=== PATIENT | male | born 1965 | race African-American/Black ===

== ENCOUNTER 2017-08-04 18:05 | Inpatient (IN) | payer OTHER ==
[2017-08-04 19:11] VITALS: BMI 33.5
[2017-08-04] MEDS ORDERED: MELATONIN 5 MG TABLETS PO PRN (22:00)
--- NOTE | 2017-08-04 22:43 | HP ---
COWS - Scale Resting Pulse: 0= [place] 80 or Below Sweatin= Chills/Flushing Restless Observation: 3= Extraneous Movement Pupil Size: 1= Pupils >than Normal Bone or Joint Aches: 1= Mild Discomfort Runny Nose/ Eye Tearin= Constantly Teary/Runny GI Upset > 30mins: 3= Vomiting/Diarrhea Tremor Observation: 0= None Yawning Observation: 1= 1-2x During Session Anxiety or Irritability: 2=Irritable/Anxious Goose Flesh Skin: 0=Smooth Skin COWS Score: 16 CIWA Score - CIWA Score Nausea/Vomitin Muscle Tremors: 1-None Visible, but [place] Anxiety: 3 Agitation: 3 Paroxysmal Sweats: 2 Orientation: 0-Oriented Tacttile Disturbances: 0-None Auditory Disturbances: 0-None Visual Disturbances: 0-None Headache: 2-Mild CIWA-Ar Total Score: 14 Admission ROS S - HPI Chief Complaint: heroin and alcohol withdrawal symptoms Allergies/Adverse Reactions: Allergies Allergy/AdvReac Type Severity Reaction Status Date / Time No Known Allergies Allergy Verified 08/04/17 22:07 History of Present Illness: 52 yo male with hx of nicotine, cocaine, heroin and alcohol dependence is here seeking detox for the first time. PMHX: HTN, BPH, anxiety. Denies suicidal / homicidal ideation or hx of suicide attempts. Denies hx of seizures, blackouts or overdose. Last detox [facility] December 2016. Reports longest period of sobriety 5 months. Exam Limitations: No Limitations - Ebola screening Have you been sick,other than usual withdrawal symptoms: No - Review of Systems Constitutional: Chills, Diaphoresis, Changes in sleep EENT: reports: Dental Problems (missing teeth), Other (runny nose) Respiratory: reports: Cough Cardiac: reports: No Symptoms Reported GI: reports: Diarrhea, Nausea, Poor Fluid Intake, Vomiting, Abdominal cramping : reports: See HPI Musculoskeletal: reports: Back Pain Integumentary: reports: No Symptoms Reported Neuro: reports: See HPI Endocrine: reports: Increased Thirst Hematology: reports: No Symptoms Reported Psychiatric: reports: Orientated x3, Anxious Other Systems: Reviewed and Negative Patient History - Patient Medical History Hx Anemia: No Hx Asthma: No Hx Chronic Obstructive Pulmonary Disease (COPD): No Hx Cancer: No Hx Cardiac Disorders: No Hx Congestive Heart Failure: No Hx Hypertension: Yes Hx Hypercholesterolemia: No Hx Pacemaker: No HX Cerebrovascular Accident: No Hx Seizures: No Hx Dementia: No Hx Diabetes: No Hx Gastrointestinal Disorders: No Hx Liver Disease: No Hx Genitourinary Disorders: No Hx Sexually Transmitted Disorders: No Hx Renal Disease (ESRD): No Hx Thyroid Disease: No Hx Human Immunodeficiency Virus (HIV): No (last tested 3 months ago, negative ) Hx Hepatitis C: No Hx Depression: No Hx Suicide Attempt: No Hx Bipolar Disorder: No Hx Schizophrenia: No - Patient Surgical History Past Surgical History: No Hx Neurologic Surgery: No Hx Cataract Extraction: No Hx Cardiac Surgery: No Hx Lung Surgery: No Hx Breast Surgery: No Hx Breast Biopsy: No Hx Abdominal Surgery: No Hx Appendectomy: No Hx Cholecystectomy: No Hx Genitourinary Surgery: No Hx Section: No Hx Orthopedic Surgery: No - PPD History Previous Implant?: Yes Documented Results: Negative w/o proof Implanted On Prior R Admission?: No PPD to be Administered?: Yes - Smoking Cessation Smoking history: Current every day smoker Have you smoked in the past 12 months: Yes Aproximately how many cigarettes per day: 3 Hx Chewing Tobacco Use: No Initiated information on smoking cessation: Yes 'Breaking Loose' booklet given: 08/04/17 - Substance & Tx. History Hx Alcohol Use: Yes Hx Substance Use: Yes Substance Use Type: Alcohol, Cocaine, Heroin - Substances Abused Heroin Route: Inhalation Frequency: Daily Amount used: 13 bags Age of first use: 16 Date of Last Use: 08/04/17 Alcohol Route: Oral Frequency: Daily Amount used: 1 quart of [place] Liquor Age of first use: 16 Date of Last Use: 08/04/17 Cocaine Route: Inhalation Frequency: 1-2 times per week Amount used: $50 Age of first use: 50 Date of Last Use: 08/01/17 Family Disease History - Family Disease History Family Disease History: Other: Father (, unknown ), Mother (, unknown ) Admission Physical Exam [facility]HS - Vital Signs Vital Signs: Vital Signs - 24 hr 08/04/17 19:09 Temperature 97.8 F Pulse Rate 75 Respiratory 18 Rate Blood Pressure 147/109 - Physical General Appearance: Yes: Appropriately Dressed, Mild Distress, Sweating, Anxious HEENTM: Yes: EOMI, Hearing grossly Normal, Normal ENT Inspection, Normocephalic , Normal Voice, SAURABH, Pharynx Normal, Tm's normal, Rhinorrhea, Other (poor dentition) Respiratory: Yes: Chest Non-Tender, Lungs Clear, Normal Breath Sounds, No Respiratory Distress, No Accessory Muscle Use Neck: Yes: No masses,lesions,Nodules, Trachea in good position Breast: Yes: Breast Exam Deferred Cardiology: Yes: Regular Rhythm, Regular Rate Abdominal: Yes: Normal Bowel Sounds, Non Tender, Soft, Protuberent Genitourinary: Yes: Within Normal Limits Back: Yes: Normal Inspection Musculoskeletal: Yes: full range of Motion, Gait Steady, Pelvis Stable Extremities: Yes: Normal Capillary Refill, Normal Inspection, Normal Range of Motion, Non-Tender 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, Fully Oriented, Alert, Motor Strength 5/5, Depressed Affect Integumentary: Yes: Normal Color, Warm, Moist Lymphatic: Yes: Within Normal Limits - Diagnostic (1) Opioid dependence with withdrawal Current Visit: Yes Status: Acute (2) Alcohol dependence with withdrawal Current Visit: Yes Status: Acute Qualifiers: Complication of substance-induced condition: uncomplicated Qualified Code(s ): F10.230 - Alcohol dependence with withdrawal, uncomplicated (3) Cocaine dependence Current Visit: Yes Status: Acute (4) Hypertension Current Visit: Yes Status: Chronic Qualifiers: Hypertension type: essential hypertension Qualified Code(s): I10 - Essential (primary) hypertension (5) Elevated blood pressure reading with diagnosis of hypertension Current Visit: Yes Status: Acute (6) BPH (benign prostatic hyperplasia) Current Visit: Yes Status: Chronic Qualifiers: Lower urinary tract symptom presence: unspecified whether lower urinary tract symptoms present Qualified Code(s): N40.0 - Benign prostatic hyperplasia without lower urinary tract symptoms (7) Obese Current Visit: Yes Status: Chronic Qualifiers: Obesity type: unspecified obesity type Obesity classification: adult class 1 (BMI 30 - 34.9) Serious obesity comorbidity presence: with serious comorbidity (8) Difficulty sleeping Current Visit: Yes Status: Acute (9) Back pain Current Visit: Yes Status: Acute Qualifiers: Back pain location: low back pain Chronicity: acute Back pain laterality : midline Sciatica presence: without sciatica Qualified Code(s): M54.5 - Low back pain Cleared for Admission S - Detox or Rehab [facility] Level of Care: Medically Managed Detox Regimen/Protocol: Methadone/Librium BHS Breath Alcohol Content Breath Alcohol Content: 0 Urine Drug Screen - Results Drug Screen Negative: No Urine Drug Screen Results: PACO-Cocaine, OPI-Opiates
[2017-08-04] MEDS ORDERED: cloNIDine HCL 0.1 MG TABLET PO ONE (22:54)
[2017-08-04] MEDS ORDERED: MAG HYDROX/AL HYDROX/SIMETH 30 ML UNIT-DOSE CUP PO PRN (22:57)
[2017-08-04] MEDS ORDERED: chlordiazePOXIDE HCL 25 MG CAPSULE PO ONE (22:57)
[2017-08-04] MEDS ORDERED: MAGNESIUM CITRATE 300 ML BOTTLE PO PRN (22:57)
[2017-08-04] MEDS ORDERED: NICOTINE POLACRILEX 2 MG GUM BC PRN (22:57)
[2017-08-04] MEDS ORDERED: METHADONE HCL 10 MG TABLET (FOR DETOX USE ONLY) PO ONE ×2 (22:57→23:00)
[2017-08-04] MEDS ORDERED: LOPERAMIDE HCL 2 MG CAPSULE PO PRN (22:57)
[2017-08-04] MEDS ORDERED: chlordiazePOXIDE HCL 25 MG CAPSULE PO PRN (22:57)
[2017-08-04] MEDS ORDERED: ACETAMINOPHEN 325 MG TABLET (FP) PO PRN (22:57)
[2017-08-04] MEDS ORDERED: IBUPROFEN 400 MG TABLET (FP) PO PRN (22:57)
[2017-08-04] MEDS ORDERED: hydrOXYzine PAMOATE 50 MG CAPSULE (FP) PO PRN (22:57)
[2017-08-04] MEDS ORDERED: guaiFENesin/D-METHORPHAN HB 10 ML UNIT-DOSE CUPS PO PRN (22:57)
[2017-08-04] MEDS ORDERED: MENTHOL/PHENOL 1 EACH UD MM PRN (22:57)
[2017-08-04] MEDS ORDERED: P-EPHED 60MG/TRIPROLIDI 2.5MG TABLET PO PRN (22:57)
[2017-08-04] MEDS ORDERED: MAGNESIUM HYDROX 2400MG/30ML ORAL SUSPENSION 30 ML CUP PO PRN (22:57)
[2017-08-04] MEDS: chlordiazePOXIDE HCL 25 MG CAPSULE PO SCH (23:59)
[2017-08-04] MEDS: CYCLOBENZAPRINE HCL 5 MG TABLET PO SCH (23:59)
[2017-08-05] MEDS: LIDOCAINE PATCH REMOVAL MC SCH ×2 (00:01→22:19)
[2017-08-05] MEDS: chlordiazePOXIDE HCL 25 MG CAPSULE PO SCH ×4 (05:40→22:17)
[2017-08-05] MEDS: CYCLOBENZAPRINE HCL 5 MG TABLET PO SCH ×3 (05:40→22:17)
[2017-08-05] MEDS: TAMSULOSIN HCL 0.4 MG CAP.ER.24H (FP) PO SCH (08:53)
--- NOTE | 2017-08-05 09:30 | CONSULT ---
[facility] Psychiatric Consult - Data Date of interview: 08/05/17 Admission source: [facility] Identifying data: This is 52 years old male, single father of two, living alone , on PA, with no hiatory of psychiatric hospitalizations, with hx of nicotine, cocaine, heroin and alcohol dependence is here seeking detox for the first time. Substance Abuse History: Smoking history: Current every day smoker. Have you smoked in the past 12 months: Yes. Aproximately how many cigarettes per day: 3. Hx Chewing Tobacco Use: No. Initiated information on smoking cessation: Yes. 'Breaking Loose' booklet given: 08/04/17. - Substance & Tx. History. Hx Alcohol Use: Yes. Hx Substance Use: Yes. Substance Use Type: Alcohol, Cocaine , Heroin. - Substances Abused. Heroin. Route: Inhalation. Frequency: Daily. Amount used: 13 bags. Age of first use: 16. Date of Last Use: . Alcohol. Route: Oral. Frequency: Daily. Amount used: 1 quart of [place] Liquor. Age of first use: 16. Date of Last Use: 08/04/17. Cocaine. Route: Inhalation. Frequency: 1-2 times per week. Amount used: $50. Age of first use: 50. Date of Last Use: 08/01/17 Medical History: Denies any significant medical problems.As per computerbhistory of HTN and Obesity Psychiatric History: Patient reports no psychiatric hospitalization history, no medications taking priormto admission. Reports history of anxiety and depression Physical/Sexual Abuse/Trauma History: Denies Additional Comment: Observation. Detox Unit Care Mental Status Exam - Mental Status Exam Alert and Oriented to: Person Cognitive Function: Fair Patient Appearance: Unkempt Mood: Euphoric Affect: Euthymic Patient Behavior: Resitive to Care, Cooperative Voice Loudness: Mildly Loud Thought Process: Goal Oriented Thought Disorder: Being Controlled Hallucinations: Denies Suicidal Ideation: Denies Homicidal Ideation: Denies Insight/Judgement: Fair Sleep: Difficulty falling asleep Appetite: Fair Muscle strength/Tone: Mild Hypotonicity Gait/Station: Normal Additional Comments: Observation. Detox Unit Care Psychiatric Findings - Problem List ([place] 1, 2,3) (1) Alcohol dependence with withdrawal Current Visit: Yes Status: Acute Qualifiers: Complication of substance-induced condition: uncomplicated Qualified Code(s ): F10.230 - Alcohol dependence with withdrawal, uncomplicated (2) Cocaine dependence Current Visit: Yes Status: Acute (3) Difficulty sleeping Current Visit: Yes Status: Acute (4) Elevated blood pressure reading with diagnosis of hypertension Current Visit: Yes Status: Acute (5) Opioid dependence with withdrawal Current Visit: Yes Status: Acute (6) BPH (benign prostatic hyperplasia) Current Visit: Yes Status: Chronic Qualifiers: Lower urinary tract symptom presence: unspecified whether lower urinary tract symptoms present Qualified Code(s): N40.0 - Benign prostatic hyperplasia without lower urinary tract symptoms (7) Hypertension Current Visit: Yes Status: Chronic Qualifiers: Hypertension type: essential hypertension Qualified Code(s): I10 - Essential (primary) hypertension (8) Obese Current Visit: Yes Status: Chronic Qualifiers: Obesity type: unspecified obesity type Obesity classification: adult class 1 (BMI 30 - 34.9) Serious obesity comorbidity presence: with serious comorbidity - Initial Treatment Plan Initial Treatment Plan: Observation. Detox Unit Care
[2017-08-05] MEDS ORDERED: METHADONE HCL 10 MG TABLET (FOR DETOX USE ONLY) PO SCH (10:00)
[2017-08-05 10:03] LABS: MCH 30.4 pg (25.7-33.7); WHITE BLOOD COUNT 7.9 K/mm3 (4.0-10.0)
[2017-08-05 10:06] LABS: HEMATOCRIT 37.8 % (35.4-49); HEMOGLOBIN 12.6 GM/dL (11.7-16.9); MCHC 33.5 g/dl (32.0-35.9); MEAN CELL VOLUME 90.7 fl (80-96); MEAN PLT VOLUME 11.9 fl (7.5-11.1); PLATELET COUNT 198 K/MM3 (134-434); RBC 4.17 M/mm3 (4.00-5.60); RDW 14.4 % (11.9-15.9)
[2017-08-05] MEDS: HYDROCHLOROTHIAZIDE 25 MG TABLET (FP) PO SCH (10:41)
[2017-08-05] MEDS: PRENATAL VITAMINS W/ FOLIC ACID TABLET (FP) PO SCH (10:41)
[2017-08-05] MEDS: amLODIPine BESYLATE 10 MG TABLET (FP) PO SCH (10:41)
[2017-08-05] MEDS: NICOTINE 14 MG/24 HOURS TOPICAL PATCH TD SCH (10:42)
[2017-08-05] MEDS: LISINOPRIL 10 MG TABLET (FP) PO SCH (10:42)
[2017-08-05] MEDS: LIDOCAINE 5% TOPICAL PATCH TP SCH (10:45)
[2017-08-05 10:46] LABS: CHLORIDE 108 mmol/L (98-107); POTASSIUM 4.2 mmol/L (3.5-5.1); SODIUM 143 mmol/L (136-145)
--- NOTE | 2017-08-05 11:02 | PN ---
S CIWA - CIWA Score Nausea/Vomitin-Mild Nausea/No Vomiting Muscle Tremors: 1-None Visible, but [place] Anxiety: 2 Agitation: 0-Normal Activity Paroxysmal Sweats: No Perspiration Orientation: 0-Oriented Tacttile Disturbances: 0-None Auditory Disturbances: 0-None Visual Disturbances: 0-None Headache: 0-None Present CIWA-Ar Total Score: 4 BHS COWS - Scale Resting Pulse: 0= [place] 80 or Below Sweatin= Chills/Flushing Restless Observation: 0= Sits Still Pupil Size: 0= Normal to Room Light Bone or Joint Aches: 1= Mild Discomfort Runny Nose/ Eye Tearin= None GI Upset > 30mins: 1= Stomach Cramp Tremor Observation of Outstretched Hands: 1= Tremor [place], Not Seen Yawning Observation: 0= None Anxiety or Irritability: 1=Feels Anxious/Irritable Goose Flesh Skin: 0=Smooth Skin COWS Score: 5 BHS Progress Note (SOAP) Subjective: Patient presents resting in bed. In no acute distress. C/O anxiety, chills and mild tremors. Denies CP,SOB and dizziness. Objective: 08/05/17 11:00 General: Alert and oriented x3. In no acute distress Skin: warm and moist GI: soft, NT and ND Ext: no edema Laboratory Tests 08/05/17 08/05/17 07:00 07:00 WBC 7.9 RBC 4.17 Hgb 12.6 Hct 37.8 MCV 90.7 MCH 30.4 MCHC 33.5 RDW 14.4 Plt Count 198 MPV 11.9 H Sodium 143 Potassium 4.2 Chloride 108 H Vital Signs Temperature 98.1 F 08/05/17 09:50 Pulse Rate 76 08/05/17 09:50 Respiratory Rate 18 08/05/17 09:50 Blood Pressure 150/115 08/05/17 09:50 O2 Sat by Pulse Oximetry (%) 08/05/17 11:01 Assessment: 08/05/17 11:01 Etoh/Heroin withdrawal syndrome Withdrawal syndrome Plan: Continue oral fluids and detox continue to monitor clinically
[2017-08-05 11:14] LABS: ALK PHOS 122 U/L (45-117); ANION GAP 10 (8-16); BILIRUBIN,TOTAL 0.3 mg/dL (0.2-1.0); BLOOD UREA NITROGEN 18 mg/dL (7-18); CALCIUM 8.2 mg/dL (8.5-10.1); CO2 25 mmol/L (21-32); CREATININE 1.2 mg/dL (0.7-1.3); GLUCOSE,RANDOM 165 mg/dL (74-106); SGOT/AST 26 U/L (15-37); SGPT/ALT 38 U/L (12-78); TOT PROT 6.4 g/dl (6.4-8.2)
--- NOTE | 2017-08-05 11:59 | EKG ---
Test Reason : Blood Pressure : / mmHG Vent. Rate : 068 BPM Atrial Rate : 068 BPM P-R Int : 196 ms QRS Dur : 104 ms QT Int : 374 ms P-R-T Axes : -15 015 061 degrees QTc Int : 397 ms NORMAL SINUS RHYTHM INCOMPLETE RIGHT BUNDLE BRANCH BLOCK SEPTAL INFARCT (CITED ON OR BEFORE 04-AUG-2017) ABNORMAL ECG WHEN COMPARED WITH ECG OF 04-AUG-2017 23:18, NO SIGNIFICANT CHANGE WAS FOUND Confirmed by GÓMEZ WALLACE MD ([id number]) on 08/05/2017 11:58:48 AM Referred By: Confirmed By:GÓMEZ WALLACE MD
--- NOTE | 2017-08-05 12:00 | EKG ---
Test Reason : Blood Pressure : / mmHG Vent. Rate : 071 BPM Atrial Rate : 071 BPM P-R Int : 194 ms QRS Dur : 106 ms QT Int : 358 ms P-R-T Axes : 016 -10 086 degrees QTc Int : 389 ms NORMAL SINUS RHYTHM INCOMPLETE RIGHT BUNDLE BRANCH BLOCK SEPTAL INFARCT , AGE UNDETERMINED ABNORMAL ECG NO PREVIOUS ECGS AVAILABLE Confirmed by GÓMEZ WALLACE MD ([id number]) on 08/05/2017 11:59:30 AM Referred By: Confirmed By:GÓMEZ WALLACE MD
[2017-08-05] MEDS ORDERED: cloNIDine HCL 0.1 MG TABLET PO ONE (13:45)
[2017-08-05 14:05] LABS: URINE APPEARANCE CLEAR; URINE BILIRUBIN NEGATIVE (<2.0 mg/dL); URINE COLOR COLORLESS; URINE GLUCOSE (UA) NEGATIVE (NEGATIVE); URINE KETONE NEGATIVE (NEGATIVE); URINE LEUK ESTERASE NEGATIVE (NEGATIVE); URINE NITRITE NEGATIVE (NEGATIVE); URINE PROTEIN NEGATIVE (NEGATIVE); URINE UROBILINOGEN NEGATIVE mg/dL (0.2-1.0)
--- NOTE | 2017-08-05 14:43 | PN ---
S Progress Note Note: NOTIFIED BY RN PATIENT HAS ELEVATED BP. MORNING ANTIHYPERTENSIVES GIVEN ORDERED. WILL ORDER STAT DOSE OF CLONIDINE 0.1MG X ONE AND CONTINUE TO MONITOR CLINICALLY. Vital Signs Temperature 98.1 F 08/05/17 13:09 Pulse Rate 67 08/05/17 13:09 Respiratory Rate 16 08/05/17 13:09 Blood Pressure 154/109 08/05/17 13:09 O2 Sat by Pulse Oximetry (%)
[2017-08-05] MEDS: THIAMINE HCL 100 MG TABLET (FP) PO SCH (22:17)
[2017-08-06] MEDS: CYCLOBENZAPRINE HCL 5 MG TABLET PO SCH ×3 (06:32→22:58)
[2017-08-06] MEDS: chlordiazePOXIDE HCL 25 MG CAPSULE PO SCH ×3 (06:32→17:53)
[2017-08-06] MEDS: TAMSULOSIN HCL 0.4 MG CAP.ER.24H (FP) PO SCH (09:39)
[2017-08-06] MEDS: METHADONE HCL 5 MG TABLET (FOR DETOX USE ONLY) PO SCH (10:37)
[2017-08-06] MEDS: amLODIPine BESYLATE 10 MG TABLET (FP) PO SCH (10:39)
[2017-08-06] MEDS: PRENATAL VITAMINS W/ FOLIC ACID TABLET (FP) PO SCH (10:39)
[2017-08-06] MEDS: LIDOCAINE 5% TOPICAL PATCH TP SCH (10:39)
[2017-08-06] MEDS: LISINOPRIL 10 MG TABLET (FP) PO SCH (10:39)
[2017-08-06] MEDS: NICOTINE 14 MG/24 HOURS TOPICAL PATCH TD SCH (10:40)
[2017-08-06] MEDS: HYDROCHLOROTHIAZIDE 25 MG TABLET (FP) PO SCH (10:40)
--- NOTE | 2017-08-06 12:53 | PN ---
[facility] CIWA - CIWA Score Nausea/Vomitin-No Nausea/No Vomiting Muscle Tremors: None Anxiety: 0-No Anxiety, at Ease Agitation: 0-Normal Activity Paroxysmal Sweats: No Perspiration Orientation: 0-Oriented Tacttile Disturbances: 0-None Auditory Disturbances: 0-None S COWS - Scale Resting Pulse: 0= [place] 80 or Below Sweatin= No chills or Flushing Restless Observation: 0= Sits Still Pupil Size: 0= Normal to Room Light Bone or Joint Aches: 0= None Runny Nose/ Eye Tearin= None GI Upset > 30mins: 0= None Tremor Observation of Outstretched Hands: 0= None Yawning Observation: 0= None Anxiety or Irritability: 0= None Goose Flesh Skin: 0=Smooth Skin COWS Score: 0
--- NOTE | 2017-08-06 13:01 | PN ---
S Progress Note (SOAP) Subjective: Pt without complaints, feeling sleepy, on librium and methadone detox Objective: 08/06/17 12:55 CBC,CMP WBC 7.9 K/mm3 (4.0-10.0) 08/05/17 07:00 RBC 4.17 M/mm3 (4.00-5.60) 08/05/17 07:00 Hgb 12.6 GM/dL (11.7-16.9) 08/05/17 07:00 Hct 37.8 % (35.4-49) 08/05/17 07:00 MCV 90.7 fl (80-96) 08/05/17 07:00 MCH 30.4 pg (25.7-33.7) 08/05/17 07:00 MCHC 33.5 g/dl (32.0-35.9) 08/05/17 07:00 RDW 14.4 % (11.9-15.9) 08/05/17 07:00 Plt Count 198 K/MM3 (134-434) 08/05/17 07:00 MPV 11.9 fl (7.5-11.1) H 08/05/17 07:00 Sodium 143 mmol/L (136-145) 08/05/17 07:00 Potassium 4.2 mmol/L (3.5-5.1) 08/05/17 07:00 Chloride 108 mmol/L (98-107) H 08/05/17 07:00 Carbon Dioxide 25 mmol/L (21-32) 08/05/17 07:00 Anion Gap 10 (8-16) 08/05/17 07:00 BUN 18 mg/dL (7-18) 08/05/17 07:00 Creatinine 1.2 mg/dL (0.7-1.3) 08/05/17 07:00 Creat Clearance w eGFR > 60 (>60) 08/05/17 07:00 Random Glucose 165 mg/dL (74-106) H 08/05/17 07:00 Calcium 8.2 mg/dL (8.5-10.1) L 08/05/17 07:00 Total Bilirubin 0.3 mg/dL (0.2-1.0) 08/05/17 07:00 AST 26 U/L (15-37) 08/05/17 07:00 ALT 38 U/L (12-78) 08/05/17 07:00 Alkaline Phosphatase 122 U/L (45-117) H 08/05/17 07:00 Total Protein 6.4 g/dl (6.4-8.2) 08/05/17 07:00 Albumin 3.0 g/dl (3.4-5.0) L 08/05/17 07:00 Vital Signs - 24 hr 08/05/17 08/05/17 08/05/17 13:09 15:32 18:04 Temperature 98.1 F 97.9 F 97.7 F Pulse Rate 67 68 65 Respiratory 16 16 18 Rate Blood Pressure 154/109 135/76 140/93 08/05/17 08/06/17 08/06/17 22:34 00:30 03:30 Temperature 98.1 F Pulse Rate 67 Respiratory 20 18 18 Rate Blood Pressure 132/90 08/06/17 08/06/17 06:00 10:00 Temperature 97.9 F 98.1 F Pulse Rate 68 71 Respiratory 18 18 Rate Blood Pressure 145/96 149/93 alert and oriented feeling fine PE grossly nl PE Assessment: 08/06/17 13:00 Alcohol and opioid use disorder Plan: Continue detox protocols
[2017-08-06] MEDS: chlordiazePOXIDE 5 MG CAPSULE PO SCH (22:58)
[2017-08-06] MEDS: THIAMINE HCL 100 MG TABLET (FP) PO SCH (22:58)
[2017-08-06] MEDS: LIDOCAINE PATCH REMOVAL MC SCH (22:58)
[2017-08-07] MEDS: chlordiazePOXIDE 5 MG CAPSULE PO SCH ×3 (05:36→18:25)
[2017-08-07] MEDS: CYCLOBENZAPRINE HCL 5 MG TABLET PO SCH ×3 (05:36→23:02)
--- NOTE | 2017-08-07 10:02 | PN ---
BHS Progress Note (SOAP) Subjective: Tremors, sweats, interrupted sleep and back pain Objective: 08/07/17 10:01 Vital Signs - 8 hr 08/07/17 08/07/17 03:30 06:18 Temperature 97.9 F Pulse Rate 72 Respiratory 18 20 Rate Blood Pressure 135/94 Laboratory Last Values WBC 7.9 K/mm3 (4.0-10.0) 08/05/17 07:00 RBC 4.17 M/mm3 (4.00-5.60) 08/05/17 07:00 Hgb 12.6 GM/dL (11.7-16.9) 08/05/17 07:00 Hct 37.8 % (35.4-49) 08/05/17 07:00 MCV 90.7 fl (80-96) 08/05/17 07:00 MCH 30.4 pg (25.7-33.7) 08/05/17 07:00 MCHC 33.5 g/dl (32.0-35.9) 08/05/17 07:00 RDW 14.4 % (11.9-15.9) 08/05/17 07:00 Plt Count 198 K/MM3 (134-434) 08/05/17 07:00 MPV 11.9 fl (7.5-11.1) H 08/05/17 07:00 Sodium 143 mmol/L (136-145) 08/05/17 07:00 Potassium 4.2 mmol/L (3.5-5.1) 08/05/17 07:00 Chloride 108 mmol/L (98-107) H 08/05/17 07:00 Carbon Dioxide 25 mmol/L (21-32) 08/05/17 07:00 Anion Gap 10 (8-16) 08/05/17 07:00 BUN 18 mg/dL (7-18) 08/05/17 07:00 Creatinine 1.2 mg/dL (0.7-1.3) 08/05/17 07:00 Creat Clearance w eGFR > 60 (>60) 08/05/17 07:00 Random Glucose 165 mg/dL (74-106) H 08/05/17 07:00 Calcium 8.2 mg/dL (8.5-10.1) L 08/05/17 07:00 Total Bilirubin 0.3 mg/dL (0.2-1.0) 08/05/17 07:00 AST 26 U/L (15-37) 08/05/17 07:00 ALT 38 U/L (12-78) 08/05/17 07:00 Alkaline Phosphatase 122 U/L (45-117) H 08/05/17 07:00 Total Protein 6.4 g/dl (6.4-8.2) 08/05/17 07:00 Albumin 3.0 g/dl (3.4-5.0) L 08/05/17 07:00 Urine Color Colorless 08/05/17 10:10 Urine Appearance Clear 08/05/17 10:10 Urine pH 6.0 (5.0-8.0) 08/05/17 10:10 Ur Specific [place] 1.005 (1.001-1.035) 08/05/17 10:10 Urine Protein Negative (NEGATIVE) 08/05/17 10:10 Urine Glucose (UA) Negative (NEGATIVE) 08/05/17 10:10 Urine Ketones Negative (NEGATIVE) 08/05/17 10:10 Urine Blood Negative (NEGATIVE) 08/05/17 10:10 Urine Nitrite Negative (NEGATIVE) 08/05/17 10:10 Urine Bilirubin Negative (<2.0 mg/dL) 08/05/17 10:10 Urine Urobilinogen Negative mg/dL (0.2-1.0) 08/05/17 10:10 Ur Leukocyte Esterase Negative (NEGATIVE) 08/05/17 10:10 RPR Titer Nonreactive (NONREACTIVE) 08/05/17 07:00 HIV 1&2 Antibody Screen Negative 08/05/17 07:00 HIV P24 Antigen Negative 08/05/17 07:00 Labs noted Assessment: 08/07/17 10:02 Withdrawal sx Plan: Continue detox
[2017-08-07] MEDS: METHADONE HCL 5 MG TABLET (FOR DETOX USE ONLY) PO SCH (10:42)
[2017-08-07] MEDS: TAMSULOSIN HCL 0.4 MG CAP.ER.24H (FP) PO SCH (10:42)
[2017-08-07] MEDS: LISINOPRIL 10 MG TABLET (FP) PO SCH (10:42)
[2017-08-07] MEDS: PRENATAL VITAMINS W/ FOLIC ACID TABLET (FP) PO SCH (10:42)
[2017-08-07] MEDS: amLODIPine BESYLATE 10 MG TABLET (FP) PO SCH (10:42)
[2017-08-07] MEDS: HYDROCHLOROTHIAZIDE 25 MG TABLET (FP) PO SCH (10:43)
[2017-08-07] MEDS: LIDOCAINE 5% TOPICAL PATCH TP SCH (10:43)
[2017-08-07] MEDS: NICOTINE 14 MG/24 HOURS TOPICAL PATCH TD SCH (10:43)
[2017-08-07] MEDS: LIDOCAINE PATCH REMOVAL MC SCH (22:55)
[2017-08-07] MEDS: THIAMINE HCL 100 MG TABLET (FP) PO SCH (23:02)
[2017-08-07] MEDS: chlordiazePOXIDE HCL 10 MG CAPSULE PO SCH (23:02)
[2017-08-08] MEDS: chlordiazePOXIDE HCL 10 MG CAPSULE PO SCH ×3 (05:34→17:55)
[2017-08-08] MEDS: CYCLOBENZAPRINE HCL 5 MG TABLET PO SCH ×2 (05:37→13:51)
[2017-08-08] MEDS ORDERED: METHADONE HCL 10 MG TABLET (FOR DETOX USE ONLY) PO SCH (10:00)
[2017-08-08] MEDS: PRENATAL VITAMINS W/ FOLIC ACID TABLET (FP) PO SCH (10:11)
[2017-08-08] MEDS: HYDROCHLOROTHIAZIDE 25 MG TABLET (FP) PO SCH (10:12)
[2017-08-08] MEDS: LISINOPRIL 10 MG TABLET (FP) PO SCH (10:12)
[2017-08-08] MEDS: amLODIPine BESYLATE 10 MG TABLET (FP) PO SCH (10:12)
[2017-08-08] MEDS: TAMSULOSIN HCL 0.4 MG CAP.ER.24H (FP) PO SCH (10:12)
[2017-08-08] MEDS: NICOTINE 14 MG/24 HOURS TOPICAL PATCH TD SCH (10:12)
[2017-08-08] MEDS: LIDOCAINE 5% TOPICAL PATCH TP SCH (10:15)
[2017-08-08] MEDS ORDERED: ENALAPRIL MALEATE 10 MG TABLET (FP) PO ONE (16:30)
[2017-08-08] MEDS ORDERED: ENALAPRIL MALEATE 10 MG TABLET (FP) PO SCH (16:30)
--- NOTE | 2017-08-08 16:31 | PN ---
[facility] Progress Note (SOAP) Subjective: feeling better from alcohol and opiate withdrawal sx Objective: 08/08/17 16:29 Vital Signs Temperature 97.7 F 08/08/17 13:10 Pulse Rate 75 08/08/17 13:10 Respiratory Rate 18 08/08/17 13:10 Blood Pressure 147/81 08/08/17 13:10 O2 Sat by Pulse Oximetry (%) Laboratory Last Values WBC 7.9 K/mm3 (4.0-10.0) 08/05/17 07:00 RBC 4.17 M/mm3 (4.00-5.60) 08/05/17 07:00 Hgb 12.6 GM/dL (11.7-16.9) 08/05/17 07:00 Hct 37.8 % (35.4-49) 08/05/17 07:00 MCV 90.7 fl (80-96) 08/05/17 07:00 MCH 30.4 pg (25.7-33.7) 08/05/17 07:00 MCHC 33.5 g/dl (32.0-35.9) 08/05/17 07:00 RDW 14.4 % (11.9-15.9) 08/05/17 07:00 Plt Count 198 K/MM3 (134-434) 08/05/17 07:00 MPV 11.9 fl (7.5-11.1) H 08/05/17 07:00 Sodium 143 mmol/L (136-145) 08/05/17 07:00 Potassium 4.2 mmol/L (3.5-5.1) 08/05/17 07:00 Chloride 108 mmol/L (98-107) H 08/05/17 07:00 Carbon Dioxide 25 mmol/L (21-32) 08/05/17 07:00 Anion Gap 10 (8-16) 08/05/17 07:00 BUN 18 mg/dL (7-18) 08/05/17 07:00 Creatinine 1.2 mg/dL (0.7-1.3) 08/05/17 07:00 Creat Clearance w eGFR > 60 (>60) 08/05/17 07:00 Random Glucose 165 mg/dL (74-106) H 08/05/17 07:00 Calcium 8.2 mg/dL (8.5-10.1) L 08/05/17 07:00 Total Bilirubin 0.3 mg/dL (0.2-1.0) 08/05/17 07:00 AST 26 U/L (15-37) 08/05/17 07:00 ALT 38 U/L (12-78) 08/05/17 07:00 Alkaline Phosphatase 122 U/L (45-117) H 08/05/17 07:00 Total Protein 6.4 g/dl (6.4-8.2) 08/05/17 07:00 Albumin 3.0 g/dl (3.4-5.0) L 08/05/17 07:00 Urine Color Colorless 08/05/17 10:10 Urine Appearance Clear 08/05/17 10:10 Urine pH 6.0 (5.0-8.0) 08/05/17 10:10 Ur Specific [place] 1.005 (1.001-1.035) 08/05/17 10:10 Urine Protein Negative (NEGATIVE) 08/05/17 10:10 Urine Glucose (UA) Negative (NEGATIVE) 08/05/17 10:10 Urine Ketones Negative (NEGATIVE) 08/05/17 10:10 Urine Blood Negative (NEGATIVE) 08/05/17 10:10 Urine Nitrite Negative (NEGATIVE) 08/05/17 10:10 Urine Bilirubin Negative (<2.0 mg/dL) 08/05/17 10:10 Urine Urobilinogen Negative mg/dL (0.2-1.0) 08/05/17 10:10 Ur Leukocyte Esterase Negative (NEGATIVE) 08/05/17 10:10 RPR Titer Nonreactive (NONREACTIVE) 08/05/17 07:00 HIV 1&2 Antibody Screen Negative 08/05/17 07:00 HIV P24 Antigen Negative 08/05/17 07:00 lab noted Assessment: 08/08/17 16:30 mild withdrawal sx 08/08/17 16:30 hypertension Plan: medically supervised detox follow up with cardiology for bp monitoring
[2017-08-09] MEDS ORDERED: METHADONE HCL 5 MG TABLET (FOR DETOX USE ONLY) PO SCH (06:00)
[2017-08-09] MEDS: CYCLOBENZAPRINE HCL 5 MG TABLET PO SCH ×3 (07:10→14:30)
[2017-08-09] MEDS: LIDOCAINE PATCH REMOVAL MC SCH (08:36)
[2017-08-09] MEDS: THIAMINE HCL 100 MG TABLET (FP) PO SCH (08:36)
[2017-08-09] MEDS ORDERED: ENALAPRIL MALEATE 10 MG TABLET (FP) PO SCH (10:00)
--- NOTE | 2017-08-09 10:49 | PN ---
S Progress Note (SOAP) Subjective: ALERT,NO COMPLAINT Objective: 08/09/17 10:47 Vital Signs Temperature 97.7 F 08/09/17 08:09 Pulse Rate 78 08/09/17 08:09 Respiratory Rate 20 08/09/17 08:09 Blood Pressure 125/104 08/09/17 08:09 O2 Sat by Pulse Oximetry (%) Assessment: 08/09/17 10:48 DETOX COMPLETED,NO WITHDRAWAL SYMPTOM Plan: DISCHARGE TODAY,FOLLOW UP WITH AFTER CARE PROGRAM ARRANGEMENT
--- NOTE | 2017-08-09 10:55 | DS ---
[facility] Detox Discharge Summary Admission Date: 08/04/17 Discharge Date: 08/09/17 - History Present History: Alcohol Dependence, Cocaine Dependence, Opioid Dependence Pertinent Past History: HYPERTENSION BPH - Physical Exam Results Vital Signs: Vital Signs Temperature 97.7 F 08/09/17 08:09 Pulse Rate 78 08/09/17 08:09 Respiratory Rate 20 08/09/17 08:09 Blood Pressure 125/104 08/09/17 08:09 O2 Sat by Pulse Oximetry (%) Pertinent Admission Physical Exam Findings: WITHDRAWAL SIGNS AND SYMPTOM - Treatment Hospital Course: Detox Protocol Followed, Detoxed Safely, Responded well, Discharged Condition Good, Rehab Referral Accepted Patient has Accepted a Rehab Referral to: [facility] - Medication Discharge Medications: Ambulatory Orders Tamsulosin HCl 4 mg PO DAILY 08/04/17 Amlodipine Besylate [Norvasc -] 10 mg PO DAILY #30 tablet 08/08/17 Enalapril Maleate [Vasotec] 20 mg PO DAILY 30 Days #30 tablet 08/08/17 Hydrochlorothiazide [Hctz -] 25 mg PO DAILY #30 tablet 08/08/17 Tamsulosin HCl [Flomax -] 0.4 mg PO DAILY@0830 #30 cap.er.24h 08/08/17 - Diagnosis (1) Opioid dependence with withdrawal Current Visit: Yes Status: Chronic (2) Cocaine dependence Current Visit: Yes Status: Acute Qualifiers: Substance use status: uncomplicated Qualified Code(s): F14.20 - Cocaine dependence, uncomplicated (3) Alcohol dependence with withdrawal Current Visit: Yes Status: Chronic Qualifiers: Complication of substance-induced condition: uncomplicated Qualified Code(s ): F10.230 - Alcohol dependence with withdrawal, uncomplicated (4) BPH (benign prostatic hyperplasia) Current Visit: Yes Status: Chronic Qualifiers: Lower urinary tract symptom presence: unspecified whether lower urinary tract symptoms present Qualified Code(s): N40.0 - Benign prostatic hyperplasia without lower urinary tract symptoms (5) Hypertension Current Visit: Yes Status: Chronic Qualifiers: Hypertension type: essential hypertension Qualified Code(s): I10 - Essential (primary) hypertension - AMA Did Patient Leave Against Medical Advice: No
[2017-08-09] MEDS: amLODIPine BESYLATE 10 MG TABLET (FP) PO SCH (11:15)
[2017-08-09] MEDS: HYDROCHLOROTHIAZIDE 25 MG TABLET (FP) PO SCH (11:20)
[2017-08-09] MEDS: PRENATAL VITAMINS W/ FOLIC ACID TABLET (FP) PO SCH (11:20)
[2017-08-09] MEDS: LIDOCAINE 5% TOPICAL PATCH TP SCH (11:20)
[2017-08-09] MEDS: NICOTINE 14 MG/24 HOURS TOPICAL PATCH TD SCH (11:20)
[2017-08-09] MEDS: TAMSULOSIN HCL 0.4 MG CAP.ER.24H (FP) PO SCH (11:20)
[2017-08-09 17:43] VITALS: BP 150/95; PULSE 92; TEMP 98.2
[2017-08-10] MEDS ORDERED: IBUPROFEN 400 MG TABLET (FP) PO ONE (07:17)
== END 2017-08-09 18:13 | disposition other institution (70) | DRG 773 ==
LOC: YASAS 18:05 → Y6N 22:48
PROVIDERS: ADMIT Family Medicine Addiction Medicine; ATTEND Family Medicine Addiction Medicine
PROC: HZ2ZZZZ Detoxification Services for Substance Abuse Treatment (ICD-10-PCS; principal; 2017-08-04)
DX: F11.23 Opioid dependence with withdrawal (principal); F10.230 Alcohol dependence with withdrawal, uncomplicated; F14.20 Cocaine dependence, uncomplicated; F17.210 Nicotine dependence, cigarettes, uncomplicated; I10 Essential (primary) hypertension; N40.0 Benign prostatic hyperplasia without lower urinary tract symptoms; M54.5 Low back pain; G47.00 Insomnia, unspecified; E66.9 Obesity, unspecified; Z68.33 Body mass index [BMI] 33.0-33.9, adult
CPT/HCPCS: 36415; 80053; 81003; 85027; 86593; 87389; 93005; 93010; J0735

== ENCOUNTER 2017-08-09 18:34 | Inpatient (IN) | payer OTHER ==
[2017-08-09] MEDS ORDERED: MAGNESIUM CITRATE 300 ML BOTTLE PO PRN (19:22)
[2017-08-09] MEDS ORDERED: MAGNESIUM HYDROX 2400MG/30ML ORAL SUSPENSION 30 ML CUP PO PRN (19:22)
[2017-08-09] MEDS ORDERED: ACETAMINOPHEN 325 MG TABLET (FP) PO PRN (19:22)
[2017-08-09] MEDS ORDERED: P-EPHED 60MG/TRIPROLIDI 2.5MG TABLET PO PRN (19:22)
[2017-08-09] MEDS ORDERED: guaiFENesin/D-METHORPHAN HB 10 ML UNIT-DOSE CUPS PO PRN (19:22)
[2017-08-09] MEDS ORDERED: MENTHOL/PHENOL 1 EACH UD MM PRN (19:22)
[2017-08-09] MEDS ORDERED: MAG HYDROX/AL HYDROX/SIMETH 30 ML UNIT-DOSE CUP PO PRN (19:22)
[2017-08-09] MEDS ORDERED: hydrOXYzine PAMOATE 50 MG CAPSULE (FP) PO PRN (19:22)
[2017-08-09] MEDS ORDERED: LOPERAMIDE HCL 2 MG CAPSULE PO PRN (19:22)
[2017-08-09] MEDS ORDERED: NICOTINE POLACRILEX 2 MG GUM BUC PRN (19:26)
--- NOTE | 2017-08-09 19:26 | HP ---
[facility] Rehab Assess/Revision - Admission History Admitted to Rehab from: [facility] [place] Date of Admission to Rehab: 08/09/17 - Vital signs Vital Signs: Vital Signs Period Temp Pulse Resp BP Sys/Pérez Pulse Ox Last 24 Hr 98.9 F 88 20 146/109 - Findings Detox History & Physical reviewed: Yes Concur with findings: Yes Inpatient Rehab Admission - Initial Determination Are CD services needed?: Yes Free of communicable disease: Yes Not in need of hospitalization: Yes - Rehab Admission Criteria Previous failed treatment: Yes Poor recovery environment: Yes Comorbidities: Yes Lacks judgement: Yes Patient is meeting Inpatient Rehab admission criteria:: Yes
[2017-08-09] MEDS: ENALAPRIL MALEATE 10 MG TABLET (FP) PO SCH (20:11)
[2017-08-09] MEDS: THIAMINE HCL 100 MG TABLET (FP) PO SCH (21:47)
[2017-08-09] MEDS ORDERED: MELATONIN 5 MG TABLETS PO PRN (22:00)
--- NOTE | 2017-08-10 06:39 | HP ---
Psychiatrist Admission - Data Date of interview: 08/10/17 Admission source: [facility] [employer] Identifying data: This is the first [facility] for this 52 years old single Black male, father of 2 children, unemployed on food stamp, living with family Medical History: Significant for hypertension and BPH. Smokes 3 cigarettes daily Psychiatric History: Denies history of previous psychiatric treatment Physical/Sexual Abuse/Trauma History: Denies history of emotional, physical or sexual abuse as well as DV relationship. No service Additional Comment: Reports history of multiple previous including one felony conviction. denies being on parole/probation at present Vital Signs: Vital Signs - 24 hr 08/09/17 08/10/17 08/10/17 18:59 00:30 03:30 Temperature 98.9 F Pulse Rate 88 Respiratory 20 18 18 Rate Blood Pressure 146/109 Allergies/Adverse Reactions: Allergies Allergy/AdvReac Type Severity Reaction Status Date / Time No Known Allergies Allergy Verified 08/04/17 22:07 Date of last physical exam: 08/04/17 Concur with the findings of this exam: Yes - Substance Abuse/Tx History Hx Alcohol Use: Yes Hx Substance Use: Yes Substance Use Type: Alcohol (Started drinking alcohol at age 16, consumes one quart of ciroc daily. Last drank on 08/04/17), Cocaine (Started using cocaine at age 50, consumes $50 worth daily. Last used on 08/01/17), Heroin (Started using heroin at age 16, consumes 13 bags daily. Last used on08/04/17) Hx Substance Use Treatment: Yes (2 previous inpt detox. First inpt rehab) Mental Status Exam - Mental Status Exam Alert and Oriented to: Time, Place, Person Cognitive Function: Fair Mood: Hopeful, Euthymic Affect: Appropriate Patient Behavior: Cooperative Speech Pattern: Clear Voice Loudness: Normal Thought Process: Intact, Goal Oriented Hallucinations: Denies Suicidal Ideation: Denies Homicidal Ideation: Denies Insight/Judgement: Fair Sleep: Well Appetite: Good Muscle strength/Tone: Normal Gait/Station: Normal Psychiatric Findings - Problem List ([place] 1, 2,3) (1) Alcohol dependence Current Visit: Yes Status: Acute (2) Opioid dependence Current Visit: Yes Status: Acute (3) Cocaine dependence Current Visit: No Status: Acute Qualifiers: Substance use status: uncomplicated Qualified Code(s): F14.20 - Cocaine dependence, uncomplicated (4) Nicotine dependence Current Visit: Yes Status: Chronic (5) Back pain Current Visit: No Status: Chronic Qualifiers: Back pain location: low back pain Chronicity: acute Back pain laterality : midline Sciatica presence: without sciatica Qualified Code(s): M54.5 - Low back pain (6) BPH (benign prostatic hyperplasia) Current Visit: No Status: Chronic Qualifiers: Lower urinary tract symptom presence: unspecified whether lower urinary tract symptoms present Qualified Code(s): N40.0 - Benign prostatic hyperplasia without lower urinary tract symptoms (7) Hypertension Current Visit: No Status: Chronic Qualifiers: Hypertension type: essential hypertension Qualified Code(s): I10 - Essential (primary) hypertension (8) Obese Current Visit: No Status: Chronic Qualifiers: Obesity type: unspecified obesity type Obesity classification: adult class 1 (BMI 30 - 34.9) Serious obesity comorbidity presence: with serious comorbidity - Initial Treatment Plan Initial Treatment Plan: Monitor progress
[2017-08-10 06:41] VITALS: TEMP 98.7
[2017-08-10] MEDS: IBUPROFEN 400 MG TABLET (FP) PO PRN ×2 (06:55→17:43)
--- NOTE | 2017-08-10 07:24 | PN ---
S Progress Note Note: ASKED TO SEE PATIENT FOR SWOLLEN HAND. CLIENT REPORTS WAKING UP SEVERAL HOURS AGO WITH LEFT SWOLLEN HAND, PAIN AND DECREASED ROM DUE TO PAIN. DENIES INJURY, A/A/X3 MILD DISTRESS L HAND NOTED WITH SOME SWELLING TO DORSAL ASPECT. TENDER TO TOUCH DECREASE ROM 2 /2 TO PAIN. SKIN INTACT NO REDNESS, A- L HAND PAIN AND SWELLING P- MOTRIN 400 MG NOW COLD COMPRESS CON'T TO MONITOR FOR WORSENING SYMPTOMS
[2017-08-10] MEDS: TAMSULOSIN HCL 0.4 MG CAP.ER.24H (FP) PO SCH (09:30)
[2017-08-10] MEDS: ENALAPRIL MALEATE 10 MG TABLET (FP) PO SCH (10:05)
[2017-08-10] MEDS: HYDROCHLOROTHIAZIDE 25 MG TABLET (FP) PO SCH (10:05)
[2017-08-10] MEDS: NICOTINE 14 MG/24 HOURS TOPICAL PATCH TD SCH (10:05)
[2017-08-10] MEDS: PRENATAL VITAMINS W/ FOLIC ACID TABLET (FP) PO SCH (10:05)
[2017-08-10] MEDS: amLODIPine BESYLATE 10 MG TABLET (FP) PO SCH (10:05)
[2017-08-10 15:21] VITALS: BP 158/105; PULSE 81
--- NOTE | 2017-08-10 16:31 | PN ---
ETHAN Progress Note Note: left hand swelling with pain, reports at 2AM the pain started and does not recall suffering any injury to the area. Patient reports difficulty moving the wrist. Vital Signs Temperature 98.7 F 08/10/17 06:40 Pulse Rate 81 08/10/17 10:00 Respiratory Rate 18 08/10/17 06:40 Blood Pressure 158/105 08/10/17 10:00 O2 Sat by Pulse Oximetry (%) patient AOX3 s1 s2, no JVD lungs clear through out + left wrist pain, + left wrist edema and impaired mobility Plan: left hand x-ray reviewed shows acute fracture patient to be transported via [facility] to be evaluated at [facility], endorsed to Dr. Guerrier.
[2017-08-10] MEDS: THIAMINE HCL 100 MG TABLET (FP) PO SCH (23:57)
--- NOTE | 2017-08-11 07:51 | PN ---
[facility] Progress Note Note: INFORMED BY DR. CHERY FROM [facility] CLIENT IS NOT ADMITTED STILL IN E.R. AWAITING ORTHO CONSULT [facility]FORE [facility] ENDORSEDTO ROBERT Peralta AND TEJAS Peralta
[2017-08-11] MEDS: TAMSULOSIN HCL 0.4 MG CAP.ER.24H (FP) PO SCH (11:45)
[2017-08-11] MEDS: HYDROCHLOROTHIAZIDE 25 MG TABLET (FP) PO SCH (11:46)
[2017-08-11] MEDS: amLODIPine BESYLATE 10 MG TABLET (FP) PO SCH (11:47)
[2017-08-11] MEDS: NICOTINE 14 MG/24 HOURS TOPICAL PATCH TD SCH (11:47)
[2017-08-11] MEDS: ENALAPRIL MALEATE 10 MG TABLET (FP) PO SCH (11:48)
[2017-08-11] MEDS: PRENATAL VITAMINS W/ FOLIC ACID TABLET (FP) PO SCH (11:48)
== END 2017-08-11 | disposition short-term general hospital (02) | DRG 772 ==
LOC: YASAS 18:34 → Y5N 18:35
PROVIDERS: ADMIT Psychiatry & Neurology Psychiatry; ATTEND Psychiatry & Neurology Psychiatry
PROC: HZ42ZZZ Group Counseling for Substance Abuse Treatment, Cognitive-Behavioral (ICD-10-PCS; principal; 2017-08-09)
DX: F11.20 Opioid dependence, uncomplicated (principal); F10.20 Alcohol dependence, uncomplicated; F14.20 Cocaine dependence, uncomplicated; F17.210 Nicotine dependence, cigarettes, uncomplicated; I10 Essential (primary) hypertension; N40.0 Benign prostatic hyperplasia without lower urinary tract symptoms; M54.5 Low back pain; G47.00 Insomnia, unspecified; E66.9 Obesity, unspecified; Z68.33 Body mass index [BMI] 33.0-33.9, adult; M25.532 Pain in left wrist; M79.642 Pain in left hand; M25.432 Effusion, left wrist
CPT/HCPCS: 73110-TC-LR-FY; 73130-TC-LR-FY

== ENCOUNTER 2017-08-10 18:41 | Observation (INO) | payer OTHER ==
--- NOTE | 2017-08-10 18:59 | PDOC ---
History of Present Illness - General History Source: Patient, Old Records Exam Limitations: No Limitations - History of Present Illness Initial Comments: 08/10/17 19:20 The patient is a 52 year old male with a past medical history of HTN and BPH who presents to the Emergency Department from [address] [place] [address] with left arm swelling and pain today. The patient reports that he woke up today with his symptoms but denies any trauma to his left upper extremity. The patient reports that he had an X-ray done at [address] [place] [address] that showed degenerative changes involving distal radius, navicular bone, first metacarpal and fifth metacarpal; swelling, but no fracture. <John Rodriguez - Last Filed: 08/11/17 00:51> <Sidra Wilkes - Last Filed: 08/11/17 04:00> - General Chief Complaint: Injury Stated Complaint: WRIST PAIN Time Seen by Provider: 08/10/17 18:48 Past History <John Rodriguez - Last Filed: 08/11/17 00:51> - Past Medical History Anemia: No Asthma: No Cancer: No Cardiac Disorders: No CVA: No COPD: No CHF: No Dementia: No Diabetes: No GI Disorders: No Disorders: No HTN: Yes Hypercholesterolemia: No Kidney Stones: No Liver Disease: No Seizures: No Thyroid Disease: No - Surgical History Abdominal Surgery: No Appendectomy: No Cardiac Surgery: No Cholecystectomy: No Lung Surgery: No Neurologic Surgery: No Orthopedic Surgery: No - Reproductive History Testicular Surgery: No - Suicide/Smoking/Psychosocial Hx Smoking History: Current every day smoker Have you smoked in the past 12 months: Yes Number of Cigarettes Smoked Daily: 3 'Breaking Loose' booklet given: 08/04/17 Hx Alcohol Use: Yes Drug/Substance Use Hx: Yes Substance Use Type: Alcohol (Started drinking alcohol at age 16, consumes one quart of ciroc daily. Last drank on 08/04/17), Cocaine (Started using cocaine at age 50, consumes $50 worth daily. Last used on 08/01/17), Heroin (Started using heroin at age 16, consumes 13 bags daily. Last used on08/04/17) Hx Substance Use Treatment: Yes (2 previous inpt detox. First inpt rehab) <Sidra Wilkes - Last Filed: 08/11/17 04:00> - Past Medical History Allergies/Adverse Reactions: Allergies Allergy/AdvReac Type Severity Reaction Status Date / Time No Known Allergies Allergy Verified 08/10/17 19:08 Home Medications: Ambulatory Orders Amlodipine Besylate [Norvasc -] 10 mg PO DAILY #30 tablet 08/08/17 Enalapril Maleate [Vasotec] 20 mg PO DAILY 30 Days #30 tablet 08/08/17 Hydrochlorothiazide [Hctz -] 25 mg PO DAILY #30 tablet 08/08/17 Review of Systems - Review of Systems Able to Perform ROS?: Yes Comments:: 08/10/17 19:20 CONSTITUTIONAL: Absent: fever, no chills, no fatigue EYES: Absent: visual changes ENT: Absent: ear pain, no sore throat CARDIOVASCULAR: Absent: chest pain, no palpitations RESPIRATORY: Absent: cough, no SOB GI: Absent: abdominal pain, no nausea, no vomiting, no constipation, no diarrhea GENITOURINARY: Absent: dysuria, no frequency, no hematuria MUSCULOSKELETAL: (+) Left upper extremity pain SKIN: Absent: rash NEURO: Absent: headache <John Rodriguez - Last Filed: 08/11/17 00:51> *Physical Exam - Vital Signs Last Vital Signs Temp Pulse Resp BP Pulse Ox 98.7 F 105 H 18 128/72 95 08/10/17 18:41 08/10/17 18:41 08/10/17 18:41 08/10/17 18:41 08/10/17 18:41 - Physical Exam Comments: 08/10/17 19:20 GENERAL: (+)Febrile. Well-appearing, well-nourished. No apparent distress. HEENT: Normocephalic, atraumatic. PERRL, EOM intact. CARDIOVASCULAR: Normal S1, S2. Regular rate and rhythm. PULMONARY: Clear to auscultation bilaterally. ABDOMEN: Soft, non-distended, non-tender. EXTREMITIES: (+) Left wrist: swollen, warm and tender. No sign of abcess. Forearm: well healed scar. All other extremities have full range of motion. SKIN: Warm, dry. No rash NEUROLOGICAL: No focal neurological deficits. <John Rodriguez - Last Filed: 08/11/17 00:51> ED Treatment Course - LABORATORY CBC & Chemistry Diagram: 08/10/17 17:10 - RADIOLOGY Radiology Studies Ordered: 08/11/17 00:51 Study Description: CT UPPER EXTREMITY IMPRESSION: Old scaphoid fracture with possible superimposed AVN of the distal pole and mild to moderate degenerative changes of the wrist and hand. No acute fracture <John Rodriguez - Last Filed: 08/11/17 00:51> - LABORATORY CBC & Chemistry Diagram: 08/10/17 17:10 <Sidra Wilkes - Last Filed: 08/11/17 04:00> Medical Decision Making - Medical Decision Making 08/10/17 19:00 52-year-old male brought in by ambulance from [facility] left wrist swelling that was nontraumatic. Patient did have an x-ray obtained that showed chronic degenerative changes but did not find any acute fracture. Detox symptoms now in rehabilitation at [facility]. Last used cocaine and heroin was August 01 and last alcohol was July 31. Past medical history significant for high blood pressure, BPH and low back pain and sent for further evaluation 08/10/17 19:17 His temp at [facility] was 100.4. However, he was given Motrin for pain after that Concern for early cellulitis/arthritis 08/11/17 03:55 Patient's pain. He temp was 98.9, Nitrostat and his WBC count was 10 This is no evidence of cellulitis on that left wrist. 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 It wasn't clear if there is any acute fracture, so a CAT scan was done and that showed that there was no fracture. However, there is a nonunited fracture. Scaphoid. There are multiple cysts and mild sclerosis of the distal scaphoid and superimposed AVN is not excluded. Additional mild to moderate changes at the lunotriquetral articulation and radiocarpel articulation as weel as the first metacarpopharyngeal joint. NO ACUTE FRACTUREidentified NO SOFT TISSUE hematoma IMP OLD SCAPHOID FRACTURE E POSIBLE SUPERIMPOSED AVN OF THE DISTAL POLE AND MOD DEGENERATIVE CHANGES OF THE WRIST PLAN ORTHO CONSULT <Sidra Wilkes - Last Filed: 08/11/17 04:00> *DC/Admit/Observation/Transfer - Attestations Scribe Attestion: 08/10/17 19:21 Documentation prepared by John Rodriguez, acting as claim review medical director for Sidra Wilkes MD. <John Rodriguez - Last Filed: 08/11/17 00:51> - Discharge Dispostion Decision to Admit order: Yes <Sidra Wilkes - Last Filed: 08/11/17 04:00> Diagnosis at time of Disposition: Swelling of joint, wrist, left Alcohol dependence Qualifiers: Substance use status: uncomplicated Qualified Code(s): F10.20 - Alcohol dependence, uncomplicated Opioid dependence Qualifiers: Substance use status: uncomplicated Qualified Code(s): F11.20 - Opioid dependence, uncomplicated
[2017-08-10 19:08] VITALS: BMI 34.0
[2017-08-10 19:36] LABS: BASO % 0.9 % (0-2.0); EOS % 1.3 % (0-4.5); HEMATOCRIT 40.3 % (35.4-49); HEMOGLOBIN 13.8 GM/dL (11.7-16.9); LYMPH % 20.8 % (8-40); MCH 30.1 pg (25.7-33.7); MCHC 34.2 g/dl (32.0-35.9); MEAN CELL VOLUME 88.2 fl (80-96); MEAN PLT VOLUME 9.1 fl (7.5-11.1); MONO % 13.2 % (3.8-10.2); NEUT % 63.8 % (42.8-82.8); RBC 4.57 M/mm3 (4.00-5.60); RDW 13.5 % (11.9-15.9); WHITE BLOOD COUNT 10.1 K/mm3 (4.0-10.0)
[2017-08-10] MEDS ORDERED: PIPERACILLIN/TAZOB 3.375 GM 3.375 GM in DEXTROSE 5%-WATER - 50 ML IVPB ONE (19:52)
[2017-08-10] MEDS ORDERED: PIPERACILLIN/TAZOB 3.375 GM 3.375 GM/50 ML BAG IVPB ONE (20:33)
[2017-08-10 20:58] LABS: PLATELET COUNT 228 K/MM3 (134-434)
[2017-08-10 21:02] LABS: PLATELET ESTIMATE ADEQUATE
[2017-08-10] MEDS ORDERED: KETOROLAC TROMETHAMINE 30 MG/1 ML VIAL IVPUSH ONE (21:54)
[2017-08-11] MEDS ORDERED: KETOROLAC TROMETHAMINE 30 MG/1 ML VIAL ONE (00:17)
--- NOTE | 2017-08-11 06:11 | PDOC ---
*Physical Exam - Vital Signs Last Vital Signs Temp Pulse Resp BP Pulse Ox 98.2 F 88 18 133/78 98 08/11/17 05:59 08/11/17 05:59 08/11/17 05:59 08/11/17 05:59 08/11/17 05:59 ED Treatment Course - LABORATORY CBC & Chemistry Diagram: 08/10/17 17:10 - ADDITIONAL ORDERS Additional order review: 08/10/17 17:10 RBC 4.57 MCV 88.2 MCHC 34.2 RDW 13.5 MPV 9.1 D Neutrophils % 63.8 Lymphocytes % 20.8 Monocytes % 13.2 H Eosinophils % 1.3 Basophils % 0.9 - Medications Given in the ED: ED Medications Discontinued Medications Generic Name Dose Route Start Last Admin Trade Name Freq PRN Reason Stop Dose Admin Piperacillin Sod/Tazobactam 50 mls @ 100 mls/hr 08/10/17 19:52 08/10/17 20:17 Sod 3.375 gm/ Dextrose IVPB 08/10/17 20:21 100 mls/hr ONCE ONE Administration Protocol Ketorolac Tromethamine 30 mg 08/10/17 21:54 08/10/17 23:32 Toradol Injection - IVPUSH 08/10/17 21:55 30 mg ONCE ONE Administration Medical Decision Making - Medical Decision Making 08/11/17 06:09 Pt still here because [facility] would like the patient to get an Ortho consult as he is still in the detox program. Pending phone call from Ortho. *DC/Admit/Observation/Transfer Diagnosis at time of Disposition: Swelling of joint, wrist, left Alcohol dependence Qualifiers: Substance use status: uncomplicated Qualified Code(s): F10.20 - Alcohol dependence, uncomplicated Opioid dependence Qualifiers: Substance use status: uncomplicated Qualified Code(s): F11.20 - Opioid dependence, uncomplicated - Referrals - Patient Instructions - Post Discharge Activity
--- NOTE | 2017-08-11 07:57 | PDOC ---
*Physical Exam - Vital Signs Last Vital Signs Temp Pulse Resp BP Pulse Ox 98.2 F 88 18 133/78 98 08/11/17 05:59 08/11/17 05:59 08/11/17 05:59 08/11/17 05:59 08/11/17 05:59 - Physical Exam Comments: 08/11/17 08:19 "GENERAL: Awake, alert, and fully oriented, in no acute distress. HEAD: No signs of trauma EYES: PERRLA, EOMI, sclera anicteric, conjunctiva clear ENT: Auricles normal inspection, hearing grossly normal, nares patent, oropharynx clear without exudates. Moist mucosa NECK: Nontender, no stepoffs, Normal ROM, supple, no lymphadenopathy, JVD, or masses LUNGS: Breath sounds equal, clear to auscultation bilaterally. No wheezes, and no crackles HEART: Regular rate and rhythm, normal S1 and S2, no murmurs, rubs or gallops ABDOMEN: Soft, nontender, normoactive bowel sounds. No guarding, no rebound. No masses EXTREMITIES: + L wrist with warmth and swelling over dorsal aspect NEUROLOGICAL: Cranial nerves II through XII intact. 5/5 strength and sensation in all extremities, Normal speech, normal gait, normal cerebellar function SKIN: Warm, Dry, normal turgor, no rashes or lesions noted. " ED Treatment Course - LABORATORY CBC & Chemistry Diagram: 08/10/17 17:10 08/11/17 07:59 - ADDITIONAL ORDERS Additional order review: 08/10/17 17:10 RBC 4.57 MCV 88.2 MCHC 34.2 RDW 13.5 MPV 9.1 D Neutrophils % 63.8 Lymphocytes % 20.8 Monocytes % 13.2 H Eosinophils % 1.3 Basophils % 0.9 - Medications Given in the ED: ED Medications Discontinued Medications Generic Name Dose Route Start Last Admin Trade Name Freq PRN Reason Stop Dose Admin Piperacillin Sod/Tazobactam 50 mls @ 100 mls/hr 08/10/17 19:52 08/10/17 20:17 Sod 3.375 gm/ Dextrose IVPB 08/10/17 20:21 100 mls/hr ONCE ONE Administration Protocol Ketorolac Tromethamine 30 mg 08/10/17 21:54 08/10/17 23:32 Toradol Injection - IVPUSH 08/10/17 21:55 30 mg ONCE ONE Administration Medical Decision Making - Medical Decision Making 08/11/17 07:56 Sign out taken from Dr. Thomas at 7AM. 52 M with 2 days of pain and swelling over L wrist. Found to have old scaphoid fx with ?AVN. Awaiting ortho callback. 08/11/17 08:20 Upon my re-evaluation, pt with significant warmth and swelling over dorsal aspect of L wrist, concerning for soft tissue infection. Pt with significant pain with flexion/extension of wrist, likely 2/2 swelling. ROM is preserved, making septic arthritis less likely at this time. However, pt will need close monitoring and repeat exam, as he is high risk for this given h/ o IV drug use. Will admit for IV abx and eval by hand specialist. 08/11/17 08:53 Pt admitted to hospitalist Discussed case with Dr. Pal, who will evaluate pt. *DC/Admit/Observation/Transfer Diagnosis at time of Disposition: Swelling of joint, wrist, left Alcohol dependence Qualifiers: Substance use status: uncomplicated Qualified Code(s): F10.20 - Alcohol dependence, uncomplicated Opioid dependence Qualifiers: Substance use status: uncomplicated Qualified Code(s): F11.20 - Opioid dependence, uncomplicated - Discharge Dispostion Decision to Admit order: Yes - Referrals - Patient Instructions - Post Discharge Activity - Attestations Physician Attestion: 08/11/17 08:56 I, Dr. Don Snyder MD, attest that this document has been prepared under my direction and personally reviewed by me in its entirety. I further attest, that it accurately reflects all work, treatment, procedures and medical decision -making performed by me.
[2017-08-11] MEDS ORDERED: VANCOMYCIN 1,000 MG in DEXTROSE 5%-WATER - 250 ML IVPB ONE (08:24)
[2017-08-11 08:42] LABS: ALBUMIN 3.3 g/dl (3.4-5.0); ALK PHOS 111 U/L (45-117); ANION GAP 8 (8-16); BILIRUBIN,TOTAL 0.8 mg/dL (0.2-1.0); BLOOD UREA NITROGEN 19 mg/dL (7-18); CALCIUM 8.8 mg/dL (8.5-10.1); CHLORIDE 102 mmol/L (98-107); CO2 27 mmol/L (21-32); GLUCOSE,RANDOM 120 mg/dL (74-106); POTASSIUM 4.2 mmol/L (3.5-5.1); SGOT/AST 17 U/L (15-37); SGPT/ALT 33 U/L (12-78); SODIUM 137 mmol/L (136-145); TOT PROT 7.5 g/dl (6.4-8.2)
--- NOTE | 2017-08-11 09:34 | HP ---
CHIEF COMPLAINT: L wrist pain PCP: Eduardo at [facility] HISTORY OF PRESENT ILLNESS: 52 y/o M w/PMH of HTN, BPH, cocaine use, heroin dependance (via sniffing), nicotine dependance, alcohol dependence presents from [facility] for L wrist pain. Pt was in rehab after finishing heroin detox at [facility] and noticed his L wrist in pain with swelling and warmth at approximately 6 am yesterday. Pain is localized to the area with no radiation. He has decreased ROM due to pain and cannot make a fist due to pain. Denies any tingling or numbness in L hand. He also states he's been feeling feverish since the onset of the pain and swelling at 6am yesterday. The day prior his hand was fine and he woke up at approximately 2am to urinate earlier that night and noted that his hand was without issue then too. He denies any trauma to the area, scratching the area, any cuts. He denies ever using IV drugs. He denies CP, SOB, abd pain, diarrhea, constipation, N/V, blood in stool, dysuria, blood in urine, calf pain, sick contacts, recent travel. Last alcoholic drink, heroin use, cocaine use was August 01 according to pt. L hand XR at [facility] showed: degenerative changes w/possible old post- traumatic findings in distal radius, navicular bone, 1st and 4th metacarpal. No fractures seen. ER course was notable for: (1) vanc, zosyn,toradol (2) CT hand (3) Recent Travel: denies PAST MEDICAL HISTORY: HTN, BPH, cocaine use, heroin dependance (via sniffing), nicotine dependance, alcohol dependence PAST SURGICAL HISTORY: denies any surgical hx Social History: Smoking: current smoker - 3 cig/day. Has been cutting back and ready to quit. Alcohol: 1/4 of a bottle of vodka/whiskey per day prior to August 01, 2017. Drugs: cocaine use occasionally. Heroin 13 bags / day via sniffing. Last use for both was August 01, 2017. Family History: denies any medical hx in family Allergies No Known Allergies Allergy (Verified 08/10/17 19:08) HOME MEDICATIONS: Home Medications Medication Instructions Recorded Amlodipine Besylate [Norvasc -] 10 mg PO DAILY #30 tablet 08/08/17 Enalapril Maleate [Vasotec] 20 mg PO DAILY 30 Days #30 tablet 08/08/17 Hydrochlorothiazide [Hctz -] 25 mg PO DAILY #30 tablet 08/08/17 Flomax 0.4 mg po daily REVIEW OF SYSTEMS CONSTITUTIONAL: +fever Absent: chills, diaphoresis, generalized weakness HEENT: +rhinorrhea (chronic) CARDIOVASCULAR: Absent: chest pain, lightheadedness, peripheral edema RESPIRATORY: Absent: cough, shortness of breath GASTROINTESTINAL: Absent: abdominal pain, nausea, vomiting, diarrhea, constipation, melena GENITOURINARY: Absent: dysuria, hematuria MUSCULOSKELETAL: +L wrist pain and swelling NEUROLOGIC: Absent: headache, mental status changes PHYSICAL EXAMINATION Vital Signs - 24 hr 08/10/17 08/11/17 08/11/17 18:41 00:30 02:16 Temperature 98.7 F 98.2 F 98.2 F Pulse Rate 105 H Pulse Rate [ 74 92 H Right] Respiratory 18 18 19 Rate Blood Pressure 128/72 Blood Pressure 148/93 154/102 [Right Arm] O2 Sat by Pulse 95 97 98 Oximetry (%) 08/11/17 08/11/17 05:59 08:00 Temperature 98.2 F 98.3 F Pulse Rate Pulse Rate [ 88 80 Right] Respiratory 18 16 Rate Blood Pressure Blood Pressure 133/78 142/105 [Right Arm] O2 Sat by Pulse 98 98 Oximetry (%) GENERAL: Awake, alert, and fully oriented, in no acute distress. HEAD: Normal with no signs of trauma. EYES: extraocular movements intact, sclera anicteric EARS, NOSE, THROAT: Ears normal, nares patent NECK: Normal range of motion, supple LUNGS: Breath sounds equal, clear to auscultation bilaterally. No wheezes, and no crackles. No accessory muscle use. HEART: Regular rate and rhythm, normal S1 and S2 without murmur ABDOMEN: Soft, obese nontender, not distended, normoactive bowel sounds, no guarding, no rebound MUSCULOSKELETAL: No CVA tenderness. +R HAND: benidiction sign (s/p cut from window many years ago). +L HAND: Ulnar aspect TTP, swollen, warm to touch, cannot dorsiflex at wrist, limited ulnar flexion. 4/5 Strength of LUE. Sensation intact in L hand. LOWER EXTREMITIES: warm, well-perfused. No calf tenderness. No peripheral edema. NEUROLOGICAL: Cranial nerves II-XII grossly intact. Normal speech. Normal gait. PSYCHIATRIC: Cooperative. Good eye contact. Appropriate mood and affect. SKIN: Warm, dry Laboratory Results - last 24 hr 08/10/17 08/10/17 08/11/17 17:10 17:10 07:59 WBC 10.1 H RBC 4.57 Hgb 13.8 Hct 40.3 MCV 88.2 MCH 30.1 MCHC 34.2 RDW 13.5 Plt Count 228 MPV 9.1 D Absolute Neuts (auto) 6.4 Neutrophils % 63.8 Lymphocytes % 20.8 Monocytes % 13.2 H Eosinophils % 1.3 Basophils % 0.9 Nucleated RBC % 0 Platelet Estimate Adequate Platelet Comment No clumping noted ESR Cancelled Sodium 137 Potassium 4.2 Chloride 102 Carbon Dioxide 27 Anion Gap 8 BUN 19 H Creatinine 1.0 Creat Clearance w eGFR > 60 Random Glucose 120 H D Calcium 8.8 Total Bilirubin 0.8 AST 17 D ALT 33 Alkaline Phosphatase 111 D Total Protein 7.5 Albumin 3.3 L Imaging: CT L hand: Prelim read: Old non-united fracture of scaphoid with possible superimposed avascular necrosis. ASSESSMENT/PLAN: 52 y/o M w/PMH of HTN, BPH, cocaine use, heroin dependance (via sniffing), nicotine dependance, alcohol dependence presents from [facility] for L wrist pain. Concern for cellulitis. -L wrist pain secondary to cellulitis vs scaphoid fracture w/AVN vs less likely septic joint (pt reports never using IV drugs) -Vanc / Zosyn given in ER; will hold off on abx at this time but will place ID consult for further recommendations. -Hand surgery consult - Dr. Pal -Tylenol for fevers or pain -f/u official CT hand read -HTN -c/w amlodipine 10 mg, enalapril 20 mg, hctz 25 mg -BPH -c/w flomax 0.4 mg po qd -Nicotine dependance -pt does not want patch. -smoking cessation counseling -Hx of heroin dependance and cocaine use and alcohol dependence -At [facility], completed detox for heroin. -No signs of alcohol withdrawal at this time -thiamine 100 mg po qhs -DVT ppx -SCDs, EAM -FEN -No fluids -monitor electrolytes -Regular diet -Dispo: Obs Visit type - Emergency Visit Emergency Visit: Yes ED Registration Date: 08/11/17 Care time: The patient presented to the Emergency Department on the above date and was hospitalized for further evaluation of their emergent condition. - New Patient This patient is new to me today: Yes Date on this admission: 08/11/17 - Critical Care Critical Care patient: No Hospitalist Screening - Colonoscopy Questionnaire Colonoscopy Questionnaire: Colonoscopy Questionnaire - Patient: 50 - 75 years old and never had a screening colonoscopy: Unknown History of colon or rectal polyps, or CA: Unknown History of IBD, Crohn's disease or UC: Unknown History of abdominal radiation therapy as a child: Unknown - Relative: 1 with colon or rectal CA, or polyps at age 60 or younger: Unknown Colon or rectal CA diagnosed at age 45 or younger: Unknown Multiple relatives with colon or rectal CA: Unknown - Outcome: Screening Result: Negative Screen
[2017-08-11] MEDS ORDERED: VANCOMYCIN 1 GRAM (PRE-DOCKED) 1,000 MG/250 ML BAG IVPB ONE (09:36)
[2017-08-11] MEDS ORDERED: SODIUM CHLORIDE NASAL SPRAY 44 ML BOTTLE NS PRN (10:02)
[2017-08-11] MEDS ORDERED: ACETAMINOPHEN 325 MG TABLET (FP) PO PRN (10:03)
[2017-08-11] MEDS ORDERED: PATIENT'S OWN MEDICATION (NON-FORMULARY) (Enalapril Maleate [Vasotec] 20 MG) PO SCH (10:15)
[2017-08-11] MEDS ORDERED: ENALAPRIL MALEATE 5 MG TABLET (FP) ONE (10:47)
[2017-08-11] MEDS ORDERED: amLODIPine BESYLATE 5 MG TABLET (FP) ONE (10:47)
[2017-08-11] MEDS: HYDROCHLOROTHIAZIDE 25 MG TABLET (FP) PO SCH (10:59)
[2017-08-11] MEDS: amLODIPine BESYLATE 10 MG TABLET (FP) PO SCH (10:59)
[2017-08-11] MEDS ORDERED: TRIAMCINOLONE ACET 40MG/1ML VIAL IM ONE (11:10)
--- NOTE | 2017-08-11 11:15 | PN ---
Teaching Attending Note Name of Resident: Freddie Jauregui ATTENDING PHYSICIAN STATEMENT I saw and evaluated the patient. I reviewed the resident's note and discussed the case with the resident. I agree with the resident's findings and plan as documented. SUBJECTIVE: This is a 52 year old man with a history of HTN, BPH, cocaine use, heroin, nicotine, and alcohol dependence who was sent to the ED from [facility] for left wrist pain. He was admitted at [facility] 08/04 for heroin detox which he completed. On 08/09 he started rehab. Yesterday morning he developed pain and swelling in his left wrist. He felt like he had fevers. He denies IV drug use. OBJECTIVE: Vital Signs Period Temp Pulse Resp BP Sys/Pérez Pulse Ox Last 24 Hr 98.2 F-98.7 F 74-105 16-19 128-154/72-105 95-98 HEART: S1S2, RRR LUNGS: Clear ABDOMEN: Obese, soft, non-tender, non-distended, normal BS EXTREMITIES: Left wrist and hand are swollen. Left wrist is warm and erythematous. Laboratory Tests 08/10/17 08/10/17 08/11/17 17:10 17:10 07:59 WBC 10.1 H RBC 4.57 Hgb 13.8 Hct 40.3 MCV 88.2 MCH 30.1 MCHC 34.2 RDW 13.5 Plt Count 228 MPV 9.1 D Absolute Neuts (auto) 6.4 Neutrophils % 63.8 Lymphocytes % 20.8 Monocytes % 13.2 H Eosinophils % 1.3 Basophils % 0.9 Nucleated RBC % 0 Platelet Estimate Adequate Platelet Comment No clumping noted ESR Cancelled Sodium 137 Potassium 4.2 Chloride 102 Carbon Dioxide 27 Anion Gap 8 BUN 19 H Creatinine 1.0 Creat Clearance w eGFR > 60 Random Glucose 120 H D Calcium 8.8 Total Bilirubin 0.8 AST 17 D ALT 33 Alkaline Phosphatase 111 D Total Protein 7.5 Albumin 3.3 L Home Medications Medication Instructions Recorded Amlodipine Besylate [Norvasc -] 10 mg PO DAILY #30 tablet 08/08/17 Enalapril Maleate [Vasotec] 20 mg PO DAILY 30 Days #30 tablet 08/08/17 Hydrochlorothiazide [Hctz -] 25 mg PO DAILY #30 tablet 08/08/17 Tamsulosin HCl [Flomax] 0.4 mg PO DAILY 08/11/17 ASSESSMENT AND PLAN: This is a 52 year old man with a history of HTN, BPH, cocaine use, heroin, nicotine, and alcohol dependence who was presented to the ED from [facility] with pain and swelling of his left wrist. 1. Possible cellulitis of left wrist - Given Zosyn, Vancomycin in ED - Afebrile, WBC 10.1 - Hand surgery, ID consults 2. Chronic fracture of left navicular bone 3. HTN - Continue Norvasc, Vasotec, HCTZ 4. BPH - Continue Flomax 5. Polysubstance abuse - Completed opioid detox at [facility] 6. Nicotine dependence - Patient refusing nicotine replacement 7. Obesity with BMI 34.0
[2017-08-11] MEDS ORDERED: LIDOCAINE HCL 1%, 10 MG/ML (20ML VIAL) ONE (11:17)
--- NOTE | 2017-08-11 11:22 | CONSULT ---
Consult Consult Specialty:: hand and microsurgery Reason for Consultation:: avascular necrosis of scaphoid left wrist - History of Present Illness Chief Complaint: left wrist pain History of Present Illness: 52yo RHD male PMH polysubstance, HTN and BPH who presents to the Emergency Department from to [facility] with left arm swelling and pain today. The patient reports that he woke up today with his symptoms but denies any trauma to his left upper extremity. The patient reports that he had an X-ray done at [address] [place] [address] that showed degenerative changes involving distal radius, navicular bone, first metacarpal and fifth metacarpal; swelling, but no fracture. we were asked to assess. - History Source History Provided By: Patient, Medical Record Limitations to Obtaining History: No Limitations - Past Medical History Cardio/Vascular: Yes: HTN Renal/: Yes: BPH - Alcohol/Substance Use Hx Alcohol Use: Yes History of Substance Use: reports: Cocaine, Heroin, Marijuana, Prescription - Smoking History Smoking history: Current every day smoker Have you smoked in the past 12 months: Yes Aproximately how many cigarettes per day: 3 - Social History Place of : [facility] (from [place], [place]) History of Recent Travel: No Home Medications - Allergies Allergies/Adverse Reactions: Allergies Allergy/AdvReac Type Severity Reaction Status Date / Time No Known Allergies Allergy Verified 08/10/17 19:08 - Home Medications Home Medications: Ambulatory Orders Amlodipine Besylate [Norvasc -] 10 mg PO DAILY #30 tablet 08/08/17 Enalapril Maleate [Vasotec] 20 mg PO DAILY 30 Days #30 tablet 08/08/17 Hydrochlorothiazide [Hctz -] 25 mg PO DAILY #30 tablet 08/08/17 Tamsulosin HCl [Flomax] 0.4 mg PO DAILY 08/11/17 Family Disease History - Family Disease History Family Disease History: Other: Father (, unknown ), Mother (, unknown ) Review of Systems - Review of Systems Constitutional: denies: Chills, Fever Eyes: denies: Blurred Vision, Recent Change in Vision HENT: denies: Difficult Swallowing, Throat Pain Cardiovascular: denies: Chest Pain, Palpitations Respiratory: denies: Cough, SOB Gastrointestinal: denies: Abdominal Pain, Constipation Genitourinary: denies: Discharge, Dysuria Breasts: reports: No Symptoms Reported. denies: Pain Musculoskeletal: denies: Muscle Pain, Muscle Weakness Integumentary: denies: Eczema, Erythema, Lesions Neurological: denies: Seizure, Syncope, Tremors Endocrine: denies: Unexplained Weight Gain, Unexplained Weight Loss Hematology/Lymphatic: denies: Easily Bruised, Excessive Bleeding Psychiatric: denies: Anxiety, Depression Physical Exam Vital Signs: Vital Signs Temperature 98.3 F 08/11/17 08:00 Pulse Rate 80 08/11/17 08:00 Respiratory Rate 16 08/11/17 08:00 Blood Pressure 142/105 08/11/17 08:00 O2 Sat by Pulse Oximetry (%) 98 08/11/17 08:00 Constitutional: Yes: Well Nourished, No Distress, Calm, Obese Eyes: Yes: Conjunctiva Clear, EOM Intact HENT: Yes: Atraumatic, Normocephalic Neck: Yes: Supple, Trachea Midline Cardiovascular: Yes: Regular Rate and Rhythm, S1, S2 Respiratory: Yes: Regular, CTA Bilaterally Gastrointestinal: Yes: Normal Bowel Sounds, Soft, Abdomen, Obese. No: Tenderness ...Rectal Exam: Yes: Deferred Renal/: No: CVA Tenderness - Left, CVA Tenderness - Right Breast(s): Yes: Gynecomastia. No: Skin Changes Extremities: Yes: Other (radial sided wrist pain, +radial stress. maximum tenderness over scaphoid). No: Cool, Cyanosis Edema: No Peripheral Pulses WNL: Yes Integumentary: No: Jaundice, Rash Labs: CBC, BMP 08/10/17 17:10 08/11/17 07:59 Problem List - Problems (1) Avascular necrosis of scaphoid Assessment/Plan: 52yo RHD male with MMP and left wrist priser's disease of left wrist, uncertain trauma amd not a septic joint Kenalog-40 + lidocaine 1% injection Thumb spica splint applied Left arm elevation on a pillow Discharge planning for f/u for elective wrist fusion Thank you for the opportunity to participate in the care of this patient. Code(s): M87.039 - IDIOPATHIC ASEPTIC NECROSIS OF UNSPECIFIED CARPUS (2) Alcohol dependence Code(s): F10.20 - ALCOHOL DEPENDENCE, UNCOMPLICATED Qualifiers: Substance use status: uncomplicated Qualified Code(s): F10.20 - Alcohol dependence, uncomplicated (3) Opioid dependence Code(s): F11.20 - OPIOID DEPENDENCE, UNCOMPLICATED Qualifiers: Substance use status: uncomplicated Qualified Code(s): F11.20 - Opioid dependence, uncomplicated (4) Cocaine dependence Code(s): F14.20 - COCAINE DEPENDENCE, UNCOMPLICATED Qualifiers: Substance use status: uncomplicated Qualified Code(s): F14.20 - Cocaine dependence, uncomplicated (5) BPH (benign prostatic hyperplasia) Code(s): N40.0 - BENIGN PROSTATIC HYPERPLASIA WITHOUT LOWER URINRY TRACT SYMP Qualifiers: Lower urinary tract symptom presence: unspecified whether lower urinary tract symptoms present Qualified Code(s): N40.0 - Benign prostatic hyperplasia without lower urinary tract symptoms (6) Hypertension Code(s): I10 - ESSENTIAL (PRIMARY) HYPERTENSION Qualifiers: Hypertension type: essential hypertension Qualified Code(s): I10 - Essential (primary) hypertension (7) Obese Code(s): E66.9 - OBESITY, UNSPECIFIED Qualifiers: Obesity type: unspecified obesity type Obesity classification: adult class 1 (BMI 30 - 34.9) Serious obesity comorbidity presence: with serious comorbidity
[2017-08-11] MEDS ORDERED: ENALAPRIL MALEATE 10 MG TABLET (FP) PO SCH (12:11)
--- NOTE | 2017-08-11 14:18 | CON.ID ---
Consult Consult Specialty:: infectious diseases Referred by:: Reason for Consultation:: hand fracture and cellulitis of the hand - History of Present Illness Chief Complaint: pain and swelling of the hand History of Present Illness: 52 y/o M w/PMH of HTN, BPH, drug abuse via sniffing,without iv of cocaine and, heroin dependance , nicotine dependance, alcohol dependence presents from [facility] for L wrist pain. patient was in rehab and according tot he patient he noticed sudden swelling of thr left wrist,patient does not know how the swelling occurred and was associated with pain. currently patient was seen by hand and has dressing on the wrist/hand and unable to see the wrist per se he does mention that it was red and swollen workup did not reveal any fractures patient denies any fever nausea and vomiting - History Source History Provided By: Patient Limitations to Obtaining History: No Limitations - Alcohol/Substance Use Hx Alcohol Use: Yes - Smoking History Smoking history: Current every day smoker Have you smoked in the past 12 months: Yes Aproximately how many cigarettes per day: 3 Home Medications - Allergies Allergies/Adverse Reactions: Allergies Allergy/AdvReac Type Severity Reaction Status Date / Time No Known Allergies Allergy Verified 08/10/17 19:08 - Home Medications Home Medications: Ambulatory Orders Amlodipine Besylate [Norvasc -] 10 mg PO DAILY #30 tablet 08/08/17 Enalapril Maleate [Vasotec] 20 mg PO DAILY 30 Days #30 tablet 08/08/17 Hydrochlorothiazide [Hctz -] 25 mg PO DAILY #30 tablet 08/08/17 Tamsulosin HCl [Flomax] 0.4 mg PO DAILY 08/11/17 Family Disease History - Family Disease History Family Disease History: Other: Father (, unknown ), Mother (, unknown ) Review of Systems - Review of Systems Constitutional: reports: No Symptoms Eyes: reports: No Symptoms HENT: reports: No Symptoms Neck: reports: No Symptoms Cardiovascular: reports: No Symptoms Respiratory: reports: No Symptoms Gastrointestinal: reports: No Symptoms Genitourinary: reports: No Symptoms Musculoskeletal: reports: Joint Pain, Joint Swelling Integumentary: reports: Change in Color, Erythema Neurological: reports: No Symptoms Endocrine: reports: No Symptoms Hematology/Lymphatic: reports: No Symptoms Psychiatric: reports: No Symptoms Physical Exam Vital Signs: Vital Signs Temperature 98.3 F 08/11/17 08:00 Pulse Rate 80 08/11/17 08:00 Respiratory Rate 16 08/11/17 08:00 Blood Pressure 142/105 08/11/17 08:00 O2 Sat by Pulse Oximetry (%) 98 08/11/17 08:00 Constitutional: Yes: Well Nourished, Calm, Obese Eyes: Yes: Conjunctiva Clear HENT: Yes: Atraumatic Neck: Yes: Supple, Trachea Midline Cardiovascular: Yes: Regular Rate and Rhythm Respiratory: Yes: Regular, CTA Bilaterally Gastrointestinal: Yes: Normal Bowel Sounds, Soft Musculoskeletal: Yes: WNL Extremities: Yes: Other Wound/Incision: Yes: Dressing Dry and Intact Neurological: Yes: Alert, Oriented Psychiatric: Yes: Alert, Oriented Labs: CBC, BMP 08/10/17 17:10 08/11/17 07:59 Imaging - Results Cat Scan: Report Reviewed, Image Reviewed Assessment/Plan Problem List - Problems (1) Avascular necrosis of scaphoid Code(s): M87.039 - IDIOPATHIC ASEPTIC NECROSIS OF UNSPECIFIED CARPUS (2) Alcohol dependence Code(s): F10.20 - ALCOHOL DEPENDENCE, UNCOMPLICATED Qualifiers: Substance use status: uncomplicated Qualified Code(s): F10.20 - Alcohol dependence, uncomplicated (3) Opioid dependence Code(s): F11.20 - OPIOID DEPENDENCE, UNCOMPLICATED Qualifiers: Substance use status: uncomplicated Qualified Code(s): F11.20 - Opioid dependence, uncomplicated (4) Cocaine dependence Code(s): F14.20 - COCAINE DEPENDENCE, UNCOMPLICATED Qualifiers: Substance use status: uncomplicated Qualified Code(s): F14.20 - Cocaine dependence, uncomplicated (5) BPH (benign prostatic hyperplasia) Code(s): N40.0 - BENIGN PROSTATIC HYPERPLASIA WITHOUT LOWER URINRY TRACT SYMP Qualifiers: Lower urinary tract symptom presence: unspecified whether lower urinary tract symptoms present Qualified Code(s): N40.0 - Benign prostatic hyperplasia without lower urinary tract symptoms (6) Hypertension Code(s): I10 - ESSENTIAL (PRIMARY) HYPERTENSION Qualifiers: Hypertension type: essential hypertension Qualified Code(s): I10 - Essential (primary) hypertension (7) Obese Code(s): E66.9 - OBESITY, UNSPECIFIED Qualifiers: Obesity type: unspecified obesity type Obesity classification: adult class 1 (BMI 30 - 34.9) Serious obesity comorbidity presence: with serious comorbidity plan will start patient on unasyn will discuss with the primary team i have not seen the hand so at the moment i am not able to decide further mgmt will d/w surgery and then final recommendation
[2017-08-11] MEDS: PRENATAL VITAMINS W/ FOLIC ACID TABLET (FP) PO SCH (15:21)
[2017-08-11] MEDS: AMPICILLIN NA/SULBACTAM NA 3 GM in SODIUM CHLORIDE 100 ML IVPB SCH (18:11)
[2017-08-11] MEDS ORDERED: PT OWN MED DRAWER 7, Y5N ONE (19:16)
[2017-08-11] MEDS ORDERED: THIAMINE HCL 100 MG TABLET (FP) PO SCH (22:00)
[2017-08-12] MEDS: AMPICILLIN NA/SULBACTAM NA 3 GM in SODIUM CHLORIDE 100 ML IVPB SCH ×2 (01:36→09:59)
--- NOTE | 2017-08-12 09:33 | PN ---
Progress Note, Physician Chief Complaint: left wrist pain History of Present Illness: 52yo RHD male PMH polysubstance, HTN and BPH who presents to the Emergency Department from to [facility] with left arm swelling and pain today. - Current Medication List Current Medications: Active Medications Acetaminophen (Tylenol -) 650 mg PO Q6H PRN PRN Reason: PAIN OR FEVER Amlodipine Besylate (Norvasc -) 10 mg PO DAILY [facility] Last Admin: 08/11/17 10:59 Dose: 10 mg Enalapril Maleate (Vasotec -) 20 mg PO DAILY [facility] Hydrochlorothiazide (Hctz -) 25 mg PO DAILY [facility] Last Admin: 08/11/17 10:59 Dose: 25 mg Ampicillin Sodium/Sulbactam (Sodium 3 gm/ Sodium Chloride) 100 mls @ 200 mls/ hr IVPB Q8H-IV [facility] Last Admin: 08/12/17 01:36 Dose: 200 mls/hr Multivit/Folic Acid/Iron ( Vitamins (Sjr) -) 1 tab PO DAILY [facility] Last Admin: 08/11/17 15:21 Dose: 1 tab Sodium Chloride ([place] Nasal Venus -) 2 spray NS BID PRN PRN Reason: NASAL CONGESTION Thiamine HCl (Vitamin B1 -) 100 mg PO HS [facility] Last Admin: 08/11/17 21:26 Dose: 100 mg - Objective Vital Signs: Vital Signs Temperature 97.5 F L 08/12/17 06:21 Pulse Rate 85 08/12/17 06:21 Respiratory Rate 18 08/12/17 06:21 Blood Pressure 136/90 08/12/17 06:21 O2 Sat by Pulse Oximetry (%) 96 08/11/17 18:49 Vital Signs Period Temp Pulse Resp BP Sys/Pérez Pulse Ox Last 24 Hr 97.5 F-98.4 F 76-85 18-20 136-146/68-98 96 Constitutional: Yes: No Distress, Calm, Obese Eyes: Yes: Conjunctiva Clear, EOM Intact HENT: Yes: Atraumatic, Normocephalic Neck: Yes: Supple, Trachea Midline Cardiovascular: Yes: Regular Rate and Rhythm, S1, S2 Labs: CBC, BMP 08/10/17 17:10 08/11/17 07:59 Problem List - Problems (1) Avascular necrosis of scaphoid Assessment/Plan: 52yo RHD male with MMP and left wrist priser's disease of left wrist, uncertain trauma amd not a septic joint Kenalog-40 + lidocaine 1% injection Thumb spica splint applied Left arm elevation on a pillow Discharge planning for f/u for elective wrist fusion Thank you for the opportunity to participate in the care of this patient. Code(s): M87.039 - IDIOPATHIC ASEPTIC NECROSIS OF UNSPECIFIED CARPUS (2) Alcohol dependence Code(s): F10.20 - ALCOHOL DEPENDENCE, UNCOMPLICATED Qualifiers: Substance use status: uncomplicated Qualified Code(s): F10.20 - Alcohol dependence, uncomplicated (3) Opioid dependence Code(s): F11.20 - OPIOID DEPENDENCE, UNCOMPLICATED Qualifiers: Substance use status: uncomplicated Qualified Code(s): F11.20 - Opioid dependence, uncomplicated (4) Cocaine dependence Code(s): F14.20 - COCAINE DEPENDENCE, UNCOMPLICATED Qualifiers: Substance use status: uncomplicated Qualified Code(s): F14.20 - Cocaine dependence, uncomplicated (5) BPH (benign prostatic hyperplasia) Code(s): N40.0 - BENIGN PROSTATIC HYPERPLASIA WITHOUT LOWER URINRY TRACT SYMP Qualifiers: Lower urinary tract symptom presence: unspecified whether lower urinary tract symptoms present Qualified Code(s): N40.0 - Benign prostatic hyperplasia without lower urinary tract symptoms (6) Hypertension Code(s): I10 - ESSENTIAL (PRIMARY) HYPERTENSION Qualifiers: Hypertension type: essential hypertension Qualified Code(s): I10 - Essential (primary) hypertension (7) Obese Code(s): E66.9 - OBESITY, UNSPECIFIED Qualifiers: Obesity type: unspecified obesity type Obesity classification: adult class 1 (BMI 30 - 34.9) Serious obesity comorbidity presence: with serious comorbidity Body mass index: BMI 33.0-33.9 Qualified Code(s): E66.9 - Obesity, unspecified; Z68.33 - Body mass index (BMI) 33.0-33.9, adult
[2017-08-12] MEDS ORDERED: PT OWN MED DRAWER 7, Y5N ONE (09:52)
[2017-08-12] MEDS: amLODIPine BESYLATE 10 MG TABLET (FP) PO SCH (10:00)
[2017-08-12] MEDS: PRENATAL VITAMINS W/ FOLIC ACID TABLET (FP) PO SCH (10:00)
[2017-08-12] MEDS: HYDROCHLOROTHIAZIDE 25 MG TABLET (FP) PO SCH (10:00)
[2017-08-12 11:38] LABS: BASO % 0.5 % (0-2.0); HEMOGLOBIN 14.5 GM/dL (11.7-16.9); LYMPH % 8.4 % (8-40); MCHC 33.8 g/dl (32.0-35.9); MEAN CELL VOLUME 88.6 fl (80-96); MONO % 5.9 % (3.8-10.2); NEUT % 85.2 % (42.8-82.8); PLATELET COUNT 235 K/MM3 (134-434); RBC 4.85 M/mm3 (4.00-5.60); RDW 13.6 % (11.9-15.9); WHITE BLOOD COUNT 18.1 K/mm3 (4.0-10.0)
--- NOTE | 2017-08-12 13:20 | PN ---
Teaching Attending Note Name of Resident: Jairo Triana ATTENDING PHYSICIAN STATEMENT I saw and evaluated the patient. I reviewed the resident's note and discussed the case with the resident. I agree with the resident's findings and plan as documented. SUBJECTIVE:states pain has resolved. does not recall trauma to the hand or wrist. denies CP, SOB< fever, chills, N/V/C?D denies IVDA OBJECTIVE: Last Vital Signs Temp Pulse Resp BP Pulse Ox 97.9 F 79 17 145/92 96 08/12/17 09:57 08/12/17 09:57 08/12/17 09:57 08/12/17 09:57 08/11/17 18:49 General NAD Extremities L hand in hard cast. able to move fingers. no rash or erythema noted ASSESSMENT AND PLAN: 52yo M with PMH continuous polysubstance abuse, HTN and BPH presented with L hand swelling and pain 1. L avascular necrosis of the scaphoid- s/p steroid injection with relief and casted. was unable to examine the wrist but spoke with hand surgeon who states he has low suspicion for cellulitis but agrees with empiric coverage. can d/c on augmentin to complete 1 week. will f/u in hand clinic to re-evaluate. 2. Luekocytosis-liekly reactive. trending up today likely from steroid injection. afebrile. as per surgeon low suspicion for infection. 3. d/c to [facility] today with augmentin
[2017-08-12 14:33] VITALS: BP 143/89; PULSE 72; TEMP 97.7
--- NOTE | 2017-08-12 15:05 | DS ---
Physical Exam: SUBJECTIVE: Patient seen and examined in [facility]. Pt has no complaints at this time. States he would like to go back to [facility] as he is trying to get his life back in order. He states he had been clean off drugs but ad a relapse because of problems with a relationship, but he has rededicated himself to his sobriety. OBJECTIVE: Vital Signs Period Temp Pulse Resp BP Sys/Pérez Pulse Ox Last 24 Hr 97.5 F-98.3 F 72-85 17-20 136-146/68-92 96-96 PHYSICAL EXAM Gen: Sitting in chair, NAD HEENT: NCAT, EOMI Neck: supple, no jvd Cardio: RRR, normal s1s2, no mrg Pulm: CTA b/l Abd: soft, nontender, no tenderness, no guarding. Ext: Left hand with cast. Right hand with chronic sign of benediction following laceration LABS Laboratory Results - last 24 hr 08/12/17 11:00 WBC 18.1 H RBC 4.85 Hgb 14.5 Hct 43.0 MCV 88.6 MCH 30.0 MCHC 33.8 RDW 13.6 Plt Count 235 MPV 10.0 Absolute Neuts (auto) 15.4 Neutrophils % 85.2 H D Lymphocytes % 8.4 D Monocytes % 5.9 Eosinophils % 0.0 D Basophils % 0.5 Nucleated RBC % 0 HOSPITAL COURSE: Date of Admission:08/11/17 Date of Discharge: 08/12/17 Pt is a pleasant 52 y/o M with H polysubstance abuse (sniffed heroin and cocaine and abused EtOH), who recently completed a detox at [facility]. He presented to the ED with complaint of L wrist pain and swelling limiting ROM of the hand. He was seen by infectious diseases who recommended out pt treatment with Augmentin x 1 week. He was seen by hand surg who recommended against intervention and opted instead for immobilization with a cast. The pt was given strict instructions to return if he has increased pain or fever. He was sent back to [facility] for Rehab. Minutes to complete discharge: 30 Discharge Summary Reason For Visit: SWELLING OF JOINT OF LEFT WRIST Current Active Problems Alcohol dependence (Chronic) Nicotine dependence (Chronic) Opioid dependence (Chronic) Condition: Stable - Instructions Diet, Activity, Other Instructions: You were admitted for avascular necrosis of scaphoid. You are now stable to be discharged back to [facility] to continue rehab. You need to follow up with the hand surgeon who saw you here, His information has been provided Cont. to take augmentin for 7 days. Follow up with your primary care doctor in 1 week Keep your wrist elevated and continue to apply the thumb spica splint. Referrals: Suraj Pal MD [Staff Physician] - 1 Week Disposition: TRANSFER ACUTE CARE/OTHER HOSP - Home Medications Comprehensive Discharge Medication List: Ambulatory Orders Amlodipine Besylate [Norvasc -] 10 mg PO DAILY #30 tablet 08/08/17 Enalapril Maleate [Vasotec] 20 mg PO DAILY 30 Days #30 tablet 08/08/17 Hydrochlorothiazide [Hctz -] 25 mg PO DAILY #30 tablet 08/08/17 Tamsulosin HCl [Flomax] 0.4 mg PO DAILY 08/11/17 Amoxicillin/Potassium Clav [Augmentin 500-125 Tablet] 500 mg PO BID #14 tablet 08/12/17 This patient is new to me today: Yes Date on this admission: 08/12/17 Emergency Visit: No Critical Care patient: No - Discharge Referral Referred to [facility] Med P.C.: No
== END 2017-08-12 15:33 | disposition short-term general hospital (02) ==
LOC: JER 18:41 → JERBED 08-11 08:56 → J6S 08-11 12:41
PROVIDERS: ADMIT Internal Medicine; ATTEND Internal Medicine
PROC: 3E03329 Introduction of Other Anti-infective into Peripheral Vein, Percutaneous Approach (ICD-10-PCS; principal; 2017-08-11)
PROC: 3E0333Z Introduction of Anti-inflammatory into Peripheral Vein, Percutaneous Approach (ICD-10-PCS; 2017-08-11)
PROC: 3E033GC Introduction of Other Therapeutic Substance into Peripheral Vein, Percutaneous Approach (ICD-10-PCS; 2017-08-11)
DX: M25.432 Effusion, left wrist (principal); F11.20 Opioid dependence, uncomplicated; F10.20 Alcohol dependence, uncomplicated; F14.20 Cocaine dependence, uncomplicated; M87.039 Idiopathic aseptic necrosis of unspecified carpus; I10 Essential (primary) hypertension; N40.0 Benign prostatic hyperplasia without lower urinary tract symptoms; F17.210 Nicotine dependence, cigarettes, uncomplicated; E66.9 Obesity, unspecified; Z68.34 Body mass index [BMI] 34.0-34.9, adult
CPT/HCPCS: 36415; 73200-TC-RT; 80053; 85025; 87040; 96365; 96367; 96375; 99285-25; G0378

== ENCOUNTER 2020-10-07 12:48 | Inpatient (IN) | payer OTHER ==
[2020-10-07 13:11] VITALS: BMI 26.6
[2020-10-07] MEDS ORDERED: BISMUTH SUBSALICYLATE 524 MG/30 ML PO PRN (16:08)
[2020-10-07] MEDS ORDERED: MAGNESIUM HYDROX 2400MG/30ML ORAL SUSPENSION 30 ML CUP PO PRN (16:08)
[2020-10-07] MEDS ORDERED: ACETAMINOPHEN 325 MG TABLET (FP) PO PRN ×2 (16:08)
[2020-10-07] MEDS ORDERED: methaDONE HCL 10 MG TABLET (FOR DETOX USE ONLY) PO ONE (16:08)
[2020-10-07] MEDS ORDERED: MAGNESIUM CITRATE 300 ML BOTTLE PO PRN (16:08)
[2020-10-07] MEDS ORDERED: MENTHOL/PHENOL 1 EACH UD MM PRN (16:08)
[2020-10-07] MEDS ORDERED: ONDANSETRON *ODT* 4 MG TABLET SL PRN (16:08)
[2020-10-07] MEDS ORDERED: clonazePAM 0.5 MG ODT TABLETS SL PRN (16:08)
[2020-10-07] MEDS ORDERED: IBUPROFEN 400 MG TABLET (FP) PO PRN (16:08)
[2020-10-07] MEDS ORDERED: diazePAM 5 MG TABLET PO PRN (16:08)
[2020-10-07] MEDS ORDERED: MAG HYDROX/AL HYDROX/SIMETH 30 ML UNIT-DOSE CUP PO PRN (16:08)
[2020-10-07] MEDS: diazePAM 5 MG TABLET PO SCH ×2 (17:51→22:56)
[2020-10-07] MEDS: HYDROCHLOROTHIAZIDE 25 MG TABLET (FP) PO SCH (17:58)
[2020-10-07] MEDS: amLODIPine BESYLATE 10 MG TABLET (FP) PO SCH (17:59)
[2020-10-07] MEDS: hydrOXYzine PAMOATE 25 MG CAPSULE (FP) PO SCH ×2 (17:59→22:56)
[2020-10-07] MEDS: ENALAPRIL MALEATE 10 MG TABLET PO SCH (17:59)
[2020-10-07] MEDS: cloNIDine HCL 0.1 MG TABLET PO PRN (19:37)
[2020-10-07] MEDS: TAMSULOSIN HCL 0.4 MG CAP PO SCH (22:55)
[2020-10-07] MEDS: METHOCARBAMOL 500 MG TABLET PO PRN (22:55)
[2020-10-07] MEDS: MELATONIN 5 MG TABLETS PO SCH (22:56)
[2020-10-07] MEDS: THIAMINE HCL 100 MG TABLET (FP) PO SCH (22:56)
[2020-10-08] MEDS: diazePAM 5 MG TABLET PO SCH ×4 (06:46→22:20)
[2020-10-08] MEDS: hydrOXYzine PAMOATE 25 MG CAPSULE (FP) PO SCH ×2 (06:47→10:36)
[2020-10-08] MEDS ORDERED: methaDONE HCL 10 MG TABLET (FOR DETOX USE ONLY) ONE (08:35)
[2020-10-08] MEDS: HYDROCHLOROTHIAZIDE 25 MG TABLET (FP) PO SCH (10:35)
[2020-10-08] MEDS: ENALAPRIL MALEATE 10 MG TABLET PO SCH (10:36)
[2020-10-08] MEDS: PRENATAL VITAMINS W/ FOLIC ACID TABLET (FP) PO SCH (10:36)
[2020-10-08] MEDS: amLODIPine BESYLATE 10 MG TABLET (FP) PO SCH (10:37)
[2020-10-08 11:27] LABS: HEMATOCRIT 43.1 % (35.4-49); HEMOGLOBIN 14.7 GM/dL (11.7-16.9); MCH 31.3 pg (25.7-33.7); MCHC 34.1 g/dl (32.0-35.9); MEAN PLT VOLUME 8.4 fl (7.5-11.1); PLATELET COUNT 218 10^3/uL (134-434); RBC 4.69 M/mm3 (4.00-5.60); RDW 14.4 % (11.9-15.9); WHITE BLOOD COUNT 5.3 K/mm3 (4.0-10.0)
[2020-10-08 11:52] LABS: ALBUMIN 3.6 g/dl (3.4-5.0)
[2020-10-08 11:55] LABS: CREATININE 1.2 mg/dL (0.55-1.3)
[2020-10-08 11:57] LABS: BILIRUBIN,TOTAL 0.6 mg/dL (0.2-1); TOT PROT 7.7 g/dl (6.4-8.2)
[2020-10-08] MEDS: cloNIDine HCL 0.1 MG TABLET PO PRN ×2 (15:17→22:23)
[2020-10-08] MEDS: hydrOXYzine PAMOATE 25 MG CAPSULE (FP) PO PRN (17:27)
[2020-10-08] MEDS: THIAMINE HCL 100 MG TABLET (FP) PO SCH (22:19)
[2020-10-08] MEDS: TAMSULOSIN HCL 0.4 MG CAP PO SCH (22:19)
[2020-10-08] MEDS: MELATONIN 5 MG TABLETS PO SCH (22:19)
[2020-10-08] MEDS: METHOCARBAMOL 500 MG TABLET PO PRN (22:22)
[2020-10-09] MEDS: diazePAM 5 MG TABLET PO SCH ×3 (05:25→22:47)
[2020-10-09] MEDS ORDERED: methaDONE HCL 10 MG TABLET (FOR DETOX USE ONLY) PO ONE (10:00)
[2020-10-09] MEDS: HYDROCHLOROTHIAZIDE 25 MG TABLET (FP) PO SCH (10:18)
[2020-10-09] MEDS: ENALAPRIL MALEATE 10 MG TABLET PO SCH (10:18)
[2020-10-09] MEDS: PRENATAL VITAMINS W/ FOLIC ACID TABLET (FP) PO SCH (10:19)
[2020-10-09] MEDS: amLODIPine BESYLATE 10 MG TABLET (FP) PO SCH (10:19)
[2020-10-09] MEDS: cloNIDine HCL 0.1 MG TABLET PO PRN ×2 (18:06→22:46)
[2020-10-09] MEDS: TAMSULOSIN HCL 0.4 MG CAP PO SCH (22:46)
[2020-10-09] MEDS: MELATONIN 5 MG TABLETS PO SCH (22:46)
[2020-10-09] MEDS: THIAMINE HCL 100 MG TABLET (FP) PO SCH (22:46)
[2020-10-09] MEDS: hydrOXYzine PAMOATE 25 MG CAPSULE (FP) PO PRN (22:48)
[2020-10-09] MEDS: METHOCARBAMOL 500 MG TABLET PO PRN (22:48)
[2020-10-10] MEDS: diazePAM 5 MG TABLET PO SCH ×2 (06:34→17:49)
[2020-10-10] MEDS ORDERED: methaDONE HCL 10 MG TABLET (FOR DETOX USE ONLY) ONE (08:59)
[2020-10-10] MEDS: PRENATAL VITAMINS W/ FOLIC ACID TABLET (FP) PO SCH (10:30)
[2020-10-10] MEDS: amLODIPine BESYLATE 10 MG TABLET (FP) PO SCH (10:32)
[2020-10-10] MEDS: HYDROCHLOROTHIAZIDE 25 MG TABLET (FP) PO SCH (10:36)
[2020-10-10] MEDS: ENALAPRIL MALEATE 10 MG TABLET PO SCH (10:38)
[2020-10-10 17:52] VITALS: PULSE 78
[2020-10-10] MEDS: MELATONIN 5 MG TABLETS PO SCH (22:30)
[2020-10-10] MEDS: hydrOXYzine PAMOATE 25 MG CAPSULE (FP) PO PRN (22:30)
[2020-10-10] MEDS: METHOCARBAMOL 500 MG TABLET PO PRN (22:30)
[2020-10-10] MEDS: TAMSULOSIN HCL 0.4 MG CAP PO SCH (22:30)
[2020-10-10] MEDS: THIAMINE HCL 100 MG TABLET (FP) PO SCH (22:30)
[2020-10-11] MEDS ORDERED: diazePAM 5 MG TABLET PO ONE (06:00)
[2020-10-11 06:41] VITALS: BP 140/91; TEMP 97.9
[2020-10-11] MEDS: PRENATAL VITAMINS W/ FOLIC ACID TABLET (FP) PO SCH (09:44)
[2020-10-11] MEDS: amLODIPine BESYLATE 10 MG TABLET (FP) PO SCH (09:45)
[2020-10-11] MEDS: HYDROCHLOROTHIAZIDE 25 MG TABLET (FP) PO SCH (09:45)
[2020-10-11] MEDS: ENALAPRIL MALEATE 10 MG TABLET PO SCH (09:45)
[2020-10-11] MEDS ORDERED: methaDONE HCL 10 MG TABLET (FOR DETOX USE ONLY) PO ONE (10:00)
== END 2020-10-11 10:40 | disposition home or self-care (01) | DRG 773 ==
LOC: YASAS 12:48 → Y3N 17:04
PROVIDERS: ADMIT Allergy & Immunology; ATTEND Allergy & Immunology
PROC: HZ2ZZZZ Detoxification Services for Substance Abuse Treatment (ICD-10-PCS; principal; 2020-10-07)
DX: F11.23 Opioid dependence with withdrawal (principal); F10.230 Alcohol dependence with withdrawal, uncomplicated; F14.20 Cocaine dependence, uncomplicated; F17.210 Nicotine dependence, cigarettes, uncomplicated; I10 Essential (primary) hypertension; G47.9 Sleep disorder, unspecified; M54.5 Low back pain; N40.1 Benign prostatic hyperplasia with lower urinary tract symptoms; E66.9 Obesity, unspecified; Z68.33 Body mass index [BMI] 33.0-33.9, adult; Z87.39 Personal history of other diseases of the musculoskeletal system and connective tissue
CPT/HCPCS: 36415; 80053; 85027; 86593; 86780; 93005; 93010; C9803; J0735; U0003; U0005

== ENCOUNTER 2020-12-02 08:19 | Inpatient (IN) | payer OTHER ==
[2020-12-02] MEDS ORDERED: cloNIDine HCL 0.1 MG TABLET PO STA (09:18)
[2020-12-02 09:19] VITALS: BMI 28.1
[2020-12-02] MEDS ORDERED: cloNIDine HCL 0.1 MG TABLET ONE (09:30)
[2020-12-02] MEDS ORDERED: NICOTINE 10 MG CARTRIDGE (INHALER) IH PRN (09:48)
[2020-12-02] MEDS ORDERED: MAGNESIUM CITRATE 300 ML BOTTLE PO PRN (09:48)
[2020-12-02] MEDS ORDERED: ACETAMINOPHEN 325 MG TABLET (FP) PO PRN ×2 (09:48)
[2020-12-02] MEDS ORDERED: ONDANSETRON *ODT* 4 MG TABLET SL PRN (09:48)
[2020-12-02] MEDS ORDERED: MAG HYDROX/AL HYDROX/SIMETH 30 ML UNIT-DOSE CUP PO PRN (09:48)
[2020-12-02] MEDS ORDERED: MAGNESIUM HYDROX 2400MG/30ML ORAL SUSPENSION 30 ML CUP PO PRN (09:48)
[2020-12-02] MEDS ORDERED: BISMUTH SUBSALICYLATE 524 MG/30 ML PO PRN (09:48)
[2020-12-02] MEDS ORDERED: MENTHOL/PHENOL 1 EACH UD MM PRN (09:48)
[2020-12-02] MEDS ORDERED: diazePAM 5 MG TABLET PO PRN (09:48)
[2020-12-02] MEDS ORDERED: amLODIPine BESYLATE 5 MG TABLET (FP) ONE (10:09)
[2020-12-02] MEDS ORDERED: methaDONE HCL 10 MG TABLET (FOR DETOX USE ONLY) PO ONE (10:15)
[2020-12-02] MEDS: hydrOXYzine PAMOATE 25 MG CAPSULE (FP) PO SCH ×4 (10:45→22:33)
[2020-12-02] MEDS: diazePAM 5 MG TABLET PO SCH ×3 (10:45→22:34)
[2020-12-02] MEDS: amLODIPine BESYLATE 10 MG TABLET (FP) PO SCH (10:45)
[2020-12-02] MEDS: NICOTINE 7 MG/24 HOURS TOPICAL PATCH TD SCH (10:45)
[2020-12-02] MEDS: HYDROCHLOROTHIAZIDE 25 MG TABLET (FP) PO SCH (10:45)
[2020-12-02] MEDS: PRENATAL VITAMINS W/ FOLIC ACID TABLET (FP) PO SCH (10:45)
[2020-12-02] MEDS: ENALAPRIL MALEATE 10 MG TABLET PO SCH (12:04)
[2020-12-02 15:04] LABS: HEMATOCRIT 41.6 % (35.4-49); HEMOGLOBIN 14.4 GM/dL (11.7-16.9); MCH 31.7 pg (25.7-33.7); MCHC 34.6 g/dl (32.0-35.9); MEAN CELL VOLUME 91.6 fl (80-96); MEAN PLT VOLUME 8.3 fl (7.5-11.1); PLATELET COUNT 316 10^3/uL (134-434); RBC 4.55 M/mm3 (4.00-5.60); RDW 13.9 % (11.9-15.9); WHITE BLOOD COUNT 8.9 K/mm3 (4.0-10.0)
[2020-12-02 15:11] LABS: CALCIUM 8.9 mg/dL (8.5-10.1)
[2020-12-02 15:12] LABS: BLOOD UREA NITROGEN 14.7 mg/dL (7-18)
[2020-12-02 15:16] LABS: BILIRUBIN,TOTAL 0.4 mg/dL (0.2-1); TOT PROT 7.8 g/dl (6.4-8.2)
[2020-12-02] MEDS: cloNIDine HCL 0.1 MG TABLET PO PRN ×2 (18:06→22:36)
[2020-12-02] MEDS: MELATONIN 5 MG TABLETS PO SCH (22:33)
[2020-12-02] MEDS: THIAMINE HCL 100 MG TABLET (FP) PO SCH (22:33)
[2020-12-02] MEDS: TAMSULOSIN HCL 0.4 MG CAP PO SCH (22:33)
[2020-12-02] MEDS: IBUPROFEN 400 MG TABLET (FP) PO PRN (22:36)
[2020-12-03] MEDS: hydrOXYzine PAMOATE 25 MG CAPSULE (FP) PO SCH ×2 (06:32→10:36)
[2020-12-03] MEDS: cloNIDine HCL 0.1 MG TABLET PO PRN ×2 (06:32→13:25)
[2020-12-03] MEDS: diazePAM 5 MG TABLET PO SCH ×4 (06:32→22:30)
[2020-12-03] MEDS ORDERED: methaDONE HCL 10 MG TABLET (FOR DETOX USE ONLY) ONE (09:07)
[2020-12-03] MEDS: ENALAPRIL MALEATE 10 MG TABLET PO SCH (10:32)
[2020-12-03] MEDS: NICOTINE 7 MG/24 HOURS TOPICAL PATCH TD SCH (10:32)
[2020-12-03] MEDS: HYDROCHLOROTHIAZIDE 25 MG TABLET (FP) PO SCH (10:33)
[2020-12-03] MEDS: amLODIPine BESYLATE 10 MG TABLET (FP) PO SCH (10:33)
[2020-12-03] MEDS: PRENATAL VITAMINS W/ FOLIC ACID TABLET (FP) PO SCH (10:36)
[2020-12-03] MEDS: TAMSULOSIN HCL 0.4 MG CAP PO SCH (22:30)
[2020-12-03] MEDS: MELATONIN 5 MG TABLETS PO SCH (22:30)
[2020-12-03] MEDS: THIAMINE HCL 100 MG TABLET (FP) PO SCH (22:30)
[2020-12-03] MEDS: hydrOXYzine PAMOATE 25 MG CAPSULE (FP) PO PRN (22:31)
[2020-12-03] MEDS: METHOCARBAMOL 500 MG TABLET PO PRN (22:31)
[2020-12-04] MEDS: diazePAM 5 MG TABLET PO SCH ×3 (05:57→22:23)
[2020-12-04] MEDS: hydrOXYzine PAMOATE 25 MG CAPSULE (FP) PO PRN (05:57)
[2020-12-04] MEDS: cloNIDine HCL 0.1 MG TABLET PO PRN ×2 (07:06→22:23)
[2020-12-04] MEDS ORDERED: methaDONE HCL 10 MG TABLET (FOR DETOX USE ONLY) PO ONE (10:00)
[2020-12-04] MEDS: HYDROCHLOROTHIAZIDE 25 MG TABLET (FP) PO SCH (10:05)
[2020-12-04] MEDS: PRENATAL VITAMINS W/ FOLIC ACID TABLET (FP) PO SCH (10:06)
[2020-12-04] MEDS: ENALAPRIL MALEATE 10 MG TABLET PO SCH (10:06)
[2020-12-04] MEDS: NICOTINE 7 MG/24 HOURS TOPICAL PATCH TD SCH (11:09)
[2020-12-04] MEDS: amLODIPine BESYLATE 10 MG TABLET (FP) PO SCH (11:12)
[2020-12-04] MEDS: THIAMINE HCL 100 MG TABLET (FP) PO SCH (22:21)
[2020-12-04] MEDS: TAMSULOSIN HCL 0.4 MG CAP PO SCH (22:21)
[2020-12-04] MEDS: MELATONIN 5 MG TABLETS PO SCH (22:22)
[2020-12-04] MEDS: METHOCARBAMOL 500 MG TABLET PO PRN (22:23)
[2020-12-05] MEDS: diazePAM 5 MG TABLET PO SCH ×2 (06:49→17:28)
[2020-12-05] MEDS ORDERED: methaDONE HCL 10 MG TABLET (FOR DETOX USE ONLY) ONE (08:46)
[2020-12-05] MEDS: amLODIPine BESYLATE 10 MG TABLET (FP) PO SCH (10:19)
[2020-12-05] MEDS: ENALAPRIL MALEATE 10 MG TABLET PO SCH (10:19)
[2020-12-05] MEDS: HYDROCHLOROTHIAZIDE 25 MG TABLET (FP) PO SCH (10:19)
[2020-12-05] MEDS: PRENATAL VITAMINS W/ FOLIC ACID TABLET (FP) PO SCH (10:19)
[2020-12-05] MEDS: NICOTINE 7 MG/24 HOURS TOPICAL PATCH TD SCH (10:52)
[2020-12-05] MEDS: THIAMINE HCL 100 MG TABLET (FP) PO SCH (22:09)
[2020-12-05] MEDS: MELATONIN 5 MG TABLETS PO SCH (22:09)
[2020-12-05] MEDS: TAMSULOSIN HCL 0.4 MG CAP PO SCH (22:09)
[2020-12-05] MEDS: METHOCARBAMOL 500 MG TABLET PO PRN (22:10)
[2020-12-05] MEDS: hydrOXYzine PAMOATE 25 MG CAPSULE (FP) PO PRN (22:10)
[2020-12-05] MEDS: IBUPROFEN 400 MG TABLET (FP) PO PRN (22:11)
[2020-12-06] MEDS ORDERED: diazePAM 5 MG TABLET PO ONE (06:00)
[2020-12-06] MEDS ORDERED: methaDONE HCL 10 MG TABLET (FOR DETOX USE ONLY) PO ONE (10:00)
[2020-12-06] MEDS: PRENATAL VITAMINS W/ FOLIC ACID TABLET (FP) PO SCH (10:21)
[2020-12-06] MEDS: amLODIPine BESYLATE 10 MG TABLET (FP) PO SCH (10:21)
[2020-12-06] MEDS: ENALAPRIL MALEATE 10 MG TABLET PO SCH (10:22)
[2020-12-06] MEDS: HYDROCHLOROTHIAZIDE 25 MG TABLET (FP) PO SCH (10:24)
[2020-12-06] MEDS: NICOTINE 7 MG/24 HOURS TOPICAL PATCH TD SCH (11:12)
[2020-12-06] MEDS: MELATONIN 5 MG TABLETS PO SCH (22:31)
[2020-12-06] MEDS: THIAMINE HCL 100 MG TABLET (FP) PO SCH (22:31)
[2020-12-06] MEDS: TAMSULOSIN HCL 0.4 MG CAP PO SCH (22:31)
[2020-12-06] MEDS: hydrOXYzine PAMOATE 25 MG CAPSULE (FP) PO PRN (22:32)
[2020-12-07 09:29] VITALS: BP 154/83; PULSE 75; TEMP 96.6
[2020-12-07] MEDS: PRENATAL VITAMINS W/ FOLIC ACID TABLET (FP) PO SCH (10:17)
[2020-12-07] MEDS: amLODIPine BESYLATE 10 MG TABLET (FP) PO SCH (10:17)
[2020-12-07] MEDS: ENALAPRIL MALEATE 10 MG TABLET PO SCH (10:17)
[2020-12-07] MEDS: HYDROCHLOROTHIAZIDE 25 MG TABLET (FP) PO SCH (10:17)
[2020-12-07] MEDS: NICOTINE 7 MG/24 HOURS TOPICAL PATCH TD SCH (10:18)
== END 2020-12-07 11:13 | disposition home or self-care (01) | DRG 773 ==
LOC: YASAS 08:19 → Y3N 09:58
PROVIDERS: ADMIT Allergy & Immunology; ATTEND Allergy & Immunology
PROC: HZ2ZZZZ Detoxification Services for Substance Abuse Treatment (ICD-10-PCS; principal; 2020-12-02)
DX: F11.23 Opioid dependence with withdrawal (principal); F10.230 Alcohol dependence with withdrawal, uncomplicated; F14.20 Cocaine dependence, uncomplicated; F17.210 Nicotine dependence, cigarettes, uncomplicated; I10 Essential (primary) hypertension; N40.1 Benign prostatic hyperplasia with lower urinary tract symptoms; R39.11 Hesitancy of micturition; Z87.39 Personal history of other diseases of the musculoskeletal system and connective tissue
CPT/HCPCS: 36415; 80053; 85027; 86593; 86780; C9803; J0735; U0003; U0005

== ENCOUNTER 2020-12-31 16:38 | Inpatient (IN) | payer OTHER ==
[2020-12-31] MEDS ORDERED: MAG HYDROX/AL HYDROX/SIMETH 30 ML UNIT-DOSE CUP PO PRN (19:11)
[2020-12-31] MEDS ORDERED: ACETAMINOPHEN 325 MG TABLET (FP) PO PRN (19:11)
[2020-12-31] MEDS ORDERED: MENTHOL/PHENOL 1 EACH UD MM PRN (19:11)
[2020-12-31] MEDS ORDERED: ONDANSETRON *ODT* 4 MG TABLET SL PRN (19:11)
[2020-12-31] MEDS ORDERED: MAGNESIUM CITRATE 300 ML BOTTLE PO PRN (19:11)
[2020-12-31] MEDS ORDERED: BISMUTH SUBSALICYLATE 524 MG/30 ML PO PRN (19:11)
[2020-12-31] MEDS ORDERED: MAGNESIUM HYDROX 2400MG/30ML ORAL SUSPENSION 30 ML CUP PO PRN (19:11)
[2020-12-31] MEDS ORDERED: methaDONE HCL 10 MG TABLET (FOR DETOX USE ONLY) PO ONE (20:30)
[2020-12-31] MEDS: PRENATAL VITAMINS W/ FOLIC ACID TABLET (FP) PO SCH (20:49)
[2020-12-31] MEDS: amLODIPine BESYLATE 10 MG TABLET (FP) PO SCH (20:50)
[2020-12-31] MEDS: ENALAPRIL MALEATE 10 MG TABLET PO SCH (20:50)
[2020-12-31] MEDS: TAMSULOSIN HCL 0.4 MG CAP PO SCH (22:27)
[2020-12-31] MEDS: METHOCARBAMOL 500 MG TABLET PO PRN (22:27)
[2020-12-31] MEDS: THIAMINE HCL 100 MG TABLET (FP) PO SCH (22:27)
[2020-12-31] MEDS: MELATONIN 5 MG TABLETS PO SCH (22:27)
[2020-12-31] MEDS: CALAMINE 8% TOPICAL LOTION 177 ML BOTTLE TP PRN (22:28)
[2021-01-01] MEDS: CALAMINE 8% TOPICAL LOTION 177 ML BOTTLE TP PRN (05:26)
[2021-01-01] MEDS ORDERED: methaDONE HCL 10 MG TABLET (FOR DETOX USE ONLY) ONE (09:42)
[2021-01-01] MEDS: amLODIPine BESYLATE 10 MG TABLET (FP) PO SCH (09:53)
[2021-01-01] MEDS: ENALAPRIL MALEATE 10 MG TABLET PO SCH (09:53)
[2021-01-01] MEDS: METHOCARBAMOL 500 MG TABLET PO PRN (09:53)
[2021-01-01] MEDS: hydrOXYzine PAMOATE 25 MG CAPSULE (FP) PO PRN (09:53)
[2021-01-01] MEDS: PRENATAL VITAMINS W/ FOLIC ACID TABLET (FP) PO SCH (09:54)
[2021-01-01] MEDS: DOXYCYCLINE HYCLATE 100 MG CAPSULE PO SCH ×2 (09:54→17:51)
[2021-01-01] MEDS: cloNIDine HCL 0.1 MG TABLET PO PRN (14:07)
[2021-01-01] MEDS: TAMSULOSIN HCL 0.4 MG CAP PO SCH (21:16)
[2021-01-01] MEDS: MELATONIN 5 MG TABLETS PO SCH (21:16)
[2021-01-01] MEDS: THIAMINE HCL 100 MG TABLET (FP) PO SCH (21:16)
[2021-01-02] MEDS: METHOCARBAMOL 500 MG TABLET PO PRN ×2 (06:01→17:52)
[2021-01-02] MEDS: ACETAMINOPHEN 325 MG TABLET (FP) PO PRN (06:01)
[2021-01-02] MEDS: hydrOXYzine PAMOATE 25 MG CAPSULE (FP) PO PRN (06:01)
[2021-01-02] MEDS: ENALAPRIL MALEATE 10 MG TABLET PO SCH (09:42)
[2021-01-02] MEDS: amLODIPine BESYLATE 10 MG TABLET (FP) PO SCH (09:42)
[2021-01-02] MEDS: cloNIDine HCL 0.1 MG TABLET PO PRN ×2 (09:42→17:52)
[2021-01-02] MEDS ORDERED: methaDONE HCL 10 MG TABLET (FOR DETOX USE ONLY) PO ONE (10:00)
[2021-01-02] MEDS: PRENATAL VITAMINS W/ FOLIC ACID TABLET (FP) PO SCH (10:47)
[2021-01-02] MEDS: DOXYCYCLINE HYCLATE 100 MG CAPSULE PO SCH (10:47)
[2021-01-02] MEDS: DOXYCYCLINE HYCLATE 100 MG TABLET PO SCH (17:52)
[2021-01-02] MEDS: MELATONIN 5 MG TABLETS PO SCH (22:14)
[2021-01-02] MEDS: IBUPROFEN 400 MG TABLET (FP) PO PRN (22:14)
[2021-01-02] MEDS: THIAMINE HCL 100 MG TABLET (FP) PO SCH (22:14)
[2021-01-02] MEDS: TAMSULOSIN HCL 0.4 MG CAP PO SCH (22:14)
[2021-01-03] MEDS ORDERED: methaDONE HCL 10 MG TABLET (FOR DETOX USE ONLY) ONE (09:25)
[2021-01-03] MEDS: METHOCARBAMOL 500 MG TABLET PO PRN ×2 (09:52→17:53)
[2021-01-03] MEDS: ENALAPRIL MALEATE 10 MG TABLET PO SCH (09:52)
[2021-01-03] MEDS: amLODIPine BESYLATE 10 MG TABLET (FP) PO SCH (09:52)
[2021-01-03] MEDS: DOXYCYCLINE HYCLATE 100 MG TABLET PO SCH ×2 (09:52→17:51)
[2021-01-03] MEDS ORDERED: cloNIDine HCL 0.1 MG TABLET PO PRN (09:59)
[2021-01-03] MEDS: IBUPROFEN 400 MG TABLET (FP) PO PRN (10:05)
[2021-01-03] MEDS: PRENATAL VITAMINS W/ FOLIC ACID TABLET (FP) PO SCH (12:43)
[2021-01-03] MEDS: ACETAMINOPHEN 325 MG TABLET (FP) PO PRN (17:54)
[2021-01-03] MEDS: TAMSULOSIN HCL 0.4 MG CAP PO SCH (22:13)
[2021-01-03] MEDS: MELATONIN 5 MG TABLETS PO SCH (22:13)
[2021-01-03] MEDS: THIAMINE HCL 100 MG TABLET (FP) PO SCH (22:13)
[2021-01-04] MEDS: amLODIPine BESYLATE 10 MG TABLET (FP) PO SCH (09:49)
[2021-01-04] MEDS: ENALAPRIL MALEATE 10 MG TABLET PO SCH (09:49)
[2021-01-04] MEDS: METHOCARBAMOL 500 MG TABLET PO PRN ×2 (09:49→17:34)
[2021-01-04] MEDS: PRENATAL VITAMINS W/ FOLIC ACID TABLET (FP) PO SCH (09:50)
[2021-01-04] MEDS: DOXYCYCLINE HYCLATE 100 MG TABLET PO SCH ×2 (09:51→17:35)
[2021-01-04] MEDS ORDERED: methaDONE HCL 10 MG TABLET (FOR DETOX USE ONLY) PO ONE (10:00)
[2021-01-04] MEDS: THIAMINE HCL 100 MG TABLET (FP) PO SCH (22:29)
[2021-01-04] MEDS: MELATONIN 5 MG TABLETS PO SCH (22:29)
[2021-01-04] MEDS: TAMSULOSIN HCL 0.4 MG CAP PO SCH (22:29)
[2021-01-04] MEDS: CALAMINE 8% TOPICAL LOTION 177 ML BOTTLE TP PRN (22:29)
[2021-01-04] MEDS: IBUPROFEN 400 MG TABLET (FP) PO PRN (22:31)
[2021-01-04] MEDS: hydrOXYzine PAMOATE 25 MG CAPSULE (FP) PO PRN (22:32)
[2021-01-05] MEDS: ENALAPRIL MALEATE 10 MG TABLET PO SCH (10:10)
[2021-01-05] MEDS: amLODIPine BESYLATE 10 MG TABLET (FP) PO SCH (10:11)
[2021-01-05] MEDS: DOXYCYCLINE HYCLATE 100 MG TABLET PO SCH (10:11)
[2021-01-05] MEDS: PRENATAL VITAMINS W/ FOLIC ACID TABLET (FP) PO SCH (10:11)
[2021-01-05 13:21] VITALS: BP 177/109; PULSE 74; TEMP 97.7
== END 2021-01-05 15:28 | disposition other institution (70) | DRG 773 ==
LOC: YASAS 16:38 → Y3N 19:19
PROVIDERS: ADMIT Allergy & Immunology; ATTEND Allergy & Immunology
PROC: HZ2ZZZZ Detoxification Services for Substance Abuse Treatment (ICD-10-PCS; principal; 2020-12-31)
DX: F11.23 Opioid dependence with withdrawal (principal); F10.230 Alcohol dependence with withdrawal, uncomplicated; F14.20 Cocaine dependence, uncomplicated; F17.210 Nicotine dependence, cigarettes, uncomplicated; I10 Essential (primary) hypertension; N40.0 Benign prostatic hyperplasia without lower urinary tract symptoms; Z86.19 Personal history of other infectious and parasitic diseases
CPT/HCPCS: C9803; J0735; U0003; U0005

== ENCOUNTER 2021-01-05 15:31 | Inpatient (IN) | payer OTHER ==
[2021-01-05] MEDS ORDERED: MAGNESIUM HYDROX 2400MG/30ML ORAL SUSPENSION 30 ML CUP PO PRN (15:53)
[2021-01-05] MEDS ORDERED: MAG HYDROX/AL HYDROX/SIMETH 30 ML UNIT-DOSE CUP PO PRN (15:53)
[2021-01-05] MEDS ORDERED: MAGNESIUM CITRATE 300 ML BOTTLE PO PRN (15:53)
[2021-01-05] MEDS ORDERED: P-EPHED 60MG/TRIPROLIDI 2.5MG TABLET PO PRN (15:53)
[2021-01-05] MEDS ORDERED: ACETAMINOPHEN 325 MG TABLET (FP) PO PRN (15:53)
[2021-01-05] MEDS ORDERED: MENTHOL/PHENOL 1 EACH UD MM PRN (15:53)
[2021-01-05] MEDS ORDERED: guaiFENesin 200 MG/10 ML 10 ML UNIT-DOSE CUPS PO PRN (15:53)
[2021-01-05] MEDS ORDERED: LOPERAMIDE HCL 2 MG CAPSULE PO PRN (15:53)
[2021-01-05] MEDS: hydrOXYzine PAMOATE 25 MG CAPSULE (FP) PO PRN ×2 (18:06→21:07)
[2021-01-05] MEDS: HYDROCHLOROTHIAZIDE 25 MG TABLET (FP) PO SCH (18:07)
[2021-01-05] MEDS: IBUPROFEN 400 MG TABLET (FP) PO PRN (18:07)
[2021-01-05] MEDS: DOXYCYCLINE HYCLATE 100 MG CAPSULE PO SCH (20:00)
[2021-01-05] MEDS: MELATONIN 5 MG TABLETS PO SCH (21:07)
[2021-01-05] MEDS: THIAMINE HCL 100 MG TABLET (FP) PO SCH (21:07)
[2021-01-05] MEDS: TAMSULOSIN HCL 0.4 MG CAP PO SCH (21:08)
[2021-01-06] MEDS ORDERED: amLODIPine BESYLATE 10 MG TABLET (FP) PO SCH (10:00)
[2021-01-06] MEDS: ENALAPRIL MALEATE 10 MG TABLET PO SCH (10:45)
[2021-01-06] MEDS: hydrOXYzine PAMOATE 25 MG CAPSULE (FP) PO PRN (10:45)
[2021-01-06] MEDS: DOXYCYCLINE HYCLATE 100 MG CAPSULE PO SCH ×2 (10:45→17:15)
[2021-01-06] MEDS: PRENATAL VITAMINS W/ FOLIC ACID TABLET (FP) PO SCH (10:45)
[2021-01-06] MEDS: IBUPROFEN 400 MG TABLET (FP) PO PRN (10:46)
[2021-01-06] MEDS: HYDROCHLOROTHIAZIDE 25 MG TABLET (FP) PO SCH (10:46)
[2021-01-06] MEDS ORDERED: diphenhydrAMINE HCL 25 MG CAPSULE (FP) PO PRN (12:05)
[2021-01-06] MEDS ORDERED: COLLOIDAL OATMEAL 1 BAR EACH TP PRN (12:07)
[2021-01-06] MEDS: METHOCARBAMOL 500 MG TABLET PO SCH ×3 (14:46→21:31)
[2021-01-06] MEDS: NICOTINE 10 MG CARTRIDGE (INHALER) IH PRN (17:13)
[2021-01-06] MEDS: THIAMINE HCL 100 MG TABLET (FP) PO SCH (21:31)
[2021-01-06] MEDS: MELATONIN 5 MG TABLETS PO SCH (21:31)
[2021-01-06] MEDS: TAMSULOSIN HCL 0.4 MG CAP PO SCH (21:31)
[2021-01-07] MEDS: amLODIPine BESYLATE 10 MG TABLET (FP) PO SCH (07:37)
[2021-01-07] MEDS: ENALAPRIL MALEATE 10 MG TABLET PO SCH (10:01)
[2021-01-07] MEDS: METHOCARBAMOL 500 MG TABLET PO SCH ×4 (10:01→21:23)
[2021-01-07] MEDS: hydrOXYzine PAMOATE 25 MG CAPSULE (FP) PO PRN (10:02)
[2021-01-07] MEDS: HYDROCHLOROTHIAZIDE 25 MG TABLET (FP) PO SCH (10:02)
[2021-01-07] MEDS: PRENATAL VITAMINS W/ FOLIC ACID TABLET (FP) PO SCH (10:02)
[2021-01-07] MEDS: DOXYCYCLINE HYCLATE 100 MG CAPSULE PO SCH ×2 (10:02→18:05)
[2021-01-07 10:18] LABS: BASO % 0.8 % (0-2.0); EOS % 2.9 % (0-4.5); HEMATOCRIT 40.7 % (35.4-49); HEMOGLOBIN 13.9 GM/dL (11.7-16.9); LYMPH % 30.6 % (8-40); MCH 31.2 pg (25.7-33.7); MCHC 34.2 g/dl (32.0-35.9); MEAN CELL VOLUME 91.3 fl (80-96); MEAN PLT VOLUME 8.2 fl (7.5-11.1); MONO % 14.4 % (3.8-10.2); NEUT % 51.3 % (42.8-82.8); PLATELET COUNT 239 10^3/uL (134-434); RBC 4.46 M/mm3 (4.00-5.60); RDW 14.1 % (11.9-15.9)
[2021-01-07] MEDS: BUPRENORPHINE/NALOXONE 2 MG/0.5 MG FILM PACKET SL SCH (11:11)
[2021-01-07] MEDS: IBUPROFEN 400 MG TABLET (FP) PO PRN (11:11)
[2021-01-07 12:19] LABS: ALBUMIN 3.2 g/dl (3.4-5.0); BILIRUBIN,TOTAL 0.3 mg/dL (0.2-1); BLOOD UREA NITROGEN 17.3 mg/dL (7-18); TOT PROT 7.5 g/dl (6.4-8.2)
[2021-01-07] MEDS: TAMSULOSIN HCL 0.4 MG CAP PO SCH (21:23)
[2021-01-07] MEDS: THIAMINE HCL 100 MG TABLET (FP) PO SCH (21:23)
[2021-01-07] MEDS: MELATONIN 5 MG TABLETS PO SCH (21:23)
[2021-01-08] MEDS: amLODIPine BESYLATE 10 MG TABLET (FP) PO SCH (06:23)
[2021-01-08] MEDS: PRENATAL VITAMINS W/ FOLIC ACID TABLET (FP) PO SCH (10:07)
[2021-01-08] MEDS: METHOCARBAMOL 500 MG TABLET PO SCH ×4 (10:08→21:38)
[2021-01-08] MEDS: ENALAPRIL MALEATE 10 MG TABLET PO SCH (10:08)
[2021-01-08] MEDS: HYDROCHLOROTHIAZIDE 25 MG TABLET (FP) PO SCH (10:08)
[2021-01-08] MEDS: DOXYCYCLINE HYCLATE 100 MG CAPSULE PO SCH ×2 (10:08→17:17)
[2021-01-08] MEDS: BUPRENORPHINE/NALOXONE 2 MG/0.5 MG FILM PACKET SL SCH (10:10)
[2021-01-08] MEDS: BUPRENORPHINE/NALOXONE 4 MG/1 MG FILM PACKET SL SCH (17:15)
[2021-01-08] MEDS: NICOTINE 10 MG CARTRIDGE (INHALER) IH PRN (20:28)
[2021-01-08] MEDS: THIAMINE HCL 100 MG TABLET (FP) PO SCH (21:37)
[2021-01-08] MEDS: TAMSULOSIN HCL 0.4 MG CAP PO SCH (21:37)
[2021-01-08] MEDS: MELATONIN 5 MG TABLETS PO SCH (21:38)
[2021-01-09] MEDS: amLODIPine BESYLATE 10 MG TABLET (FP) PO SCH (06:48)
[2021-01-09] MEDS: HYDROCHLOROTHIAZIDE 25 MG TABLET (FP) PO SCH ×2 (06:48→10:28)
[2021-01-09] MEDS: PRENATAL VITAMINS W/ FOLIC ACID TABLET (FP) PO SCH (09:49)
[2021-01-09] MEDS: METHOCARBAMOL 500 MG TABLET PO SCH ×4 (09:50→21:03)
[2021-01-09] MEDS: hydrOXYzine PAMOATE 25 MG CAPSULE (FP) PO PRN (09:50)
[2021-01-09] MEDS: BUPRENORPHINE/NALOXONE 4 MG/1 MG FILM PACKET SL SCH ×2 (09:50→17:10)
[2021-01-09] MEDS: ENALAPRIL MALEATE 10 MG TABLET PO SCH (09:50)
[2021-01-09] MEDS: NICOTINE 10 MG CARTRIDGE (INHALER) IH PRN (09:51)
[2021-01-09] MEDS: DOXYCYCLINE HYCLATE 100 MG CAPSULE PO SCH ×2 (09:51→18:15)
[2021-01-09] MEDS: CALAMINE 8% TOPICAL LOTION 177 ML BOTTLE TP PRN (09:51)
[2021-01-09] MEDS: THIAMINE HCL 100 MG TABLET (FP) PO SCH (21:03)
[2021-01-09] MEDS: TAMSULOSIN HCL 0.4 MG CAP PO SCH (21:03)
[2021-01-09] MEDS: MELATONIN 5 MG TABLETS PO SCH (21:04)
[2021-01-10] MEDS: amLODIPine BESYLATE 10 MG TABLET (FP) PO SCH (06:06)
[2021-01-10] MEDS ORDERED: PT OWN MED DRAWER 7, Y5N ONE (08:49)
[2021-01-10] MEDS: CALAMINE 8% TOPICAL LOTION 177 ML BOTTLE TP PRN (10:32)
[2021-01-10] MEDS: ENALAPRIL MALEATE 10 MG TABLET PO SCH (10:33)
[2021-01-10] MEDS: HYDROCHLOROTHIAZIDE 25 MG TABLET (FP) PO SCH (10:33)
[2021-01-10] MEDS: PRENATAL VITAMINS W/ FOLIC ACID TABLET (FP) PO SCH (10:33)
[2021-01-10] MEDS: METHOCARBAMOL 500 MG TABLET PO SCH ×4 (10:34→21:32)
[2021-01-10] MEDS: DOXYCYCLINE HYCLATE 100 MG CAPSULE PO SCH ×2 (10:34→17:10)
[2021-01-10] MEDS: BUPRENORPHINE/NALOXONE 4 MG/1 MG FILM PACKET SL SCH ×2 (10:34→17:10)
[2021-01-10] MEDS: NICOTINE 10 MG CARTRIDGE (INHALER) IH PRN ×2 (11:54→16:37)
[2021-01-10 13:34] LABS: ALBUMIN 3.1 g/dl (3.4-5.0); BILIRUBIN,TOTAL 0.3 mg/dL (0.2-1); BLOOD UREA NITROGEN 19.6 mg/dL (7-18); CALCIUM 8.9 mg/dL (8.5-10.1); CREATININE 1.1 mg/dL (0.55-1.3); TOT PROT 7.1 g/dl (6.4-8.2)
[2021-01-10] MEDS: TAMSULOSIN HCL 0.4 MG CAP PO SCH (21:32)
[2021-01-10] MEDS: THIAMINE HCL 100 MG TABLET (FP) PO SCH (21:32)
[2021-01-10] MEDS: MELATONIN 5 MG TABLETS PO SCH (21:33)
[2021-01-11] MEDS: amLODIPine BESYLATE 10 MG TABLET (FP) PO SCH (06:40)
[2021-01-11] MEDS: BUPRENORPHINE/NALOXONE 4 MG/1 MG FILM PACKET SL SCH ×2 (10:03→16:31)
[2021-01-11] MEDS: DOXYCYCLINE HYCLATE 100 MG CAPSULE PO SCH ×2 (10:04→17:30)
[2021-01-11] MEDS: ENALAPRIL MALEATE 10 MG TABLET PO SCH (10:05)
[2021-01-11] MEDS: HYDROCHLOROTHIAZIDE 25 MG TABLET (FP) PO SCH (10:06)
[2021-01-11] MEDS: METHOCARBAMOL 500 MG TABLET PO SCH ×4 (10:06→21:08)
[2021-01-11] MEDS: PRENATAL VITAMINS W/ FOLIC ACID TABLET (FP) PO SCH (10:06)
[2021-01-11] MEDS: NICOTINE 10 MG CARTRIDGE (INHALER) IH PRN (11:04)
[2021-01-11] MEDS: THIAMINE HCL 100 MG TABLET (FP) PO SCH (21:08)
[2021-01-11] MEDS: TAMSULOSIN HCL 0.4 MG CAP PO SCH (21:08)
[2021-01-11] MEDS: MELATONIN 5 MG TABLETS PO SCH (21:08)
[2021-01-12] MEDS: amLODIPine BESYLATE 10 MG TABLET (FP) PO SCH (06:20)
[2021-01-12] MEDS: NICOTINE 10 MG CARTRIDGE (INHALER) IH PRN ×2 (08:01→19:49)
[2021-01-12] MEDS: DOXYCYCLINE HYCLATE 100 MG CAPSULE PO SCH (09:50)
[2021-01-12] MEDS: BUPRENORPHINE/NALOXONE 4 MG/1 MG FILM PACKET SL SCH ×2 (09:50→16:21)
[2021-01-12] MEDS: ENALAPRIL MALEATE 10 MG TABLET PO SCH (09:50)
[2021-01-12] MEDS: PRENATAL VITAMINS W/ FOLIC ACID TABLET (FP) PO SCH (09:50)
[2021-01-12] MEDS: METHOCARBAMOL 500 MG TABLET PO SCH ×4 (09:51→21:23)
[2021-01-12] MEDS: HYDROCHLOROTHIAZIDE 25 MG TABLET (FP) PO SCH (09:51)
[2021-01-12] MEDS: TAMSULOSIN HCL 0.4 MG CAP PO SCH (21:23)
[2021-01-12] MEDS: MELATONIN 5 MG TABLETS PO SCH (21:23)
[2021-01-12] MEDS: THIAMINE HCL 100 MG TABLET (FP) PO SCH (21:23)
[2021-01-12] MEDS: IBUPROFEN 400 MG TABLET (FP) PO PRN (21:24)
[2021-01-13] MEDS: amLODIPine BESYLATE 10 MG TABLET (FP) PO SCH (05:56)
[2021-01-13] MEDS: ENALAPRIL MALEATE 10 MG TABLET PO SCH (09:38)
[2021-01-13] MEDS: BUPRENORPHINE/NALOXONE 4 MG/1 MG FILM PACKET SL SCH ×2 (09:38→17:24)
[2021-01-13] MEDS: PRENATAL VITAMINS W/ FOLIC ACID TABLET (FP) PO SCH (09:39)
[2021-01-13] MEDS: HYDROCHLOROTHIAZIDE 25 MG TABLET (FP) PO SCH (09:39)
[2021-01-13] MEDS: METHOCARBAMOL 500 MG TABLET PO SCH ×4 (09:39→21:36)
[2021-01-13] MEDS: NICOTINE 10 MG CARTRIDGE (INHALER) IH PRN ×2 (09:40→17:35)
[2021-01-13 11:20] VITALS: TEMP 98.4
[2021-01-13] MEDS: TAMSULOSIN HCL 0.4 MG CAP PO SCH (21:36)
[2021-01-13] MEDS: MELATONIN 5 MG TABLETS PO SCH (21:37)
[2021-01-13] MEDS: THIAMINE HCL 100 MG TABLET (FP) PO SCH (21:37)
[2021-01-14] MEDS: amLODIPine BESYLATE 10 MG TABLET (FP) PO SCH (06:23)
[2021-01-14] MEDS: METHOCARBAMOL 500 MG TABLET PO SCH (09:01)
[2021-01-14] MEDS: PRENATAL VITAMINS W/ FOLIC ACID TABLET (FP) PO SCH (09:01)
[2021-01-14] MEDS: BUPRENORPHINE/NALOXONE 4 MG/1 MG FILM PACKET SL SCH (09:02)
[2021-01-14] MEDS: ENALAPRIL MALEATE 10 MG TABLET PO SCH (09:03)
[2021-01-14 09:09] VITALS: BP 151/97; PULSE 90
[2021-01-14] MEDS: HYDROCHLOROTHIAZIDE 25 MG TABLET (FP) PO SCH (09:09)
== END 2021-01-14 09:24 | disposition home or self-care (01) | DRG 772 ==
LOC: YASAS 15:31 → Y3W 15:32
PROVIDERS: ADMIT Allergy & Immunology; ATTEND Allergy & Immunology
PROC: HZ42ZZZ Group Counseling for Substance Abuse Treatment, Cognitive-Behavioral (ICD-10-PCS; principal; 2021-01-05)
DX: F11.20 Opioid dependence, uncomplicated (principal); F10.20 Alcohol dependence, uncomplicated; F14.20 Cocaine dependence, uncomplicated; F17.210 Nicotine dependence, cigarettes, uncomplicated; L23.9 Allergic contact dermatitis, unspecified cause; L29.9 Pruritus, unspecified
CPT/HCPCS: 36415; 80053; 82962; 85025; 86593; 86780

== ENCOUNTER 2021-01-26 20:22 | Inpatient (IN) | payer OTHER ==
[2021-01-26 21:03] VITALS: BMI 31.6
[2021-01-27] MEDS ORDERED: MENTHOL/PHENOL 1 EACH UD MM PRN (00:41)
[2021-01-27] MEDS ORDERED: ACETAMINOPHEN 325 MG TABLET (FP) PO PRN ×2 (00:41)
[2021-01-27] MEDS ORDERED: BISMUTH SUBSALICYLATE 524 MG/30 ML PO PRN (00:41)
[2021-01-27] MEDS ORDERED: IBUPROFEN 400 MG TABLET (FP) PO PRN (00:41)
[2021-01-27] MEDS ORDERED: ONDANSETRON *ODT* 4 MG TABLET SL PRN (00:41)
[2021-01-27] MEDS ORDERED: MAG HYDROX/AL HYDROX/SIMETH 30 ML UNIT-DOSE CUP PO PRN (00:41)
[2021-01-27] MEDS ORDERED: NICOTINE POLACRILEX 2 MG GUM BUC PRN (00:41)
[2021-01-27] MEDS ORDERED: MAGNESIUM CITRATE 300 ML BOTTLE PO PRN (00:41)
[2021-01-27] MEDS ORDERED: METHOCARBAMOL 500 MG TABLET PO PRN (00:41)
[2021-01-27] MEDS ORDERED: MAGNESIUM HYDROX 2400MG/30ML ORAL SUSPENSION 30 ML CUP PO PRN (00:41)
[2021-01-27] MEDS ORDERED: chlordiazePOXIDE HCL 25 MG CAPSULE PO PRN (00:44)
[2021-01-27] MEDS ORDERED: methaDONE HCL 10 MG TABLET (FOR DETOX USE ONLY) PO ONE (00:44)
[2021-01-27] MEDS ORDERED: methaDONE HCL 10 MG TABLET (FOR DETOX USE ONLY) ONE (00:49)
[2021-01-27] MEDS ORDERED: cloNIDine HCL 0.1 MG TABLET ONE (00:50)
[2021-01-27] MEDS: cloNIDine HCL 0.1 MG TABLET PO PRN ×3 (00:51→17:36)
[2021-01-27] MEDS: chlordiazePOXIDE HCL 25 MG CAPSULE PO SCH ×4 (06:10→22:19)
[2021-01-27] MEDS: PRENATAL VITAMINS W/ FOLIC ACID TABLET (FP) PO SCH (10:27)
[2021-01-27] MEDS ORDERED: NALOXONE (NARCAN) HCL 4 MG/0.1 ML SPRAY NS SCH (10:45)
[2021-01-27] MEDS: HYDROCHLOROTHIAZIDE 25 MG TABLET (FP) PO SCH (14:03)
[2021-01-27] MEDS: amLODIPine BESYLATE 10 MG TABLET (FP) PO SCH (14:03)
[2021-01-27 15:19] LABS: HEMATOCRIT 38.5 % (35.4-49); HEMOGLOBIN 12.9 GM/dL (11.7-16.9); MCH 30.8 pg (25.7-33.7); MCHC 33.5 g/dl (32.0-35.9); MEAN PLT VOLUME 8.1 fl (7.5-11.1); PLATELET COUNT 243 10^3/uL (134-434); RBC 4.19 M/mm3 (4.00-5.60); WHITE BLOOD COUNT 8.1 K/mm3 (4.0-10.0)
[2021-01-27 15:37] LABS: CALCIUM 8.8 mg/dL (8.5-10.1)
[2021-01-27 15:39] LABS: ALBUMIN 3.1 g/dl (3.4-5.0); BLOOD UREA NITROGEN 19.3 mg/dL (7-18)
[2021-01-27 15:42] LABS: CREATININE 1.3 mg/dL (0.55-1.3); TOT PROT 7.2 g/dl (6.4-8.2)
[2021-01-27 15:44] LABS: BILIRUBIN,TOTAL 0.3 mg/dL (0.2-1)
[2021-01-27] MEDS: TAMSULOSIN HCL 0.4 MG CAP PO SCH (22:18)
[2021-01-27] MEDS: THIAMINE HCL 100 MG TABLET (FP) PO SCH (22:19)
[2021-01-27] MEDS: MELATONIN 5 MG TABLETS PO SCH (22:19)
[2021-01-28] MEDS: chlordiazePOXIDE HCL 25 MG CAPSULE PO SCH ×4 (05:40→22:08)
[2021-01-28] MEDS: cloNIDine HCL 0.1 MG TABLET PO PRN (05:40)
[2021-01-28] MEDS ORDERED: methaDONE HCL 10 MG TABLET (FOR DETOX USE ONLY) ONE (09:37)
[2021-01-28] MEDS: ENALAPRIL MALEATE 10 MG TABLET PO SCH (10:26)
[2021-01-28] MEDS: HYDROCHLOROTHIAZIDE 25 MG TABLET (FP) PO SCH (10:26)
[2021-01-28] MEDS: amLODIPine BESYLATE 10 MG TABLET (FP) PO SCH (10:26)
[2021-01-28] MEDS: PRENATAL VITAMINS W/ FOLIC ACID TABLET (FP) PO SCH (10:26)
[2021-01-28] MEDS: TAMSULOSIN HCL 0.4 MG CAP PO SCH (21:37)
[2021-01-28] MEDS: MELATONIN 5 MG TABLETS PO SCH (21:37)
[2021-01-28] MEDS: THIAMINE HCL 100 MG TABLET (FP) PO SCH (21:38)
[2021-01-29] MEDS ORDERED: chlordiazePOXIDE HCL 10 MG CAPSULE PO PRN
[2021-01-29] MEDS: cloNIDine HCL 0.1 MG TABLET PO PRN ×3 (05:44→23:06)
[2021-01-29] MEDS: chlordiazePOXIDE HCL 10 MG CAPSULE PO SCH ×4 (05:44→22:23)
[2021-01-29] MEDS ORDERED: methaDONE HCL 10 MG TABLET (FOR DETOX USE ONLY) PO ONE (10:00)
[2021-01-29] MEDS: HYDROCHLOROTHIAZIDE 25 MG TABLET (FP) PO SCH (11:41)
[2021-01-29] MEDS: PRENATAL VITAMINS W/ FOLIC ACID TABLET (FP) PO SCH (11:42)
[2021-01-29] MEDS: amLODIPine BESYLATE 10 MG TABLET (FP) PO SCH (11:42)
[2021-01-29] MEDS: ENALAPRIL MALEATE 10 MG TABLET PO SCH (11:43)
[2021-01-29] MEDS ORDERED: LACTULOSE 20 GM/30 ML UDC (FOR ORAL USE ONLY) PO ONE (15:23)
[2021-01-29] MEDS: LACTULOSE 20 GM/30 ML UDC (FOR ORAL USE ONLY) PO SCH ×2 (17:47→22:24)
[2021-01-29] MEDS: MELATONIN 5 MG TABLETS PO SCH (22:23)
[2021-01-29] MEDS: TAMSULOSIN HCL 0.4 MG CAP PO SCH (22:24)
[2021-01-29] MEDS: THIAMINE HCL 100 MG TABLET (FP) PO SCH (22:24)
[2021-01-30] MEDS: chlordiazePOXIDE HCL 10 MG CAPSULE PO SCH ×2 (06:47→18:44)
[2021-01-30] MEDS ORDERED: methaDONE HCL 10 MG TABLET (FOR DETOX USE ONLY) ONE (09:27)
[2021-01-30] MEDS: amLODIPine BESYLATE 10 MG TABLET (FP) PO SCH (10:13)
[2021-01-30] MEDS: HYDROCHLOROTHIAZIDE 25 MG TABLET (FP) PO SCH (10:13)
[2021-01-30] MEDS: ENALAPRIL MALEATE 10 MG TABLET PO SCH (10:13)
[2021-01-30] MEDS: LACTULOSE 20 GM/30 ML UDC (FOR ORAL USE ONLY) PO SCH ×4 (10:13→22:06)
[2021-01-30] MEDS: PRENATAL VITAMINS W/ FOLIC ACID TABLET (FP) PO SCH (10:14)
[2021-01-30 12:33] LABS: CALCIUM 8.8 mg/dL (8.5-10.1)
[2021-01-30 12:34] LABS: BLOOD UREA NITROGEN 22.1 mg/dL (7-18)
[2021-01-30 12:38] LABS: BILIRUBIN,TOTAL 0.2 mg/dL (0.2-1); TOT PROT 7.3 g/dl (6.4-8.2)
[2021-01-30 12:44] LABS: HEMATOCRIT 39.4 % (35.4-49); HEMOGLOBIN 13.3 GM/dL (11.7-16.9); MCH 30.7 pg (25.7-33.7); MCHC 33.6 g/dl (32.0-35.9); MEAN CELL VOLUME 91.3 fl (80-96); MEAN PLT VOLUME 7.8 fl (7.5-11.1); PLATELET COUNT 219 10^3/uL (134-434); RBC 4.32 M/mm3 (4.00-5.60); RDW 14.1 % (11.9-15.9); WHITE BLOOD COUNT 7.4 K/mm3 (4.0-10.0)
[2021-01-30] MEDS: TAMSULOSIN HCL 0.4 MG CAP PO SCH (22:06)
[2021-01-30] MEDS: MELATONIN 5 MG TABLETS PO SCH (22:06)
[2021-01-30] MEDS: THIAMINE HCL 100 MG TABLET (FP) PO SCH (22:06)
[2021-01-31] MEDS ORDERED: chlordiazePOXIDE HCL 10 MG CAPSULE PO ONE (05:00)
[2021-01-31] MEDS ORDERED: methaDONE HCL 10 MG TABLET (FOR DETOX USE ONLY) PO ONE (10:00)
[2021-01-31] MEDS: LACTULOSE 20 GM/30 ML UDC (FOR ORAL USE ONLY) PO SCH ×4 (10:19→22:19)
[2021-01-31] MEDS: ENALAPRIL MALEATE 10 MG TABLET PO SCH (10:19)
[2021-01-31] MEDS: amLODIPine BESYLATE 10 MG TABLET (FP) PO SCH (10:20)
[2021-01-31] MEDS: HYDROCHLOROTHIAZIDE 25 MG TABLET (FP) PO SCH (10:20)
[2021-01-31] MEDS: PRENATAL VITAMINS W/ FOLIC ACID TABLET (FP) PO SCH (10:20)
[2021-01-31 10:34] LABS: INR 1.05 (0.83-1.09); PROTHROMBIN TIME (PATIENT) 11.8 SEC (9.7-13.0)
[2021-01-31] MEDS: TAMSULOSIN HCL 0.4 MG CAP PO SCH (22:19)
[2021-01-31] MEDS: THIAMINE HCL 100 MG TABLET (FP) PO SCH (22:19)
[2021-01-31] MEDS: MELATONIN 5 MG TABLETS PO SCH (22:19)
[2021-02-01 09:32] VITALS: BP 150/93; PULSE 79; TEMP 97.3
[2021-02-01] MEDS: HYDROCHLOROTHIAZIDE 25 MG TABLET (FP) PO SCH (11:08)
[2021-02-01] MEDS: LACTULOSE 20 GM/30 ML UDC (FOR ORAL USE ONLY) PO SCH (11:08)
[2021-02-01] MEDS: PRENATAL VITAMINS W/ FOLIC ACID TABLET (FP) PO SCH (11:09)
[2021-02-01] MEDS: ENALAPRIL MALEATE 10 MG TABLET PO SCH (11:09)
[2021-02-01] MEDS: amLODIPine BESYLATE 10 MG TABLET (FP) PO SCH (11:09)
== END 2021-02-01 11:12 | disposition home or self-care (01) | DRG 773 ==
LOC: YASAS 20:22 → Y3N 01-27 00:59
PROVIDERS: ADMIT Allergy & Immunology; ATTEND Allergy & Immunology
PROC: HZ2ZZZZ Detoxification Services for Substance Abuse Treatment (ICD-10-PCS; principal; 2021-01-27)
DX: F11.23 Opioid dependence with withdrawal (principal); F10.230 Alcohol dependence with withdrawal, uncomplicated; F14.20 Cocaine dependence, uncomplicated; F17.210 Nicotine dependence, cigarettes, uncomplicated; I10 Essential (primary) hypertension; N40.1 Benign prostatic hyperplasia with lower urinary tract symptoms; R39.11 Hesitancy of micturition; Z86.19 Personal history of other infectious and parasitic diseases
CPT/HCPCS: 36415; 80053; 82140; 85027; 85610; 86593; 86780; C9803; J0735; U0003; U0005

== ENCOUNTER 2021-02-11 15:36 | Emergency (ER) | payer OTHER ==
[2021-02-11 16:06] VITALS: TEMP 98; BMI 30.7
[2021-02-11 20:05] VITALS: BP 150/98; PULSE 78
[2021-02-11] MEDS ORDERED: cloNIDine HCL 0.1 MG TABLET PO ONE (20:07)
[2021-02-11] MEDS ORDERED: amLODIPine BESYLATE 2.5 MG TABLET (FP) PO ONE (20:08)
[2021-02-11] MEDS ORDERED: amLODIPine BESYLATE 2.5 MG TABLET (FP) ONE (20:11)
[2021-02-11] MEDS ORDERED: cloNIDine HCL 0.1 MG TABLET ONE (20:12)
== END 2021-02-11 23:00 | disposition home or self-care (01) ==
LOC: JER 15:36
DX: I10 Essential (primary) hypertension (principal); F11.20 Opioid dependence, uncomplicated
CPT/HCPCS: 93005; 93010; 99283-25; J0735

== ENCOUNTER 2021-02-12 07:56 | Inpatient (IN) | payer OTHER ==
[2021-02-12 09:27] VITALS: BMI 31.3
[2021-02-12] MEDS ORDERED: METHOCARBAMOL 500 MG TABLET PO PRN (21:49)
[2021-02-12] MEDS ORDERED: MAGNESIUM HYDROX 2400MG/30ML ORAL SUSPENSION 30 ML CUP PO PRN (21:49)
[2021-02-12] MEDS ORDERED: NICOTINE POLACRILEX 2 MG GUM BUC PRN (21:49)
[2021-02-12] MEDS ORDERED: hydrOXYzine PAMOATE 25 MG CAPSULE (FP) PO PRN (21:49)
[2021-02-12] MEDS ORDERED: ONDANSETRON *ODT* 4 MG TABLET SL PRN (21:49)
[2021-02-12] MEDS ORDERED: P-EPHED 60MG/TRIPROLIDI 2.5MG TABLET PO PRN (21:49)
[2021-02-12] MEDS ORDERED: NALOXONE HCL 0.4 MG/ML VIAL IM PRN (21:49)
[2021-02-12] MEDS ORDERED: ACETAMINOPHEN 325 MG TABLET (FP) PO PRN ×2 (21:49)
[2021-02-12] MEDS ORDERED: cloNIDine HCL 0.1 MG TABLET PO ONE (21:49)
[2021-02-12] MEDS ORDERED: DICYCLOMINE HCL 10 MG CAPSULE PO PRN (21:49)
[2021-02-12] MEDS ORDERED: IBUPROFEN 400 MG TABLET (FP) PO PRN (21:49)
[2021-02-12] MEDS ORDERED: MAG HYDROX/AL HYDROX/SIMETH 30 ML UNIT-DOSE CUP PO PRN (21:49)
[2021-02-12] MEDS ORDERED: MENTHOL/PHENOL 1 EACH UD MM PRN (21:49)
[2021-02-12] MEDS ORDERED: guaiFENesin 200 MG/10 ML 10 ML UNIT-DOSE CUPS PO PRN (21:49)
[2021-02-12] MEDS ORDERED: MAGNESIUM CITRATE 300 ML BOTTLE PO PRN (21:49)
[2021-02-12] MEDS ORDERED: BISMUTH SUBSALICYLATE 524 MG/30 ML PO PRN (21:49)
[2021-02-12] MEDS ORDERED: NALOXONE (NARCAN) HCL 4 MG/0.1 ML SPRAY NS PRN (21:49)
[2021-02-12] MEDS ORDERED: cloNIDine HCL 0.1 MG TABLET ONE (21:58)
[2021-02-13] MEDS: MELATONIN 5 MG TABLETS PO SCH ×2 (00:28→23:01)
[2021-02-13] MEDS: THIAMINE HCL 100 MG TABLET (FP) PO SCH ×2 (00:28→23:01)
[2021-02-13 10:53] LABS: CALCIUM 9.2 mg/dL (8.5-10.1)
[2021-02-13 10:55] LABS: ALBUMIN 3.3 g/dl (3.4-5.0); BLOOD UREA NITROGEN 19.8 mg/dL (7-18)
[2021-02-13 10:58] LABS: CREATININE 1.1 mg/dL (0.55-1.3)
[2021-02-13 10:59] LABS: BILIRUBIN,TOTAL 0.8 mg/dL (0.2-1); TOT PROT 7.4 g/dl (6.4-8.2)
[2021-02-13 11:03] LABS: HEMATOCRIT 38.2 % (35.4-49); HEMOGLOBIN 12.9 GM/dL (11.7-16.9); MCH 30.6 pg (25.7-33.7); MCHC 33.8 g/dl (32.0-35.9); MEAN CELL VOLUME 90.6 fl (80-96); MEAN PLT VOLUME 7.8 fl (7.5-11.1); PLATELET COUNT 273 10^3/uL (134-434); RBC 4.22 M/mm3 (4.00-5.60); RDW 13.9 % (11.9-15.9); WHITE BLOOD COUNT 6.1 K/mm3 (4.0-10.0)
[2021-02-13] MEDS: HYDROCHLOROTHIAZIDE 25 MG TABLET (FP) PO SCH (11:08)
[2021-02-13] MEDS: TAMSULOSIN HCL 0.4 MG CAP PO SCH (11:08)
[2021-02-13] MEDS: ENALAPRIL MALEATE 10 MG TABLET PO SCH (11:08)
[2021-02-13] MEDS: NICOTINE 14 MG/24 HOURS TOPICAL PATCH TD SCH (11:09)
[2021-02-13] MEDS: PRENATAL VITAMINS W/ FOLIC ACID TABLET (FP) PO SCH (11:09)
[2021-02-13] MEDS: amLODIPine BESYLATE 10 MG TABLET (FP) PO SCH (11:10)
[2021-02-14 09:10] VITALS: TEMP 97.6
[2021-02-14] MEDS ORDERED: diazePAM 5 MG TABLET PO PRN (11:09)
[2021-02-14] MEDS: TAMSULOSIN HCL 0.4 MG CAP PO SCH (11:36)
[2021-02-14] MEDS: HYDROCHLOROTHIAZIDE 25 MG TABLET (FP) PO SCH (11:36)
[2021-02-14] MEDS: amLODIPine BESYLATE 10 MG TABLET (FP) PO SCH (11:36)
[2021-02-14] MEDS: PRENATAL VITAMINS W/ FOLIC ACID TABLET (FP) PO SCH (11:36)
[2021-02-14] MEDS: ENALAPRIL MALEATE 10 MG TABLET PO SCH (11:36)
[2021-02-14] MEDS: NICOTINE 14 MG/24 HOURS TOPICAL PATCH TD SCH (11:36)
[2021-02-14 13:07] VITALS: BP 147/90; PULSE 88
== END 2021-02-14 12:43 | disposition left against medical advice (07) | DRG 770 ==
LOC: YASAS 07:56 → UNDOADMIN 23:29 → Y3N 23:29
PROVIDERS: ADMIT Allergy & Immunology; ATTEND Allergy & Immunology
PROC: HZ2ZZZZ Detoxification Services for Substance Abuse Treatment (ICD-10-PCS; principal; 2021-02-12)
DX: F11.23 Opioid dependence with withdrawal (principal); F10.230 Alcohol dependence with withdrawal, uncomplicated; F14.20 Cocaine dependence, uncomplicated; F17.210 Nicotine dependence, cigarettes, uncomplicated; U07.1 COVID-19; I10 Essential (primary) hypertension; N40.1 Benign prostatic hyperplasia with lower urinary tract symptoms; R39.11 Hesitancy of micturition; Z86.19 Personal history of other infectious and parasitic diseases; Z59.00 Homelessness unspecified; Z56.0 Unemployment, unspecified
CPT/HCPCS: 36415; 80053; 84484; 85025; 85027; 86593; 86780; 93005; 93010; 99281-25; C9803-CS; U0003; U0005

== ENCOUNTER 2021-02-23 15:14 | Inpatient (IN) | payer OTHER ==
[2021-02-23 18:19] VITALS: BMI 31.3
[2021-02-23] MEDS ORDERED: cloNIDine HCL 0.1 MG TABLET PO ONE (19:08)
[2021-02-23] MEDS ORDERED: MAG HYDROX/AL HYDROX/SIMETH 30 ML UNIT-DOSE CUP PO PRN (19:14)
[2021-02-23] MEDS ORDERED: BISMUTH SUBSALICYLATE 524 MG/30 ML PO PRN (19:14)
[2021-02-23] MEDS ORDERED: MAGNESIUM HYDROX 2400MG/30ML ORAL SUSPENSION 30 ML CUP PO PRN (19:14)
[2021-02-23] MEDS ORDERED: MAGNESIUM CITRATE 300 ML BOTTLE PO PRN (19:14)
[2021-02-23] MEDS ORDERED: methaDONE HCL 10 MG TABLET (FOR DETOX USE ONLY) PO ONE (19:14)
[2021-02-23] MEDS ORDERED: ACETAMINOPHEN 325 MG TABLET (FP) PO PRN ×2 (19:14)
[2021-02-23] MEDS ORDERED: clonazePAM 0.5 MG ODT TABLETS SL PRN (19:14)
[2021-02-23] MEDS ORDERED: NICOTINE POLACRILEX 2 MG GUM BUC PRN (19:14)
[2021-02-23] MEDS ORDERED: ONDANSETRON *ODT* 4 MG TABLET SL PRN (19:14)
[2021-02-23] MEDS ORDERED: MENTHOL/PHENOL 1 EACH UD MM PRN (19:14)
[2021-02-23] MEDS ORDERED: IBUPROFEN 400 MG TABLET (FP) PO PRN (19:14)
[2021-02-23] MEDS ORDERED: cloNIDine HCL 0.1 MG TABLET ONE (19:15)
[2021-02-23] MEDS: hydrOXYzine PAMOATE 25 MG CAPSULE (FP) PO PRN (20:10)
[2021-02-23] MEDS ORDERED: HYDROCHLOROTHIAZIDE 25 MG TABLET (FP) PO ONE ×2 (21:25→21:30)
[2021-02-23] MEDS ORDERED: amLODIPine BESYLATE 10 MG TABLET (FP) PO ONE (21:29)
[2021-02-23] MEDS: MELATONIN 5 MG TABLETS PO SCH (21:55)
[2021-02-23] MEDS: THIAMINE HCL 100 MG TABLET (FP) PO SCH (21:55)
[2021-02-23] MEDS: TAMSULOSIN HCL 0.4 MG CAP PO SCH (21:55)
[2021-02-24] MEDS ORDERED: methaDONE HCL 10 MG TABLET (FOR DETOX USE ONLY) ONE (09:20)
[2021-02-24] MEDS: PRENATAL VITAMINS W/ FOLIC ACID TABLET (FP) PO SCH (09:45)
[2021-02-24] MEDS: HYDROCHLOROTHIAZIDE 25 MG TABLET (FP) PO SCH (09:45)
[2021-02-24] MEDS: amLODIPine BESYLATE 10 MG TABLET (FP) PO SCH (09:45)
[2021-02-24] MEDS: hydrOXYzine PAMOATE 25 MG CAPSULE (FP) PO PRN ×2 (09:45→18:25)
[2021-02-24] MEDS: METHOCARBAMOL 500 MG TABLET PO PRN (09:45)
[2021-02-24] MEDS: ENALAPRIL MALEATE 10 MG TABLET PO SCH (09:45)
[2021-02-24] MEDS ORDERED: PATIENT'S OWN MEDICATION (NON-FORMULARY) (Enalapril Maleate [Enalapril Maleate] 20 MG Tabl PO SCH (10:00)
[2021-02-24 10:31] LABS: HEMOGLOBIN 12.4 GM/dL (11.7-16.9); MCH 31.1 pg (25.7-33.7); MCHC 34.6 g/dl (32.0-35.9); MEAN CELL VOLUME 89.8 fl (80-96); MEAN PLT VOLUME 7.7 fl (7.5-11.1); PLATELET COUNT 236 10^3/uL (134-434); RDW 13.9 % (11.9-15.9)
[2021-02-24 10:34] LABS: ALBUMIN 3.1 g/dl (3.4-5.0); BLOOD UREA NITROGEN 17.1 mg/dL (7-18); CALCIUM 8.7 mg/dL (8.5-10.1)
[2021-02-24 10:37] LABS: CREATININE 1.1 mg/dL (0.55-1.3)
[2021-02-24 10:39] LABS: BILIRUBIN,TOTAL 0.5 mg/dL (0.2-1); TOT PROT 6.8 g/dl (6.4-8.2)
[2021-02-24] MEDS ORDERED: diazePAM 5 MG TABLET PO PRN (14:20)
[2021-02-24] MEDS: cloNIDine HCL 0.1 MG TABLET PO PRN (18:25)
[2021-02-24] MEDS: diazePAM 5 MG TABLET PO SCH ×2 (18:25→22:22)
[2021-02-24] MEDS: THIAMINE HCL 100 MG TABLET (FP) PO SCH (22:22)
[2021-02-24] MEDS: MELATONIN 5 MG TABLETS PO SCH (22:22)
[2021-02-24] MEDS: TAMSULOSIN HCL 0.4 MG CAP PO SCH (22:22)
[2021-02-25] MEDS: diazePAM 5 MG TABLET PO SCH ×4 (06:50→22:41)
[2021-02-25] MEDS ORDERED: methaDONE HCL 10 MG TABLET (FOR DETOX USE ONLY) PO ONE (10:00)
[2021-02-25] MEDS: amLODIPine BESYLATE 10 MG TABLET (FP) PO SCH (11:10)
[2021-02-25] MEDS: cloNIDine HCL 0.1 MG TABLET PO PRN (11:10)
[2021-02-25] MEDS: HYDROCHLOROTHIAZIDE 25 MG TABLET (FP) PO SCH (11:10)
[2021-02-25] MEDS: hydrOXYzine PAMOATE 25 MG CAPSULE (FP) PO PRN (11:10)
[2021-02-25] MEDS: ENALAPRIL MALEATE 10 MG TABLET PO SCH (11:11)
[2021-02-25] MEDS: METHOCARBAMOL 500 MG TABLET PO PRN (11:11)
[2021-02-25] MEDS: PRENATAL VITAMINS W/ FOLIC ACID TABLET (FP) PO SCH (11:12)
[2021-02-25] MEDS: THIAMINE HCL 100 MG TABLET (FP) PO SCH (22:40)
[2021-02-25] MEDS: TAMSULOSIN HCL 0.4 MG CAP PO SCH (22:40)
[2021-02-25] MEDS: MELATONIN 5 MG TABLETS PO SCH (22:40)
[2021-02-26] MEDS: diazePAM 5 MG TABLET PO SCH ×3 (06:33→21:07)
[2021-02-26] MEDS ORDERED: methaDONE HCL 10 MG TABLET (FOR DETOX USE ONLY) ONE (10:02)
[2021-02-26] MEDS: amLODIPine BESYLATE 10 MG TABLET (FP) PO SCH (10:24)
[2021-02-26] MEDS: ENALAPRIL MALEATE 10 MG TABLET PO SCH ×2 (10:24→21:06)
[2021-02-26] MEDS: HYDROCHLOROTHIAZIDE 25 MG TABLET (FP) PO SCH (10:25)
[2021-02-26] MEDS: METHOCARBAMOL 500 MG TABLET PO PRN (10:25)
[2021-02-26] MEDS: PRENATAL VITAMINS W/ FOLIC ACID TABLET (FP) PO SCH (10:26)
[2021-02-26] MEDS: TAMSULOSIN HCL 0.4 MG CAP PO SCH (21:05)
[2021-02-26] MEDS: THIAMINE HCL 100 MG TABLET (FP) PO SCH (21:06)
[2021-02-26] MEDS: MELATONIN 5 MG TABLETS PO SCH (21:06)
[2021-02-27] MEDS: diazePAM 5 MG TABLET PO SCH ×2 (06:38→18:05)
[2021-02-27] MEDS ORDERED: methaDONE HCL 10 MG TABLET (FOR DETOX USE ONLY) PO ONE (10:00)
[2021-02-27] MEDS: PRENATAL VITAMINS W/ FOLIC ACID TABLET (FP) PO SCH (12:05)
[2021-02-27] MEDS: amLODIPine BESYLATE 10 MG TABLET (FP) PO SCH (12:06)
[2021-02-27] MEDS: HYDROCHLOROTHIAZIDE 25 MG TABLET (FP) PO SCH (12:06)
[2021-02-27] MEDS: ENALAPRIL MALEATE 10 MG TABLET PO SCH ×2 (12:06→22:27)
[2021-02-27] MEDS: TAMSULOSIN HCL 0.4 MG CAP PO SCH (22:27)
[2021-02-27] MEDS: MELATONIN 5 MG TABLETS PO SCH (22:27)
[2021-02-27] MEDS: THIAMINE HCL 100 MG TABLET (FP) PO SCH (22:27)
[2021-02-28] MEDS ORDERED: diazePAM 5 MG TABLET PO ONE (06:00)
[2021-02-28] MEDS: HYDROCHLOROTHIAZIDE 25 MG TABLET (FP) PO SCH (10:52)
[2021-02-28] MEDS: PRENATAL VITAMINS W/ FOLIC ACID TABLET (FP) PO SCH (10:52)
[2021-02-28] MEDS: amLODIPine BESYLATE 10 MG TABLET (FP) PO SCH (10:52)
[2021-02-28] MEDS: ENALAPRIL MALEATE 10 MG TABLET PO SCH (10:52)
[2021-02-28] MEDS ORDERED: cloNIDine HCL 0.1 MG TABLET PO SCH ×2 (11:00→18:55)
[2021-02-28 13:07] VITALS: TEMP 97.1
[2021-02-28] MEDS ORDERED: cloNIDine HCL 0.1 MG TABLET PO ONE (19:06)
[2021-02-28 19:45] VITALS: BP 166/99; PULSE 74
== END 2021-02-28 19:50 | disposition other institution (70) | DRG 773 ==
LOC: YASAS 15:14 → Y3N 19:25
PROVIDERS: ADMIT Allergy & Immunology; ATTEND Allergy & Immunology
PROC: HZ2ZZZZ Detoxification Services for Substance Abuse Treatment (ICD-10-PCS; principal; 2021-02-23)
DX: F11.23 Opioid dependence with withdrawal (principal); F10.230 Alcohol dependence with withdrawal, uncomplicated; F14.20 Cocaine dependence, uncomplicated; F17.210 Nicotine dependence, cigarettes, uncomplicated; A53.0 Latent syphilis, unspecified as early or late; I10 Essential (primary) hypertension; N40.1 Benign prostatic hyperplasia with lower urinary tract symptoms; R35.1 Nocturia; E66.9 Obesity, unspecified; Z68.31 Body mass index [BMI] 31.0-31.9, adult; Z86.19 Personal history of other infectious and parasitic diseases
CPT/HCPCS: 36415; 80053; 85027; 86593; 86780; C9803; J0735; Q0162; U0003; U0005

== ENCOUNTER 2021-02-28 20:15 | Inpatient (IN) | payer OTHER ==
[2021-02-28] MEDS ORDERED: P-EPHED 60MG/TRIPROLIDI 2.5MG TABLET PO PRN (21:30)
[2021-02-28] MEDS ORDERED: MAGNESIUM CITRATE 300 ML BOTTLE PO PRN (21:30)
[2021-02-28] MEDS ORDERED: MAG HYDROX/AL HYDROX/SIMETH 30 ML UNIT-DOSE CUP PO PRN (21:30)
[2021-02-28] MEDS ORDERED: guaiFENesin 200 MG/10 ML 10 ML UNIT-DOSE CUPS PO PRN (21:30)
[2021-02-28] MEDS ORDERED: LOPERAMIDE HCL 2 MG CAPSULE PO PRN (21:30)
[2021-02-28] MEDS ORDERED: MENTHOL/PHENOL 1 EACH UD MM PRN (21:30)
[2021-02-28] MEDS ORDERED: IBUPROFEN 400 MG TABLET (FP) PO PRN (21:30)
[2021-02-28] MEDS: THIAMINE HCL 100 MG TABLET (FP) PO SCH (22:22)
[2021-02-28] MEDS: MELATONIN 5 MG TABLETS PO SCH (22:22)
[2021-02-28] MEDS: hydrOXYzine PAMOATE 25 MG CAPSULE (FP) PO SCH (22:22)
[2021-03-01] MEDS: hydrOXYzine PAMOATE 25 MG CAPSULE (FP) PO SCH ×5 (06:19→21:09)
[2021-03-01] MEDS: PRENATAL VITAMINS W/ FOLIC ACID TABLET (FP) PO SCH (10:52)
[2021-03-01] MEDS: amLODIPine BESYLATE 10 MG TABLET (FP) PO SCH (10:52)
[2021-03-01] MEDS: ENALAPRIL MALEATE 10 MG TABLET PO SCH (10:52)
[2021-03-01] MEDS: HYDROCHLOROTHIAZIDE 25 MG TABLET (FP) PO SCH (10:52)
[2021-03-01] MEDS: NICOTINE 7 MG/24 HOURS TOPICAL PATCH TD SCH (10:53)
[2021-03-01] MEDS: THIAMINE HCL 100 MG TABLET (FP) PO SCH (21:09)
[2021-03-01] MEDS: MELATONIN 5 MG TABLETS PO SCH (21:09)
[2021-03-02] MEDS: hydrOXYzine PAMOATE 25 MG CAPSULE (FP) PO SCH ×5 (06:33→22:05)
[2021-03-02] MEDS: amLODIPine BESYLATE 10 MG TABLET (FP) PO SCH (10:35)
[2021-03-02] MEDS: NICOTINE 7 MG/24 HOURS TOPICAL PATCH TD SCH (10:35)
[2021-03-02] MEDS: HYDROCHLOROTHIAZIDE 25 MG TABLET (FP) PO SCH (10:35)
[2021-03-02] MEDS: ENALAPRIL MALEATE 10 MG TABLET PO SCH (10:35)
[2021-03-02] MEDS: PRENATAL VITAMINS W/ FOLIC ACID TABLET (FP) PO SCH (10:35)
[2021-03-02] MEDS: THIAMINE HCL 100 MG TABLET (FP) PO SCH (22:05)
[2021-03-02] MEDS: MELATONIN 5 MG TABLETS PO SCH (22:05)
[2021-03-03] MEDS: hydrOXYzine PAMOATE 25 MG CAPSULE (FP) PO SCH ×5 (06:54→21:26)
[2021-03-03] MEDS: ENALAPRIL MALEATE 10 MG TABLET PO SCH (10:56)
[2021-03-03] MEDS: amLODIPine BESYLATE 10 MG TABLET (FP) PO SCH (10:56)
[2021-03-03] MEDS: PRENATAL VITAMINS W/ FOLIC ACID TABLET (FP) PO SCH (10:56)
[2021-03-03] MEDS: HYDROCHLOROTHIAZIDE 25 MG TABLET (FP) PO SCH (10:57)
[2021-03-03] MEDS: NICOTINE 7 MG/24 HOURS TOPICAL PATCH TD SCH (10:57)
[2021-03-03] MEDS: NICOTINE 10 MG CARTRIDGE (INHALER) IH PRN (10:57)
[2021-03-03] MEDS: BUPRENORPHINE/NALOXONE 2 MG/0.5 MG FILM PACKET SL SCH (14:45)
[2021-03-03] MEDS: SUVOREXANT 10 MG TABLET PO PRN (21:25)
[2021-03-03] MEDS: MELATONIN 5 MG TABLETS PO SCH (21:26)
[2021-03-03] MEDS: THIAMINE HCL 100 MG TABLET (FP) PO SCH (21:26)
[2021-03-03] MEDS: TAMSULOSIN HCL 0.4 MG CAP PO SCH (21:26)
[2021-03-04] MEDS: hydrOXYzine PAMOATE 25 MG CAPSULE (FP) PO SCH ×5 (07:12→21:18)
[2021-03-04] MEDS: NICOTINE 7 MG/24 HOURS TOPICAL PATCH TD SCH (10:58)
[2021-03-04] MEDS: amLODIPine BESYLATE 10 MG TABLET (FP) PO SCH (10:58)
[2021-03-04] MEDS: PRENATAL VITAMINS W/ FOLIC ACID TABLET (FP) PO SCH (10:58)
[2021-03-04] MEDS: HYDROCHLOROTHIAZIDE 25 MG TABLET (FP) PO SCH (10:58)
[2021-03-04] MEDS: BUPRENORPHINE/NALOXONE 2 MG/0.5 MG FILM PACKET SL SCH (10:58)
[2021-03-04] MEDS: ENALAPRIL MALEATE 10 MG TABLET PO SCH (12:42)
[2021-03-04] MEDS: NICOTINE 10 MG CARTRIDGE (INHALER) IH PRN (18:09)
[2021-03-04] MEDS: THIAMINE HCL 100 MG TABLET (FP) PO SCH (21:18)
[2021-03-04] MEDS: TAMSULOSIN HCL 0.4 MG CAP PO SCH (21:18)
[2021-03-04] MEDS: MELATONIN 5 MG TABLETS PO SCH (21:19)
[2021-03-04] MEDS: SUVOREXANT 10 MG TABLET PO PRN (21:20)
[2021-03-05] MEDS: hydrOXYzine PAMOATE 25 MG CAPSULE (FP) PO SCH ×5 (06:21→21:44)
[2021-03-05] MEDS: HYDROCHLOROTHIAZIDE 25 MG TABLET (FP) PO SCH (10:56)
[2021-03-05] MEDS: PRENATAL VITAMINS W/ FOLIC ACID TABLET (FP) PO SCH (10:57)
[2021-03-05] MEDS: ENALAPRIL MALEATE 10 MG TABLET PO SCH (10:57)
[2021-03-05] MEDS: NICOTINE 7 MG/24 HOURS TOPICAL PATCH TD SCH (10:58)
[2021-03-05] MEDS: BUPRENORPHINE/NALOXONE 2 MG/0.5 MG FILM PACKET SL SCH (10:58)
[2021-03-05] MEDS: amLODIPine BESYLATE 10 MG TABLET (FP) PO SCH (10:58)
[2021-03-05] MEDS: NICOTINE 10 MG CARTRIDGE (INHALER) IH PRN ×2 (10:59→20:49)
[2021-03-05] MEDS ORDERED: BUPRENORPHINE/NALOXONE 4 MG/1 MG FILM PACKET SL ONE (17:00)
[2021-03-05] MEDS: THIAMINE HCL 100 MG TABLET (FP) PO SCH (21:44)
[2021-03-05] MEDS: MELATONIN 5 MG TABLETS PO SCH (21:44)
[2021-03-05] MEDS: TAMSULOSIN HCL 0.4 MG CAP PO SCH (21:44)
[2021-03-05] MEDS: SUVOREXANT 10 MG TABLET PO PRN (21:45)
[2021-03-06] MEDS: hydrOXYzine PAMOATE 25 MG CAPSULE (FP) PO SCH ×5 (07:01→21:16)
[2021-03-06] MEDS: NICOTINE 7 MG/24 HOURS TOPICAL PATCH TD SCH (11:01)
[2021-03-06] MEDS: PRENATAL VITAMINS W/ FOLIC ACID TABLET (FP) PO SCH (11:01)
[2021-03-06] MEDS: HYDROCHLOROTHIAZIDE 25 MG TABLET (FP) PO SCH (11:01)
[2021-03-06] MEDS: ENALAPRIL MALEATE 10 MG TABLET PO SCH (11:02)
[2021-03-06] MEDS: amLODIPine BESYLATE 10 MG TABLET (FP) PO SCH (11:02)
[2021-03-06] MEDS: BUPRENORPHINE/NALOXONE 8 MG/2 MG FILM PACKET SL SCH ×2 (11:05→18:13)
[2021-03-06] MEDS: NICOTINE 10 MG CARTRIDGE (INHALER) IH PRN (12:37)
[2021-03-06] MEDS: MAGNESIUM HYDROX 2400MG/30ML ORAL SUSPENSION 30 ML CUP PO PRN (13:39)
[2021-03-06] MEDS: TAMSULOSIN HCL 0.4 MG CAP PO SCH (21:16)
[2021-03-06] MEDS: MELATONIN 5 MG TABLETS PO SCH (21:16)
[2021-03-06] MEDS: SUVOREXANT 10 MG TABLET PO PRN (21:16)
[2021-03-06] MEDS: THIAMINE HCL 100 MG TABLET (FP) PO SCH (21:16)
[2021-03-07] MEDS: HYDROCHLOROTHIAZIDE 25 MG TABLET (FP) PO SCH (07:14)
[2021-03-07] MEDS: hydrOXYzine PAMOATE 25 MG CAPSULE (FP) PO SCH ×5 (07:14→21:17)
[2021-03-07] MEDS: ENALAPRIL MALEATE 10 MG TABLET PO SCH (10:30)
[2021-03-07] MEDS: amLODIPine BESYLATE 10 MG TABLET (FP) PO SCH (10:30)
[2021-03-07] MEDS: PRENATAL VITAMINS W/ FOLIC ACID TABLET (FP) PO SCH (10:30)
[2021-03-07] MEDS: BUPRENORPHINE/NALOXONE 8 MG/2 MG FILM PACKET SL SCH ×2 (10:30→19:40)
[2021-03-07] MEDS: NICOTINE 7 MG/24 HOURS TOPICAL PATCH TD SCH (10:31)
[2021-03-07] MEDS: NICOTINE 10 MG CARTRIDGE (INHALER) IH PRN (15:54)
[2021-03-07] MEDS: TAMSULOSIN HCL 0.4 MG CAP PO SCH (21:16)
[2021-03-07] MEDS: SUVOREXANT 10 MG TABLET PO PRN (21:16)
[2021-03-07] MEDS: THIAMINE HCL 100 MG TABLET (FP) PO SCH (21:16)
[2021-03-07] MEDS: MELATONIN 5 MG TABLETS PO SCH (21:18)
[2021-03-08] MEDS: HYDROCHLOROTHIAZIDE 25 MG TABLET (FP) PO SCH (06:54)
[2021-03-08] MEDS: hydrOXYzine PAMOATE 25 MG CAPSULE (FP) PO SCH ×5 (06:54→22:10)
[2021-03-08] MEDS: NICOTINE 7 MG/24 HOURS TOPICAL PATCH TD SCH (10:30)
[2021-03-08] MEDS: NICOTINE 10 MG CARTRIDGE (INHALER) IH PRN (10:30)
[2021-03-08] MEDS: PRENATAL VITAMINS W/ FOLIC ACID TABLET (FP) PO SCH (10:30)
[2021-03-08] MEDS: amLODIPine BESYLATE 10 MG TABLET (FP) PO SCH (10:31)
[2021-03-08] MEDS: ENALAPRIL MALEATE 10 MG TABLET PO SCH (10:31)
[2021-03-08] MEDS: BUPRENORPHINE/NALOXONE 8 MG/2 MG FILM PACKET SL SCH ×2 (10:31→17:52)
[2021-03-08] MEDS: MELATONIN 5 MG TABLETS PO SCH (22:10)
[2021-03-08] MEDS: THIAMINE HCL 100 MG TABLET (FP) PO SCH (22:10)
[2021-03-08] MEDS: TAMSULOSIN HCL 0.4 MG CAP PO SCH (22:10)
[2021-03-08] MEDS: SUVOREXANT 10 MG TABLET PO PRN (22:10)
[2021-03-09] MEDS: hydrOXYzine PAMOATE 25 MG CAPSULE (FP) PO SCH ×5 (06:59→21:44)
[2021-03-09] MEDS: HYDROCHLOROTHIAZIDE 25 MG TABLET (FP) PO SCH (06:59)
[2021-03-09] MEDS: NICOTINE 10 MG CARTRIDGE (INHALER) IH PRN ×2 (07:21→18:02)
[2021-03-09] MEDS: PRENATAL VITAMINS W/ FOLIC ACID TABLET (FP) PO SCH (10:09)
[2021-03-09] MEDS: amLODIPine BESYLATE 10 MG TABLET (FP) PO SCH (10:09)
[2021-03-09] MEDS: ENALAPRIL MALEATE 10 MG TABLET PO SCH (10:09)
[2021-03-09] MEDS: NICOTINE 7 MG/24 HOURS TOPICAL PATCH TD SCH (10:10)
[2021-03-09] MEDS: BUPRENORPHINE/NALOXONE 8 MG/2 MG FILM PACKET SL SCH ×2 (10:11→17:55)
[2021-03-09] MEDS: SUVOREXANT 10 MG TABLET PO PRN (21:44)
[2021-03-09] MEDS: THIAMINE HCL 100 MG TABLET (FP) PO SCH (21:44)
[2021-03-09] MEDS: TAMSULOSIN HCL 0.4 MG CAP PO SCH (21:44)
[2021-03-09] MEDS: MELATONIN 5 MG TABLETS PO SCH (21:45)
[2021-03-09] MEDS ORDERED: SUVOREXANT 10 MG TABLET PO PRN (22:00)
[2021-03-10] MEDS: hydrOXYzine PAMOATE 25 MG CAPSULE (FP) PO SCH ×2 (06:46→10:42)
[2021-03-10] MEDS: HYDROCHLOROTHIAZIDE 25 MG TABLET (FP) PO SCH (06:46)
[2021-03-10] MEDS: NICOTINE 7 MG/24 HOURS TOPICAL PATCH TD SCH (10:41)
[2021-03-10] MEDS: NICOTINE 10 MG CARTRIDGE (INHALER) IH PRN (10:41)
[2021-03-10] MEDS: PRENATAL VITAMINS W/ FOLIC ACID TABLET (FP) PO SCH (10:42)
[2021-03-10] MEDS: amLODIPine BESYLATE 10 MG TABLET (FP) PO SCH (10:42)
[2021-03-10] MEDS: BUPRENORPHINE/NALOXONE 8 MG/2 MG FILM PACKET SL SCH ×2 (10:42→18:26)
[2021-03-10] MEDS: ENALAPRIL MALEATE 10 MG TABLET PO SCH (10:43)
[2021-03-10] MEDS: THIAMINE HCL 100 MG TABLET (FP) PO SCH (21:50)
[2021-03-10] MEDS: TAMSULOSIN HCL 0.4 MG CAP PO SCH (21:50)
[2021-03-10] MEDS: MELATONIN 5 MG TABLETS PO SCH (21:51)
[2021-03-11] MEDS: HYDROCHLOROTHIAZIDE 25 MG TABLET (FP) PO SCH (06:51)
[2021-03-11] MEDS: PRENATAL VITAMINS W/ FOLIC ACID TABLET (FP) PO SCH (09:51)
[2021-03-11] MEDS: ENALAPRIL MALEATE 10 MG TABLET PO SCH (09:51)
[2021-03-11] MEDS: amLODIPine BESYLATE 10 MG TABLET (FP) PO SCH (09:52)
[2021-03-11] MEDS: BUPRENORPHINE/NALOXONE 8 MG/2 MG FILM PACKET SL SCH ×2 (09:52→18:14)
[2021-03-11] MEDS: NICOTINE 7 MG/24 HOURS TOPICAL PATCH TD SCH (09:52)
[2021-03-11] MEDS: NICOTINE 10 MG CARTRIDGE (INHALER) IH PRN ×3 (09:54→21:36)
[2021-03-11] MEDS: MAGNESIUM HYDROX 2400MG/30ML ORAL SUSPENSION 30 ML CUP PO PRN (14:49)
[2021-03-11] MEDS: MELATONIN 5 MG TABLETS PO SCH (21:31)
[2021-03-11] MEDS: THIAMINE HCL 100 MG TABLET (FP) PO SCH (21:31)
[2021-03-11] MEDS: hydrOXYzine PAMOATE 25 MG CAPSULE (FP) PO PRN (21:32)
[2021-03-11] MEDS: TAMSULOSIN HCL 0.4 MG CAP PO SCH (21:32)
[2021-03-12] MEDS: HYDROCHLOROTHIAZIDE 25 MG TABLET (FP) PO SCH (06:16)
[2021-03-12] MEDS: ENALAPRIL MALEATE 10 MG TABLET PO SCH (09:58)
[2021-03-12] MEDS: NICOTINE 7 MG/24 HOURS TOPICAL PATCH TD SCH (09:58)
[2021-03-12] MEDS: PRENATAL VITAMINS W/ FOLIC ACID TABLET (FP) PO SCH (09:58)
[2021-03-12] MEDS: hydrOXYzine PAMOATE 25 MG CAPSULE (FP) PO PRN ×2 (09:58→21:44)
[2021-03-12] MEDS: BUPRENORPHINE/NALOXONE 8 MG/2 MG FILM PACKET SL SCH ×2 (09:58→18:02)
[2021-03-12] MEDS: amLODIPine BESYLATE 10 MG TABLET (FP) PO SCH (09:58)
[2021-03-12] MEDS: NICOTINE 10 MG CARTRIDGE (INHALER) IH PRN ×2 (12:32→21:44)
[2021-03-12] MEDS: TAMSULOSIN HCL 0.4 MG CAP PO SCH (21:44)
[2021-03-12] MEDS: MELATONIN 5 MG TABLETS PO SCH (21:44)
[2021-03-12] MEDS: THIAMINE HCL 100 MG TABLET (FP) PO SCH (21:44)
[2021-03-13] MEDS: HYDROCHLOROTHIAZIDE 25 MG TABLET (FP) PO SCH (07:03)
[2021-03-13] MEDS: PRENATAL VITAMINS W/ FOLIC ACID TABLET (FP) PO SCH (10:40)
[2021-03-13] MEDS: hydrOXYzine PAMOATE 25 MG CAPSULE (FP) PO PRN (10:40)
[2021-03-13] MEDS: NICOTINE 7 MG/24 HOURS TOPICAL PATCH TD SCH (10:41)
[2021-03-13] MEDS: amLODIPine BESYLATE 10 MG TABLET (FP) PO SCH (10:41)
[2021-03-13] MEDS: ENALAPRIL MALEATE 10 MG TABLET PO SCH (10:41)
[2021-03-13] MEDS: NICOTINE 10 MG CARTRIDGE (INHALER) IH PRN ×2 (10:42→18:11)
[2021-03-13] MEDS ORDERED: BUPRENORPHINE/NALOXONE 8 MG/2 MG FILM PACKET SL ONE (10:43)
[2021-03-13] MEDS: BUPRENORPHINE/NALOXONE 8 MG/2 MG FILM PACKET SL SCH (18:08)
[2021-03-13] MEDS: THIAMINE HCL 100 MG TABLET (FP) PO SCH (21:45)
[2021-03-13] MEDS: TAMSULOSIN HCL 0.4 MG CAP PO SCH (21:45)
[2021-03-13] MEDS: SUVOREXANT 10 MG TABLET PO PRN (21:46)
[2021-03-13] MEDS: ACETAMINOPHEN 325 MG TABLET (FP) PO PRN (21:47)
[2021-03-14] MEDS: HYDROCHLOROTHIAZIDE 25 MG TABLET (FP) PO SCH (06:06)
[2021-03-14] MEDS: NICOTINE 7 MG/24 HOURS TOPICAL PATCH TD SCH (10:29)
[2021-03-14] MEDS: PRENATAL VITAMINS W/ FOLIC ACID TABLET (FP) PO SCH (10:29)
[2021-03-14] MEDS: ENALAPRIL MALEATE 10 MG TABLET PO SCH (10:30)
[2021-03-14] MEDS: BUPRENORPHINE/NALOXONE 8 MG/2 MG FILM PACKET SL SCH ×2 (10:30→17:52)
[2021-03-14] MEDS: amLODIPine BESYLATE 10 MG TABLET (FP) PO SCH (10:30)
[2021-03-14] MEDS: NICOTINE 10 MG CARTRIDGE (INHALER) IH PRN ×2 (14:56→21:27)
[2021-03-14] MEDS: TAMSULOSIN HCL 0.4 MG CAP PO SCH (21:25)
[2021-03-14] MEDS: THIAMINE HCL 100 MG TABLET (FP) PO SCH (21:25)
[2021-03-14] MEDS: SUVOREXANT 10 MG TABLET PO PRN (21:27)
[2021-03-15] MEDS: HYDROCHLOROTHIAZIDE 25 MG TABLET (FP) PO SCH (06:23)
[2021-03-15] MEDS: NICOTINE 7 MG/24 HOURS TOPICAL PATCH TD SCH (10:29)
[2021-03-15] MEDS: ENALAPRIL MALEATE 10 MG TABLET PO SCH (10:30)
[2021-03-15] MEDS: BUPRENORPHINE/NALOXONE 8 MG/2 MG FILM PACKET SL SCH ×2 (10:30→17:55)
[2021-03-15] MEDS: amLODIPine BESYLATE 10 MG TABLET (FP) PO SCH (10:30)
[2021-03-15] MEDS: PRENATAL VITAMINS W/ FOLIC ACID TABLET (FP) PO SCH (10:30)
[2021-03-15] MEDS: NICOTINE 10 MG CARTRIDGE (INHALER) IH PRN ×2 (16:50→21:33)
[2021-03-15] MEDS: THIAMINE HCL 100 MG TABLET (FP) PO SCH (21:33)
[2021-03-15] MEDS: SUVOREXANT 10 MG TABLET PO PRN (21:33)
[2021-03-15] MEDS: TAMSULOSIN HCL 0.4 MG CAP PO SCH (21:34)
[2021-03-16] MEDS: HYDROCHLOROTHIAZIDE 25 MG TABLET (FP) PO SCH (06:58)
[2021-03-16] MEDS: NICOTINE 10 MG CARTRIDGE (INHALER) IH PRN ×3 (06:59→21:37)
[2021-03-16] MEDS: PRENATAL VITAMINS W/ FOLIC ACID TABLET (FP) PO SCH (10:01)
[2021-03-16] MEDS: BUPRENORPHINE/NALOXONE 8 MG/2 MG FILM PACKET SL SCH ×2 (10:02→17:52)
[2021-03-16] MEDS: amLODIPine BESYLATE 10 MG TABLET (FP) PO SCH (10:02)
[2021-03-16] MEDS: NICOTINE 7 MG/24 HOURS TOPICAL PATCH TD SCH (10:02)
[2021-03-16] MEDS: ENALAPRIL MALEATE 10 MG TABLET PO SCH (10:02)
[2021-03-16] MEDS: MAGNESIUM HYDROX 2400MG/30ML ORAL SUSPENSION 30 ML CUP PO PRN (10:05)
[2021-03-16] MEDS: THIAMINE HCL 100 MG TABLET (FP) PO SCH (21:36)
[2021-03-16] MEDS: TAMSULOSIN HCL 0.4 MG CAP PO SCH (21:36)
[2021-03-16] MEDS: hydrOXYzine PAMOATE 25 MG CAPSULE (FP) PO PRN (21:37)
[2021-03-16] MEDS: SUVOREXANT 10 MG TABLET PO PRN (21:39)
[2021-03-17] MEDS: HYDROCHLOROTHIAZIDE 25 MG TABLET (FP) PO SCH (06:18)
[2021-03-17] MEDS: NICOTINE 10 MG CARTRIDGE (INHALER) IH PRN ×3 (06:18→21:44)
[2021-03-17] MEDS: amLODIPine BESYLATE 10 MG TABLET (FP) PO SCH (10:12)
[2021-03-17] MEDS: PRENATAL VITAMINS W/ FOLIC ACID TABLET (FP) PO SCH (10:12)
[2021-03-17] MEDS: ENALAPRIL MALEATE 10 MG TABLET PO SCH (10:12)
[2021-03-17] MEDS: NICOTINE 7 MG/24 HOURS TOPICAL PATCH TD SCH (10:13)
[2021-03-17] MEDS: BUPRENORPHINE/NALOXONE 8 MG/2 MG FILM PACKET SL SCH ×2 (10:13→17:37)
[2021-03-17] MEDS: TAMSULOSIN HCL 0.4 MG CAP PO SCH (21:42)
[2021-03-17] MEDS: THIAMINE HCL 100 MG TABLET (FP) PO SCH (21:43)
[2021-03-17] MEDS: SUVOREXANT 10 MG TABLET PO PRN (21:43)
[2021-03-18] MEDS: NICOTINE 10 MG CARTRIDGE (INHALER) IH PRN ×4 (06:24→21:27)
[2021-03-18] MEDS: HYDROCHLOROTHIAZIDE 25 MG TABLET (FP) PO SCH (06:24)
[2021-03-18] MEDS: NICOTINE 7 MG/24 HOURS TOPICAL PATCH TD SCH (10:17)
[2021-03-18] MEDS: PRENATAL VITAMINS W/ FOLIC ACID TABLET (FP) PO SCH (10:17)
[2021-03-18] MEDS: amLODIPine BESYLATE 10 MG TABLET (FP) PO SCH (10:17)
[2021-03-18] MEDS: ENALAPRIL MALEATE 10 MG TABLET PO SCH (10:18)
[2021-03-18] MEDS: BUPRENORPHINE/NALOXONE 8 MG/2 MG FILM PACKET SL SCH ×2 (10:18→17:51)
[2021-03-18] MEDS: ACETAMINOPHEN 325 MG TABLET (FP) PO PRN (21:28)
[2021-03-18] MEDS: THIAMINE HCL 100 MG TABLET (FP) PO SCH (21:28)
[2021-03-18] MEDS: TAMSULOSIN HCL 0.4 MG CAP PO SCH (21:28)
[2021-03-18] MEDS ORDERED: SUVOREXANT 10 MG TABLET PO PRN (22:00)
[2021-03-19] MEDS: HYDROCHLOROTHIAZIDE 25 MG TABLET (FP) PO SCH (06:11)
[2021-03-19 07:09] VITALS: TEMP 97.8
[2021-03-19] MEDS: PRENATAL VITAMINS W/ FOLIC ACID TABLET (FP) PO SCH (09:11)
[2021-03-19] MEDS: ENALAPRIL MALEATE 10 MG TABLET PO SCH (09:12)
[2021-03-19] MEDS: amLODIPine BESYLATE 10 MG TABLET (FP) PO SCH (09:12)
[2021-03-19] MEDS: NICOTINE 7 MG/24 HOURS TOPICAL PATCH TD SCH (09:13)
[2021-03-19] MEDS: BUPRENORPHINE/NALOXONE 8 MG/2 MG FILM PACKET SL SCH (09:13)
[2021-03-19 09:27] VITALS: BP 143/81; PULSE 92
== END 2021-03-19 10:10 | disposition home or self-care (01) | DRG 772 ==
LOC: YASAS 20:15 → Y5N 20:16
PROVIDERS: ADMIT Allergy & Immunology; ATTEND Allergy & Immunology
PROC: HZ42ZZZ Group Counseling for Substance Abuse Treatment, Cognitive-Behavioral (ICD-10-PCS; principal; 2021-02-28)
DX: F11.20 Opioid dependence, uncomplicated (principal); F10.20 Alcohol dependence, uncomplicated; F14.20 Cocaine dependence, uncomplicated; F17.210 Nicotine dependence, cigarettes, uncomplicated; G47.00 Insomnia, unspecified; I10 Essential (primary) hypertension; M54.50 Low back pain, unspecified; G89.29 Other chronic pain; N40.1 Benign prostatic hyperplasia with lower urinary tract symptoms; R35.1 Nocturia; A53.0 Latent syphilis, unspecified as early or late; Z86.19 Personal history of other infectious and parasitic diseases; Z87.39 Personal history of other diseases of the musculoskeletal system and connective tissue; Z91.018 Allergy to other foods; Z56.0 Unemployment, unspecified; Z59.00 Homelessness unspecified
CPT/HCPCS: C9803; U0003; U0005

== ENCOUNTER 2021-07-23 09:15 | Inpatient (IN) | payer OTHER ==
[2021-07-23 09:55] VITALS: BMI 33.2
[2021-07-23] MEDS ORDERED: MAGNESIUM HYDROX 2400MG/30ML ORAL SUSPENSION 30 ML CUP PO PRN (10:13)
[2021-07-23] MEDS ORDERED: BENZOCAINE/MENTHOL (CHLORASEPTIC ) LOZENGE MM PRN (10:13)
[2021-07-23] MEDS ORDERED: DICYCLOMINE HCL 10 MG CAPSULE PO PRN (10:13)
[2021-07-23] MEDS ORDERED: ACETAMINOPHEN 325 MG TABLET (FP) PO PRN ×2 (10:13)
[2021-07-23] MEDS ORDERED: BISMUTH SUBSALICYLATE 262 MG/15 ML BTL PO PRN (10:13)
[2021-07-23] MEDS ORDERED: MAG HYDROX/AL HYDROX/SIMETH 30 ML UNIT-DOSE CUP PO PRN (10:13)
[2021-07-23] MEDS ORDERED: MAGNESIUM CITRATE 300 ML BOTTLE PO PRN (10:13)
[2021-07-23] MEDS ORDERED: IBUPROFEN 400 MG TABLET (FP) PO PRN (10:13)
[2021-07-23] MEDS ORDERED: IBUPROFEN 600 MG TABLET (FP) PO PRN (10:13)
[2021-07-23] MEDS ORDERED: ONDANSETRON *ODT* 4 MG TABLET SL PRN (10:13)
[2021-07-23] MEDS: HYDROCHLOROTHIAZIDE 25 MG TABLET (FP) PO SCH (11:54)
[2021-07-23] MEDS: amLODIPine BESYLATE 10 MG TABLET (FP) PO SCH (11:54)
[2021-07-23] MEDS: hydrOXYzine PAMOATE 25 MG CAPSULE (FP) PO SCH ×2 (13:46→17:44)
[2021-07-23] MEDS: LOPERAMIDE HCL 2 MG CAPSULE PO PRN (13:46)
[2021-07-23] MEDS: NICOTINE 10 MG CARTRIDGE (INHALER) IH PRN (14:25)
[2021-07-23] MEDS ORDERED: cloNIDine HCL 0.1 MG TABLET PO ONE (17:31)
[2021-07-23] MEDS ORDERED: chlordiazePOXIDE HCL 25 MG CAPSULE PO PRN (17:49)
[2021-07-23] MEDS ORDERED: methaDONE HCL 10 MG TABLET (FOR DETOX USE ONLY) PO ONE (18:45)
[2021-07-23] MEDS: cloNIDine HCL 0.1 MG TABLET PO PRN (21:36)
[2021-07-23] MEDS: chlordiazePOXIDE HCL 25 MG CAPSULE PO SCH (22:27)
[2021-07-23] MEDS: MELATONIN 5 MG TABLETS PO SCH (22:28)
[2021-07-23] MEDS: THIAMINE HCL 100 MG TABLET (FP) PO SCH (22:28)
[2021-07-23] MEDS: TAMSULOSIN HCL 0.4 MG CAP PO SCH (22:28)
[2021-07-24] MEDS: chlordiazePOXIDE HCL 25 MG CAPSULE PO SCH ×4 (05:21→22:22)
[2021-07-24] MEDS: LOPERAMIDE HCL 2 MG CAPSULE PO PRN (05:23)
[2021-07-24] MEDS: METHOCARBAMOL 500 MG TABLET PO PRN (05:24)
[2021-07-24] MEDS ORDERED: cloNIDine HCL 0.1 MG TABLET PO ONE (08:00)
[2021-07-24] MEDS ORDERED: methaDONE HCL 10 MG TABLET (FOR DETOX USE ONLY) ONE (09:10)
[2021-07-24 10:16] LABS: HEMATOCRIT 42.2 % (35.4-49); HEMOGLOBIN 13.9 GM/dL (11.7-16.9); MCH 30.3 pg (25.7-33.7); MCHC 32.9 g/dl (32.0-35.9); MEAN CELL VOLUME 92.1 fl (80-96); MEAN PLT VOLUME 9.3 fl (7.5-11.1); PLATELET COUNT 224 10^3/uL (134-434); RBC 4.58 M/mm3 (4.00-5.60); RDW 13.9 % (11.9-15.9); WHITE BLOOD COUNT 6.7 K/mm3 (4.0-10.0)
[2021-07-24 10:23] LABS: ALBUMIN 3.6 g/dl (3.4-5.0); CREATININE 1.4 mg/dL (0.55-1.3)
[2021-07-24 10:24] LABS: CALCIUM 9.5 mg/dL (8.5-10.1)
[2021-07-24 10:25] LABS: BILIRUBIN,TOTAL 0.4 mg/dL (0.2-1); TOT PROT 7.5 g/dl (6.4-8.2)
[2021-07-24] MEDS: PRENATAL VITAMINS W/ FOLIC ACID TABLET (FP) PO SCH (10:26)
[2021-07-24] MEDS: amLODIPine BESYLATE 10 MG TABLET (FP) PO SCH (10:26)
[2021-07-24] MEDS: HYDROCHLOROTHIAZIDE 25 MG TABLET (FP) PO SCH (10:26)
[2021-07-24] MEDS: cloNIDine HCL 0.1 MG TABLET PO PRN ×2 (17:36→22:22)
[2021-07-24] MEDS: NICOTINE 10 MG CARTRIDGE (INHALER) IH PRN (18:20)
[2021-07-24] MEDS: MELATONIN 5 MG TABLETS PO SCH (22:22)
[2021-07-24] MEDS: TAMSULOSIN HCL 0.4 MG CAP PO SCH (22:22)
[2021-07-24] MEDS: THIAMINE HCL 100 MG TABLET (FP) PO SCH (22:22)
[2021-07-25] MEDS: chlordiazePOXIDE HCL 25 MG CAPSULE PO SCH ×4 (06:33→22:24)
[2021-07-25] MEDS ORDERED: methaDONE HCL 10 MG TABLET (FOR DETOX USE ONLY) PO ONE (10:00)
[2021-07-25] MEDS: amLODIPine BESYLATE 10 MG TABLET (FP) PO SCH (10:32)
[2021-07-25] MEDS: PRENATAL VITAMINS W/ FOLIC ACID TABLET (FP) PO SCH (10:32)
[2021-07-25] MEDS: HYDROCHLOROTHIAZIDE 25 MG TABLET (FP) PO SCH (10:32)
[2021-07-25] MEDS: METHOCARBAMOL 500 MG TABLET PO PRN (10:32)
[2021-07-25] MEDS: cloNIDine HCL 0.1 MG TABLET PO PRN ×2 (17:40→22:25)
[2021-07-25] MEDS: TAMSULOSIN HCL 0.4 MG CAP PO SCH (22:23)
[2021-07-25] MEDS: MELATONIN 5 MG TABLETS PO SCH (22:23)
[2021-07-25] MEDS: THIAMINE HCL 100 MG TABLET (FP) PO SCH (22:23)
[2021-07-26] MEDS ORDERED: chlordiazePOXIDE HCL 10 MG CAPSULE PO PRN
[2021-07-26] MEDS: chlordiazePOXIDE HCL 10 MG CAPSULE PO SCH ×4 (06:49→22:24)
[2021-07-26] MEDS ORDERED: methaDONE HCL 10 MG TABLET (FOR DETOX USE ONLY) ONE (08:42)
[2021-07-26] MEDS: HYDROCHLOROTHIAZIDE 25 MG TABLET (FP) PO SCH (10:11)
[2021-07-26] MEDS: amLODIPine BESYLATE 10 MG TABLET (FP) PO SCH (10:11)
[2021-07-26] MEDS: PRENATAL VITAMINS W/ FOLIC ACID TABLET (FP) PO SCH (10:11)
[2021-07-26] MEDS ORDERED: cloNIDine HCL 0.1 MG TABLET PO ONE ×2 (17:46→22:13)
[2021-07-26] MEDS: THIAMINE HCL 100 MG TABLET (FP) PO SCH (22:23)
[2021-07-26] MEDS: TAMSULOSIN HCL 0.4 MG CAP PO SCH (22:23)
[2021-07-26] MEDS: MELATONIN 5 MG TABLETS PO SCH (22:23)
[2021-07-26] MEDS: NICOTINE 10 MG CARTRIDGE (INHALER) IH PRN (22:26)
[2021-07-27] MEDS: METHOCARBAMOL 500 MG TABLET PO PRN ×2 (05:22→22:26)
[2021-07-27] MEDS: chlordiazePOXIDE HCL 10 MG CAPSULE PO SCH ×2 (05:23→17:43)
[2021-07-27] MEDS ORDERED: methaDONE HCL 10 MG TABLET (FOR DETOX USE ONLY) PO ONE (10:00)
[2021-07-27] MEDS: amLODIPine BESYLATE 10 MG TABLET (FP) PO SCH (10:24)
[2021-07-27] MEDS: PRENATAL VITAMINS W/ FOLIC ACID TABLET (FP) PO SCH (10:24)
[2021-07-27] MEDS: HYDROCHLOROTHIAZIDE 25 MG TABLET (FP) PO SCH (10:24)
[2021-07-27] MEDS: cloNIDine HCL 0.1 MG TABLET PO PRN ×2 (13:33→22:26)
[2021-07-27] MEDS: THIAMINE HCL 100 MG TABLET (FP) PO SCH (22:26)
[2021-07-27] MEDS: MELATONIN 5 MG TABLETS PO SCH (22:26)
[2021-07-27] MEDS: TAMSULOSIN HCL 0.4 MG CAP PO SCH (22:26)
[2021-07-28] MEDS ORDERED: chlordiazePOXIDE HCL 10 MG CAPSULE PO ONE (05:00)
[2021-07-28 07:22] VITALS: PULSE 65
[2021-07-28 09:13] VITALS: BP 162/88; TEMP 96.9
[2021-07-28] MEDS: amLODIPine BESYLATE 10 MG TABLET (FP) PO SCH (10:33)
[2021-07-28] MEDS: HYDROCHLOROTHIAZIDE 25 MG TABLET (FP) PO SCH (10:33)
[2021-07-28] MEDS: PRENATAL VITAMINS W/ FOLIC ACID TABLET (FP) PO SCH (10:33)
== END 2021-07-28 11:41 | disposition home or self-care (01) | DRG 773 ==
LOC: YASAS 09:15 → Y3N 10:40
PROVIDERS: ADMIT Allergy & Immunology; ATTEND Surgery
PROC: HZ2ZZZZ Detoxification Services for Substance Abuse Treatment (ICD-10-PCS; principal; 2021-07-23)
DX: F11.23 Opioid dependence with withdrawal (principal); F10.230 Alcohol dependence with withdrawal, uncomplicated; F14.20 Cocaine dependence, uncomplicated; F17.210 Nicotine dependence, cigarettes, uncomplicated; I10 Essential (primary) hypertension; N40.0 Benign prostatic hyperplasia without lower urinary tract symptoms; R76.8 Other specified abnormal immunological findings in serum; Z86.19 Personal history of other infectious and parasitic diseases
CPT/HCPCS: 36415; 80053; 82947; 82962; 83036; 85027; 86593; 86780; 87811; 93005; 93010; C9803-CS; J0735; U0003; U0005